=== PATIENT | male | born 1935 | race Caucasian/White ===

== ENCOUNTER → 2019-03-30 10:45 | Outpatient (BNVA) | payer MEDICARE, SELFPAY | PROVIDERS: Family Provider Nurse Practitioner Family; PCP Nurse Practitioner Family; Visit Provider Internal Medicine Cardiovascular Disease | DX: I10 Essential (primary) hypertension (principal); E78.2 Mixed hyperlipidemia; E78.5 Hyperlipidemia, unspecified; I48.11 Longstanding persistent atrial fibrillation; I25.10 Atherosclerotic heart disease of native coronary artery without angina pectoris | CPT/HCPCS: 80061 ==

== ENCOUNTER → 2019-12-22 11:56 | Outpatient (BNVA) | payer MEDICARE, SELFPAY | PROVIDERS: Family Provider Nurse Practitioner Family; Visit Provider Internal Medicine Cardiovascular Disease | DX: E78.2 Mixed hyperlipidemia (principal) | CPT/HCPCS: 80061; 80076 ==

== ENCOUNTER → 2020-06-20 12:19 | Outpatient (BNVA) | payer MEDICARE, SELFPAY | PROVIDERS: Family Provider Nurse Practitioner Family; Visit Provider Internal Medicine Cardiovascular Disease | DX: E78.2 Mixed hyperlipidemia (principal) | CPT/HCPCS: 80061; 80076 ==

== ENCOUNTER 2020-10-26 17:43 | Emergency (ER) | payer MEDICARE, SELFPAY ==
[2020-10-26 17:50] VITALS: BP 126/78; PULSE 75; RESP 16; TEMP 37.7; O2SAT 94; BMI 23.7
--- NOTE | 2020-10-26 18:59 | ED_ITS ---
HPI - Weakness General: Chief complaint: Weakness Stated complaint: FEVER, DEHYDRATED (P/PCP), COUGH Time Seen by Provider: 10/26/20 18:59 History of Present Illness: HPI Narrative: 84-year-old male patient comes in today for fever. Patient believes he got overheated yesterday. Patient does report he did get exposed to COVID-19 at [employer] last week. Patient appears mildly unwell but not toxic. Patient refused COVID-19 testing. Patient is alert and oriented and responds appropriate to questions. Patient son is chaperoning. Associated symptoms: Reports fever(s) Review of Systems General: Reports: 10 or more systems reviewed and unremarkable except in HPI and below Const: Reports: fever(s) PFS ED PFSH: Medical History (Updated 10/26/20 @ 20:12 by KILO Thomson) ASHD (arteriosclerotic heart disease) Had CABG July of [address] Valadez.HAD THREEE VESSEL CABG Atrial fibrillation Hyperlipidemia Hypertension Surgical History History of cataract removal with insertion of prosthetic lens Hx of CABG Family History Brother CAD (coronary artery disease) Family/Other Chronic kidney disease (CKD) Dementia Denies family history of Diabetes Clotting disorder Suicide Anesthesia complication Bleeding disorder Lung disease Cancer Stroke Social History Smoking and tobacco status: never smoked Alcohol intake: never Physical Exam Const: COMMON NORMALS: no acute distress and patient oriented x3 GENERAL APPEARANCE: cooperative HENMT: COMMON NORMALS: normocephalic and Normal external nose present HEAD & SCALP: normal to inspection and normocephalic NOSE: Normal external nose present MOUTH: Normal oral and palatal mucosa present THROAT: posterior oropharynx normal Eye: GENERAL EYE: appearance normal, both eyes and all related structures Neck/C-Spine: COMMON NORMALS: full ROM Lymph: LYMPHATIC: no lymphadenopathy noted Chest: COMMONS NORMALS: normal inspection of the chest Resp: COMMON NORMALS: normal respiratory effort and clear to auscultation bilaterally EFFORT & INSPECTION: Yes able to speak in complete sentences AUSCULTATION: clear to auscultation bilaterally Cardio: COMMON NORMALS: regular rate and regular rhythm RATE: regular rate RHYTHM: regular rhythm GI: COMMON NORMALS: non-tender : COMMON NORMALS: Yes no CVA tenderness BLADDER/KIDNEY EXAM: Yes no CVA tenderness Back/Pelvis: COMMON NORMALS: no CVA tenderness and thoracic and lumbar spine normal to inspection Extremity: COMMON NORMALS: normal to inspection Neuro: COMMON NORMALS: patient oriented x3 and moves all extremities Psych: COMMON NORMALS: mental status grossly normal and cooperative Skin: COMMON NORMALS: no rashes or lesions noted GENERAL SKIN EXAM: no rashes or lesions noted Course Vital Signs: Vital signs: Vital Signs Temperature 98.2 F 10/26/20 20:09 Pulse Rate 75 10/26/20 20:09 Respiratory Rate 18 10/26/20 20:09 Blood Pressure 147/83 10/26/20 20:09 Pulse Oximetry 96 10/26/20 20:09 MDM - Weakness MDM Narrative: Medical decision making narrative: 84-year-old male patient comes in today for complaints of heat exhaustion. Patient states he got overheated yesterday while working outside at 102 fever last night but today has not run much of a fever. Patient does admit that he was exposed to COVID-19 through his [facility]. Patient does report an occasional cough. On exam respirations are even lungs are clear to auscultation. Abdomen is soft with some hyperactive bowel sounds. Skin is warm and dry. Oral mucosa is mildly d ry. Differential diagnosis includes heat exhaustion, viral syndrome, pneumonia. Chest x-ray was normal. Laboratory values were unremarkable. Patient refused COVID-19 testing. Patient was infused with 1 L of IV fluid and felt improved after the fluids. We will go ahead and encourage patient to treat for viral syndrome. I suspect COVID-19 due to exposure but patient refused testing and further treatment at this time. Patient can return as needed for worsening symptoms or new concerns. Lab Data: Labs: Lab Results 10/26/20 10/26/20 Range/Units 18:55 18:55 WBC 6.8 (4.0-10.0) 10^3/ uL RBC 3.61 L (4.1-5.3) 10^6/u L Hgb 11.6 L (11.7-16.6) g/dL Hct 36.5 L (42.0-52.0) % MCV 101.1 H (80-94) fl MCH 32.1 (28.0-34.0) pg MCHC 31.8 (30.0-36.0) g/dL RDW 13.9 (12.1-15.1) % Plt Count 163 (130-400) 10^3/c mm MPV 10.3 (7.4-10.4) fL Neut % (Auto) 59.6 % Lymph % (Auto) 19.3 % [place] % (Auto) 18.6 % Eos % (Auto) 1.8 % Baso % (Auto) 0.3 % Neut # (Auto) 4.08 (1.8-7.7) 10^3/u L Lymph # (Auto) 1.3 (0.8-4.8) 10^3/u L [place] # (Auto) 1.3 H (0.2-0.9) 10^3/u L Eos # (Auto) 0.1 (0.0-0.8) 10^3/u L Baso # (Auto) 0.0 (0.0-0.1) 10^3/u L Nucleated RBC % (a uto) 0 % Nucleated RBCs # 0.0 /100WBC Sodium 134 L (136-145) mmol/L Potassium 3.9 (3.5-5.1) mmol/L Chloride 99 (98-107) mmol/L Carbon Dioxide 26 (22-29) mmol/L Anion Gap 12.9 (5-19) BUN 23 (8-23) mg/dL Creatinine 0.9 (0.7-1.2) mg/dL GFR Calculation Not Reportable Glucose 91 (65-115) mg/dL Calculated Osmolal ity 281 L (285-295) mOsm/k g Calcium 8.1 L (8.5-10.5) mg/dL Total Bilirubin 0.2 (0.15-1.2) mg/dL AST 27 (0-40) U/L ALT 13 (0-41) U/L Alkaline Phosphata se 66 (40-130) IU/L Creatine Kinase 178 (39-308) U/L Total Protein 6.6 (6.6-8.7) g/dL Albumin 3.8 (3.5-5.2) g/dL Globulin 2.8 (1.3-4.6) g/dL Discharge Plan Discharge Patient Disposition: Home Clinical Impression: Dehydration, mild, Viral syndrome Condition: Stable Prescriptions: No Action multivitamin Tablet 1 tab PO QAM RF: 0 metronidazole 1 % gel 1 applic TOPICAL DAILY RF: 0 aspirin 325 mg tablet 325 mg PO DAILY RF: 0 Coricidin HBP Chest Juan Diego-Cough 10-200 mg capsule 1 tab-cap PO Q8H PRNRF: 0 cetirizine 5 mg tablet 10 mg PO DAILY RF: 0 rosuvastatin 5 mg tablet See Rx Instructions .ROUTE .COMPLEX Qty: 90 RF: 3 metoprolol tartrate 25 mg tablet 12.5 mg PO BID Qty: 90 RF: 3 Discharge Orders: Discharge ED (Routine); Ordered 10/26/20 Ordered By: Serjio Roblero Referrals: JUAN ALBERTO Cortes, OWNER CONSULTING ENGINEER [Primary Care Provider] - Discharge Diet: Usual diet Discharge Activity: Increase activity as tolerated Patient Instructions: Viral Syndrome (ED), Opioid Safety Activity Restrictions/Additional Instructions: Home and rest. Drink plenty of fluids. Use Pedialyte, or Gatorade diluted with water. Use acetaminophen as needed for fever and discomfort. Follow-up with primary care for further instruction. Return to the ER for worsening symptoms or new concerns. Coding Level of Care Code ED Building Architectural Designer for Bala Das
[2020-10-26] MEDS: sodium chloride 0.9% 1,000 ML 999 ML IV (19:00)
--- NOTE | 2020-10-26 19:05 | XRR_ITS ---
PROCEDURE INFORMATION: Exam: XR Chest Exam date and time: 10/26/2020 7:05 PM Age: 84 years old Clinical indication: Cough and fever; Additional info: Cough, fever TECHNIQUE: Imaging protocol: XR of the chest. Views: 1 view. COMPARISON: CR Chest 2 views* [id number] 03/15/2014 11:39 AM FINDINGS: Lungs: Stable chronic interstitial changes in both lungs. No consolidation. Nipple shadow projects over the left lung base. Pleural spaces: Unremarkable. No pleural effusion. No pneumothorax. Heart/Mediastinum: Unremarkable. No cardiomegaly. Bones/joints: Sternotomy wires. XR/XR chest 1V portable [id number] IMPRESSION: No acute finding.
[2020-10-26 19:09] LABS: Basophils % 0.3 %; Eosinophils # 0.1 10^3/uL (0.0-0.8); Eosinophils % 1.8 %; Hematocrit 36.5 % (42.0-52.0); Hemoglobin 11.6 g/dL (11.7-16.6); Lymphocytes # 1.3 10^3/uL (0.8-4.8); Lymphocytes % 19.3 %; Mean Corpuscular HGB Conc 31.8 g/dL (30.0-36.0); Mean Corpuscular Hemoglobin 32.1 pg (28.0-34.0); Mean Corpuscular Volume 101.1 fl (80-94); Mean Platelet Volume 10.3 fL (7.4-10.4); Monocytes # 1.3 10^3/uL (0.2-0.9); Monocytes % 18.6 %; Neutrophils # 4.08 10^3/uL (1.8-7.7); Neutrophils % 59.6 %; Nucleated Red Blood Cells % 0 %; Platelet Count 163 10^3/cmm (130-400); Red Blood Count 3.61 10^6/uL (4.1-5.3); Red Cell Distribution Width 13.9 % (12.1-15.1); White Blood Count 6.8 10^3/uL (4.0-10.0)
--- NOTE | 2020-10-26 19:35 | PC.NURSE ---
patient refused covid swab
[2020-10-26 19:55] LABS: Alanine Aminotransferase 13 U/L (0-41); Albumin Level 3.8 g/dL (3.5-5.2); Alkaline Phosphatase 66 IU/L (40-130); Anion Gap 12.9 (5-19); Aspartate Amino Transferase 27 U/L (0-40); Blood Urea Nitrogen 23 mg/dL (8-23); Calcium 8.1 mg/dL (8.5-10.5); Carbon Dioxide 26 mmol/L (22-29); Chloride 99 mmol/L (98-107); Creatine Phosphokinase 178 U/L (39-308); Globulin 2.8 g/dL (1.3-4.6); Glucose 91 mg/dL (65-115); Osmolality Calculated 281 mOsm/kg (285-295); Potassium 3.9 mmol/L (3.5-5.1); Sodium 134 mmol/L (136-145); Total Bilirubin 0.2 mg/dL (0.15-1.2); Total Protein 6.6 g/dL (6.6-8.7)
[2020-10-26 20:09] VITALS: BP 147/83; PULSE 75; RESP 18; TEMP 36.8; O2SAT 96
== END 2020-10-26 20:25 | disposition home or self-care (01) ==
PROVIDERS: Emergency Medicine; Absent Provider Internal Medicine Cardiovascular Disease; Emergency Provider Nurse Practitioner Family; PCP Nurse Practitioner Family
DX: E86.0 Dehydration (principal); B34.9 Viral infection, unspecified; Z79.82 Long term (current) use of aspirin; E78.5 Hyperlipidemia, unspecified; I10 Essential (primary) hypertension; Z95.1 Presence of aortocoronary bypass graft
CPT/HCPCS: 71045; 80053; 82550; 85025; 96360; 99283; J7030

== ENCOUNTER → 2020-11-03 09:05 | Outpatient (BNVA) | payer MEDICARE, SELFPAY | PROVIDERS: PCP Nurse Practitioner Family; Visit Provider Nurse Practitioner Family | DX: R06.02 Shortness of breath (principal); I48.11 Longstanding persistent atrial fibrillation; Z95.1 Presence of aortocoronary bypass graft | CPT/HCPCS: 71046 ==

== ENCOUNTER 2020-11-03 10:50 | Inpatient (IN) | payer MEDICARE, SELFPAY ==
[2020-11-03] VITALS (22 sets, daily range): BP systolic 106–144; BP diastolic 55–97; PULSE 80–160; RESP 20–105; TEMP 36.6–37.3; O2SAT 86–99; BMI 21.9
--- NOTE | 2020-11-03 11:03 | ECG_ITS ---
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1935 Requested By: Eduard Davison Order Number: [id number] Reading MD: CARLOS ROWLAND Measurements Intervals [place] Rate: 107 P: AR: QRS: 10 QRSD: 93 T: 123 QT: 336 QTc: 450 Interpretive Statements ATRIAL FIBRILLATION WITH RAPID VENTRICULAR RESPONSE NONSPECIFIC ST & T-WAVE ABNORMALITY WARNING: DATA QUALITY MAY AFFECT INTERPRETATION No previous ECG available for comparison Electronically Signed On 11-04-2020 20:16:44 CDT by CARLOS ROWLAND [id number]
--- NOTE | 2020-11-03 11:03 | XR_ITS ---
WS: [id number] Portable AP upright chest, 11/03/2020, 1114 hours Clinical Data: dyspnea/cough Comparison: PA and lateral chest, 11/03/2020. 0914 hours Findings: The bilateral patchy opacities remain the same. The heart is slightly enlarged. The aortic arch and descending aorta show tortuosity. There is a small bilateral pleural effusions. Midline ster notomy sutures are present. There are monitor leads on the chest wall. XR/XR chest 1V portable [id number] Impression: 1. Bilateral patchy opacities consistent with pneumonia. 2. Cardiomegaly and atherosclerosis.
--- NOTE | 2020-11-03 11:05 | W.ED.COVID ---
HPI - COVID General: Chief Complaint: COVID symptoms Stated Complaint: PNEUMONIA, SOB, AFIB 117 Time Seen by Provider: 11/03/20 11:02 History of Present Illness: HPI Narrative: 84-year-old male presents to the emergency room with complaints of shortness of breath. Symptoms began 1 week ago.He had been exposed to excessive heat outdoors for period of time and he was in atrial fibrillation. He had been febrile since the night before. He was initially seen in the clinic and sent to the ER. Patient had a known Covid exposure approximately a week prior at [facility]. On arrival here he is hypoxic and was requiring 6 L by nasal cannula from EMS. He was transported here a week ago from the office at that time patient refused Covid testing and he was given steroids and doxycycline. He has worsened since then on arrival here and exam is consistent with Covid. COVID 19 common symptoms: positive fever(s), chills, productive cough, dyspnea, body aches, headache(s), nasal congestion and diarrhea COVID 19 other sytmptoms: positive requiring oxygen; negative chest pain Onset (ago): week(s) (1) Severity: moderate Pertinent comorbid conditions: heart disease Treatment prior to arrival: antibiotics and steroids COVID Results: SARS-CoV-2 Antigen (Rapid) Positive (Negative) H 11/03/20 11:12 11/03/20 SARS-CoV-2 RNA (RT-PCR) Detected (NOT DETECTED) A 11/03/20 11:12 11/03/20 Review of Systems Const: Reports: fever(s), chills and body aches ENMT: Reports: nasal congestion Card: Denies: chest pain, edema, dyspnea on exertion or orthopnea Resp: Reports: dyspnea and productive cough GI: Reports: diarrhea : Denies: flank pain, dysuria, urinary frequency or urinary urgency Skin/Breast: Denies: rash or pruritus Neuro: Reports: headache(s) PFS ED PFSH: Medical History ASHD (arteriosclerotic heart disease) Had CABG July of [address] Valadez.HAD THREEE VESSEL CABG Atrial fibrillation Hyperlipidemia Hypertension Shortness of Breath Upper respiratory infection Surgical History History of cataract removal with insertion of prosthetic lens Hx of CABG Family History Brother CAD (coronary artery disease) Family/Other Chronic kidney disease (CKD) Dementia Denies family history of Diabetes Clotting disorder Suicide Anesthesia complication Bleeding disorder Lung disease Cancer Stroke Social History Smoking and tobacco status: never smoked Alcohol intake: never Physical Exam Const: GENERAL APPEARANCE: cooperative ORIENTATION/CONSCIOUSNESS: Yes awake, Yes oriented to person, Yes oriented to place and Yes oriented to time HENMT: COMMON NORMALS: normocephalic, atraumatic and hearing grossly normal bilaterally HEAD & SCALP: normocephalic and atraumatic Resp: AUSCULTATION: crackles and wheezes Cardio: RATE: tachycardic RHYTHM: abnormal rhythm irregularly irregular GI: COMMON NORMALS: Soft to palpation and No hepatosplenomegaly present AUSCULTATION: Yes normoactive bowel sounds PALPATION: Yes Soft to palpation, No Tenderness to palpation present (GI), No Guarding due to palpation present (GI) and Yes No hepatosplenomegaly present Extremity: COMMON NORMALS: normal to inspection, capillary refill normal, no calf tenderness and no pedal edema Neuro: SENSORIUM/ORIENTATION: Yes oriented to person, Yes oriented to place and Yes oriented to time Skin: COMMON NORMALS: no rashes or lesions noted GENERAL SKIN EXAM: no rashes or lesions noted Course Vital Signs: Vital signs: Vital Signs Temperature 98.1 F 11/09/20 08:00 Pulse Rate 90 11/09/20 12:00 Respiratory Rate 22 H 11/09/20 12:00 Blood Pressure 128/80 11/09/20 12:00 Pulse Oximetry 94 11/09/20 12:00 MDM - COVID MDM Narrative: Medical decision making narrative: Patient has severe Covid positive antigen PCR is pending. Patient was seen 1 week ago at that time family refused to allow him to be tested for Covid he was febrile he started on dexamethasone and doxycycline as an alternative since it would not allow testing. Today he agreed to testing when he arrived and Covid was positive on the antigen screen. The remainder of the labs and imaging reviewed. His procalcitonin is normal reviewed with the hospitalist. Orders are written Dr. Hunt will be the attending and discussed with the son at the patient's request. Lab Data: Labs: Lab Results 11/03/20 11/03/20 11/03/20 Range/Units 09:50 09:50 09:50 WBC 9.3 (4.0-10.0) 10^3/ uL RBC 4.02 L (4.1-5.3) 10^6/u L Hgb 12.8 (11.7-16.6) g/dL Hct 38.5 L (42.0-52.0) % MCV 95.8 H (80-94) fl MCH 31.8 (28.0-34.0) pg MCHC 33.2 (30.0-36.0) g/dL RDW 13.4 (12.1-15.1) % Plt Count 196 (130-400) 10^3/c mm MPV 11.4 H (7.4-10.4) fL Neut % (Auto) 82.9 % Lymph % (Auto) 7.2 % [place] % (Auto) 9.0 % Eos % (Auto) 0.0 % Baso % (Auto) 0.1 % Neut # (Auto) 7.68 (1.8-7.7) 10^3/u L Lymph # (Auto) 0.7 L (0.8-4.8) 10^3/u L [place] # (Auto) 0.8 (0.2-0.9) 10^3/u L Eos # (Auto) 0.0 (0.0-0.8) 10^3/u L Baso # (Auto) 0.0 (0.0-0.1) 10^3/u L Nucleated RBC % (a uto) 0 % Nucleated RBCs # 0.0 /100WBC D-Dimer (0-0.59) ug/mIFE U Specimen Type Sample Site ABG pH (7.35-7.45) ABG pCO2 (35-45) mmHg ABG pO2 (80.0-100.0) mmH g ABG HCO3 (22-26) mmol/L ABG O2 Saturation ABG Base Excess (-2.0-2.0) mmol/ L Toby Test A-a O2 Gradient (5-10) mmHg Hematocrit (42-52) % Hgb O2 Saturation (95-100) % Carboxyhemoglobin (0.4-20.1) %THgb Methemoglobin (0.4-1.5) % Total Hemoglobin (14-18) g/dL Ionized Calcium (1.1-1.4) mmol/L O2 Delivery Device O2 Liters/Min % Field Sales Engineer ID Sodium 135 L (136-145) mmol/L Potassium 3.7 (3.5-5.1) mmol/L Chloride 94 L (98-107) mmol/L Carbon Dioxide 28 (22-29) mmol/L Anion Gap 16.7 (5-19) BUN 26 H (8-23) mg/dL Creatinine 0.7 (0.7-1.2) mg/dL GFR Calculation Not Reportable Glucose 75 (65-115) mg/dL Calculated Osmolal ity 283 L (285-295) mOsm/k g Lactic Acid (0.5-2.2) mmol/L Calcium 8.6 (8.5-10.5) mg/dL Total Bilirubin 0.6 (0.15-1.2) mg/dL AST 77 H (0-40) U/L ALT 89 H (0-41) U/L Alkaline Phosphata se 77 (40-130) IU/L Creatine Kinase 103 (39-308) U/L Troponin T Baselin e 30 H (0-15) ng/L Troponin T 120 Min letitia (0-15) ng/L Delta Troponin T (0-10) ABS# Troponin T Hi Sens 6Hr (0-15) ng/L Troponin T Hi Sens 6Hr Delta (0-12) ng/L C-Reactive Protein 34.1 H (0.0-4.9) mg/L Total Protein 6.5 L (6.6-8.7) g/dL Albumin 3.6 (3.5-5.2) g/dL Globulin 2.9 (1.3-4.6) g/dL Procalcitonin (0-0.5) ng/mL Urine Color (Yellow) Urine Appearance (CLEAR) Urine pH (5-7) Ur Specific Gravit y (1.005-1.030) Urine Protein (Negative) Urine Glucose (UA) (Normal) Urine Ketones (Negative) Urine Blood (Negative) Urine Nitrate (Negative) Urine Bilirubin (Negative) Urine Urobilinogen (Negative) mg/dL Ur Leukocyte [place] ase (Negative) Urine RBC (0-2) /hpf Urine WBC (0-5) /hpf Ur Squamous Epith Cells (0-5) /hpf Amorphous Sediment Urine Bacteria (NONE) /hpf Hyaline Casts /lpf Urine Mucus /hpf SARS-CoV-2 RNA (RT -PCR) (NOT DETECTED) SARS-CoV-2 Ag (Rap id) (Negative) 11/03/20 11/03/20 11/03/20 Range/Units 09:50 11:12 11:12 WBC (4.0-10.0) 10^3/ uL RBC (4.1-5.3) 10^6/u L Hgb (11.7-16.6) g/dL Hct (42.0-52.0) % MCV (80-94) fl MCH (28.0-34.0) pg MCHC (30.0-36.0) g/dL RDW (12.1-15.1) % Plt Count (130-400) 10^3/c mm MPV (7.4-10.4) fL Neut % (Auto) % Lymph % (Auto) % [place] % (Auto) % Eos % (Auto) % Baso % (Auto) % Neut # (Auto) (1.8-7.7) 10^3/u L Lymph # (Auto) (0.8-4.8) 10^3/u L [place] # (Auto) (0.2-0.9) 10^3/u L Eos # (Auto) (0.0-0.8) 10^3/u L Baso # (Auto) (0.0-0.1) 10^3/u L Nucleated RBC % (a uto) % Nucleated RBCs # /100WBC D-Dimer 0.93 H (0-0.59) ug/mIFE U Specimen Type Arterial Sample Site Radial, left ABG pH 7.54 H (7.35-7.45) ABG pCO2 32.4 L (35-45) mmHg ABG pO2 58.0 L (80.0-100.0) mmH g ABG HCO3 27.8 H (22-26) mmol/L ABG O2 Saturation 93.0 ABG Base Excess 5.4 H (-2.0-2.0) mmol/ L Toby Test Pos A-a O2 Gradient 6.7 (5-10) mmHg Hematocrit 39.8 L (42-52) % Hgb O2 Saturation 91.4 L (95-100) % Carboxyhemoglobin 1.0 (0.4-20.1) %THgb Methemoglobin 0.7 (0.4-1.5) % Total Hemoglobin 13.0 L (14-18) g/dL Ionized Calcium 1.2 (1.1-1.4) mmol/L O2 Delivery Device Nc O2 Liters/Min 6.0 % Field Sales Engineer ID Cak Sodium 138.0 (136-145) mmol/L Potassium 3.6 (3.5-5.1) mmol/L Chloride (98-107) mmol/L Carbon Dioxide (22-29) mmol/L Anion Gap (5-19) BUN (8-23) mg/dL Creatinine (0.7-1.2) mg/dL GFR Calculation Glucose 95.0 (65-115) mg/dL Calculated Osmolal ity (285-295) mOsm/k g Lactic Acid (0.5-2.2) mmol/L Calcium (8.5-10.5) mg/dL Total Bilirubin (0.15-1.2) mg/dL AST (0-40) U/L ALT (0-41) U/L Alkaline Phosphata se (40-130) IU/L Creatine Kinase (39-308) U/L Troponin T Baselin e (0-15) ng/L Troponin T 120 Min letitia (0-15) ng/L Delta Troponin T (0-10) ABS# Troponin T Hi Sens 6Hr (0-15) ng/L Troponin T Hi Sens 6Hr Delta (0-12) ng/L C-Reactive Protein (0.0-4.9) mg/L Total Protein (6.6-8.7) g/dL Albumin (3.5-5.2) g/dL Globulin (1.3-4.6) g/dL Procalcitonin (0-0.5) ng/mL Urine Color (Yellow) Urine Appearance (CLEAR) Urine pH (5-7) Ur Specific Gravit y (1.005-1.030) Urine Protein (Negative) Urine Glucose (UA) (Normal) Urine Ketones (Negative) Urine Blood (Negative) Urine Nitrate (Negative) Urine Bilirubin (Negative) Urine Urobilinogen (Negative) mg/dL Ur Leukocyte [place] ase (Negative) Urine RBC (0-2) /hpf Urine WBC (0-5) /hpf Ur Squamous Epith Cells (0-5) /hpf Amorphous Sediment Urine Bacteria (NONE) /hpf Hyaline Casts /lpf Urine Mucus /hpf SARS-CoV-2 RNA (RT -PCR) (NOT DETECTED) SARS-CoV-2 Ag (Rap id) Positive H (Negative) 11/03/20 11/03/20 11/03/20 Range/Units 11:12 12:35 13:15 WBC (4.0-10.0) 10^3/ uL RBC (4.1-5.3) 10^6/u L Hgb (11.7-16.6) g/dL Hct (42.0-52.0) % MCV (80-94) fl MCH (28.0-34.0) pg MCHC (30.0-36.0) g/dL RDW (12.1-15.1) % Plt Count (130-400) 10^3/c mm MPV (7.4-10.4) fL Neut % (Auto) % Lymph % (Auto) % [place] % (Auto) % Eos % (Auto) % Baso % (Auto) % Neut # (Auto) (1.8-7.7) 10^3/u L Lymph # (Auto) (0.8-4.8) 10^3/u L [place] # (Auto) (0.2-0.9) 10^3/u L Eos # (Auto) (0.0-0.8) 10^3/u L Baso # (Auto) (0.0-0.1) 10^3/u L Nucleated RBC % (a uto) % Nucleated RBCs # /100WBC D-Dimer (0-0.59) ug/mIFE U Specimen Type Sample Site ABG pH (7.35-7.45) ABG pCO2 (35-45) mmHg ABG pO2 (80.0-100.0) mmH g ABG HCO3 (22-26) mmol/L ABG O2 Saturation ABG Base Excess (-2.0-2.0) mmol/ L Toby Test A-a O2 Gradient (5-10) mmHg Hematocrit (42-52) % Hgb O2 Saturation (95-100) % Carboxyhemoglobin (0.4-20.1) %THgb Methemoglobin (0.4-1.5) % Total Hemoglobin (14-18) g/dL Ionized Calcium (1.1-1.4) mmol/L O2 Delivery Device O2 Liters/Min % Field Sales Engineer ID Sodium (136-145) mmol/L Potassium (3.5-5.1) mmol/L Chloride (98-107) mmol/L Carbon Dioxide (22-29) mmol/L Anion Gap (5-19) BUN (8-23) mg/dL Creatinine (0.7-1.2) mg/dL GFR Calculation Glucose (65-115) mg/dL Calculated Osmolal ity (285-295) mOsm/k g Lactic Acid (0.5-2.2) mmol/L Calcium (8.5-10.5) mg/dL Total Bilirubin (0.15-1.2) mg/dL AST (0-40) U/L ALT (0-41) U/L Alkaline Phosphata se (40-130) IU/L Creatine Kinase (39-308) U/L Troponin T Baselin e (0-15) ng/L Troponin T 120 Min letitia 31.72 H (0-15) ng/L Delta Troponin T 1.72 (0-10) ABS# Troponin T Hi Sens 6Hr (0-15) ng/L Troponin T Hi Sens 6Hr Delta (0-12) ng/L C-Reactive Protein (0.0-4.9) mg/L Total Protein (6.6-8.7) g/dL Albumin (3.5-5.2) g/dL Globulin (1.3-4.6) g/dL Procalcitonin (0-0.5) ng/mL Urine Color Yellow (Yellow) Urine Appearance Clear (CLEAR) Urine pH 6.5 (5-7) Ur Specific Gravit y 1.015 (1.005-1.030) Urine Protein 3+ H (Negative) Urine Glucose (UA) Norm (Normal) Urine Ketones Negative (Negative) Urine Blood 2+ H (Negative) Urine Nitrate Negative (Negative) Urine Bilirubin Neg (Negative) Urine Urobilinogen Norm (Negative) mg/dL Ur Leukocyte [place] ase Negative (Negative) Urine RBC 0-4 H (0-2) /hpf Urine WBC 0-4 H (0-5) /hpf Ur Squamous Epith Cells 0-4 H (0-5) /hpf Amorphous Sediment Not Reportable Urine Bacteria Trace (NONE) /hpf Hyaline Casts Rare /lpf Urine Mucus 2+ /hpf SARS-CoV-2 RNA (RT -PCR) Detected A (NOT DETECTED) SARS-CoV-2 Ag (Rap id) (Negative) 11/03/20 11/03/20 11/03/20 Range/Units 16:01 16:01 16:01 WBC (4.0-10.0) 10^3/ uL RBC (4.1-5.3) 10^6/u L Hgb (11.7-16.6) g/dL Hct (42.0-52.0) % MCV (80-94) fl MCH (28.0-34.0) pg MCHC (30.0-36.0) g/dL RDW (12.1-15.1) % Plt Count (130-400) 10^3/c mm MPV (7.4-10.4) fL Neut % (Auto) % Lymph % (Auto) % [place] % (Auto) % Eos % (Auto) % Baso % (Auto) % Neut # (Auto) (1.8-7.7) 10^3/u L Lymph # (Auto) (0.8-4.8) 10^3/u L [place] # (Auto) (0.2-0.9) 10^3/u L Eos # (Auto) (0.0-0.8) 10^3/u L Baso # (Auto) (0.0-0.1) 10^3/u L Nucleated RBC % (a uto) % Nucleated RBCs # /100WBC D-Dimer (0-0.59) ug/mIFE U Specimen Type Sample Site ABG pH (7.35-7.45) ABG pCO2 (35-45) mmHg ABG pO2 (80.0-100.0) mmH g ABG HCO3 (22-26) mmol/L ABG O2 Saturation ABG Base Excess (-2.0-2.0) mmol/ L Toby Test A-a O2 Gradient (5-10) mmHg Hematocrit (42-52) % Hgb O2 Saturation (95-100) % Carboxyhemoglobin (0.4-20.1) %THgb Methemoglobin (0.4-1.5) % Total Hemoglobin (14-18) g/dL Ionized Calcium (1.1-1.4) mmol/L O2 Delivery Device O2 Liters/Min % Field Sales Engineer ID Sodium (136-145) mmol/L Potassium (3.5-5.1) mmol/L Chloride (98-107) mmol/L Carbon Dioxide (22-29) mmol/L Anion Gap (5-19) BUN (8-23) mg/dL Creatinine (0.7-1.2) mg/dL GFR Calculation Glucose (65-115) mg/dL Calculated Osmolal ity (285-295) mOsm/k g Lactic Acid 1.4 (0.5-2.2) mmol/L Calcium (8.5-10.5) mg/dL Total Bilirubin (0.15-1.2) mg/dL AST (0-40) U/L ALT (0-41) U/L Alkaline Phosphata se (40-130) IU/L Creatine Kinase (39-308) U/L Troponin T Baselin e (0-15) ng/L Troponin T 120 Min letitia (0-15) ng/L Delta Troponin T (0-10) ABS# Troponin T Hi Sens 6Hr 34.57 H (0-15) ng/L Troponin T Hi Sens 6Hr Delta 4.57 (0-12) ng/L C-Reactive Protein (0.0-4.9) mg/L Total Protein (6.6-8.7) g/dL Albumin (3.5-5.2) g/dL Globulin (1.3-4.6) g/dL Procalcitonin 0.27 (0-0.5) ng/mL Urine Color (Yellow) Urine Appearance (CLEAR) Urine pH (5-7) Ur Specific Gravit y (1.005-1.030) Urine Protein (Negative) Urine Glucose (UA) (Normal) Urine Ketones (Negative) Urine Blood (Negative) Urine Nitrate (Negative) Urine Bilirubin (Negative) Urine Urobilinogen (Negative) mg/dL Ur Leukocyte [place] ase (Negative) Urine RBC (0-2) /hpf Urine WBC (0-5) /hpf Ur Squamous Epith Cells (0-5) /hpf Amorphous Sediment Urine Bacteria (NONE) /hpf Hyaline Casts /lpf Urine Mucus /hpf SARS-CoV-2 RNA (RT -PCR) (NOT DETECTED) SARS-CoV-2 Ag (Rap id) (Negative) COVID Results: SARS-CoV-2 Antigen (Rapid) Positive (Negative) H 11/03/20 11:12 11/03/20 SARS-CoV-2 RNA (RT-PCR) Detected (NOT DETECTED) A 11/03/20 11:12 11/03/20 Discharge Plan Discharge Patient Disposition: Admitted As Inpatient Admit Provider: Regina Rubio Clinical Impression: Acute hypoxemic respiratory failure due to COVID-19, Atrial fibrillation Condition: Stable Coding Level of Care Code ED Pantograph I Engraver for Chg Fwd Exam Detailed
[2020-11-03 11:23] LABS: ABG PCO2 32.4 mmHg (35-45); ABG PH Result 7.54 (7.35-7.45); Alveolar-Arterial Oxygen Gradi 6.7 mmHg (5-10); Arterial Blood Gas Hematocrit 39.8 % (42-52); Base Excess ABG 5.4 mmol/L (-2.0-2.0); Blood Gas Allen Test Pos; Blood Gas Operator Identificat CAK; Blood Gas Sample Site Radial, left; Blood Gas Sample Type Arterial; HCO3 ABG 27.8 mmol/L (22-26); HGB O2 Sat 91.4 % (95-100); Ionized Calcium Level - ABG 1.2 mmol/L (1.1-1.4); Methemoglobin 0.7 % (0.4-1.5); Oxygen Device NC; Potassium Level - ABG 3.6 mmol/L (3.5-5.0)
[2020-11-03 11:24] LABS: Basophils % 0.1 %; Hematocrit 38.5 % (42.0-52.0); Hemoglobin 12.8 g/dL (11.7-16.6); Lymphocytes # 0.7 10^3/uL (0.8-4.8); Lymphocytes % 7.2 %; Mean Corpuscular HGB Conc 33.2 g/dL (30.0-36.0); Mean Corpuscular Hemoglobin 31.8 pg (28.0-34.0); Mean Corpuscular Volume 95.8 fl (80-94); Mean Platelet Volume 11.4 fL (7.4-10.4); Monocytes # 0.8 10^3/uL (0.2-0.9); Neutrophils # 7.68 10^3/uL (1.8-7.7); Neutrophils % 82.9 %; Nucleated Red Blood Cells % 0 %; Platelet Count 196 10^3/cmm (130-400); Red Blood Count 4.02 10^6/uL (4.1-5.3); Red Cell Distribution Width 13.4 % (12.1-15.1); White Blood Count 9.3 10^3/uL (4.0-10.0)
[2020-11-03 11:48] LABS: D Dimer 0.93 ug/mIFEU (0-0.59)
[2020-11-03 11:59] LABS: Alanine Aminotransferase 89 U/L (0-41); Albumin Level 3.6 g/dL (3.5-5.2); Alkaline Phosphatase 77 IU/L (40-130); Anion Gap 16.7 (5-19); Aspartate Amino Transferase 77 U/L (0-40); Blood Urea Nitrogen 26 mg/dL (8-23); C Reactive Protein 34.1 mg/L (0.0-4.9); Calcium 8.6 mg/dL (8.5-10.5); Carbon Dioxide 28 mmol/L (22-29); Chloride 94 mmol/L (98-107); Creatine Phosphokinase 103 U/L (39-308); Creatinine Clr Calc Pharmacy 63.2539; Globulin 2.9 g/dL (1.3-4.6); Glucose 75 mg/dL (65-115); Osmolality Calculated 283 mOsm/kg (285-295); Potassium 3.7 mmol/L (3.5-5.1); Sodium 135 mmol/L (136-145); Total Bilirubin 0.6 mg/dL (0.15-1.2); Total Protein 6.5 g/dL (6.6-8.7)
[2020-11-03 12:03] LABS: Troponin(5th) Baseline 30 ng/L (0-15)
[2020-11-03] MEDS: dexamethasone 4 mg/mL INJ 6 MG IVP (12:11)
--- NOTE | 2020-11-03 12:18 | PC.PHAR ---
PT STATES THAT HE TAKES CARE OF HIS OWN MEDICATIONS. HE STATES HE TAKES METOPROLOL TARTRATE, WHICH WAS FILLED ON 10/03/2020 FOR 90 DAYS. HIS CHART SHOWS THAT HE IS ALLERGIC TO METOPROLOL. I TRIED TO CONTACT HIS TO ASK HER ABOUT IT, BECAUSE THE PT WASN'T SURE, BUT THE NUMBER LISTED WAS DISCONNECTED. WE ARE NOT SUPPOSED TO TALK TO THE SON RIGHT NOW, SO I CANNOT CHECK WITH HIM.
[2020-11-03 12:19] LABS: SARS Covid-2 Antigen Positive (Negative)
[2020-11-03] MEDS: remdesivir 200 MG in sodium chloride 0.9% (100 ml) 60 ML 100 MG IV (12:23)
--- NOTE | 2020-11-03 13:04 | PC.NURSE ---
Son notified of patient testing positive for covid and that he was being admitted to ICU. Son verbalized understanding.
[2020-11-03 13:08] LABS: Troponin 5 2HR 31.72 ng/L (0-15); Troponin 5 2HR Delta 1.72 ABS# (0-10)
[2020-11-03 14:13] LABS: Add Urine Microscopic? YES; Bilirubin Urine Neg (Negative); Blood Urine 2+ (Negative); Glucose Urine UA Norm (Normal); Ketones Urine Negative (Negative); Leukocyte Esterase Urine Negative (Negative); Nitrate Urine Negative (Negative); Protein Urine 3+ (Negative); Specific Gravity, Urine 1.015 (1.005-1.030); Urine Appearance Clear (CLEAR); Urine Color Yellow (Yellow); Urobilinogen Urine Norm (Negative); pH Urine 6.5 (5-7)
[2020-11-03 14:16] LABS: Bacteria Urine TRACE /hpf; Mucus Urine 2+ /hpf; RBC Urine 0-4 /hpf (0-2); Squamous Epithelial Cell Urine 0-4 /hpf (0-5); WBC Urine 0-4 /hpf (0-5)
--- NOTE | 2020-11-03 14:16 | PC.NURSE ---
1330 Dr. Ennis out to talk with son and give update. Son was recording conversation without Dr. Ennis being aware. Into the conversation, Dr. Ennis heard beeping and asked if he was being recorded. Deny patient's son replied yes and Dr. Ennis ended conversation.
[2020-11-03 14:17] LABS: Add Urine Culture? No; Hyaline Casts Urine RARE /lpf
--- NOTE | 2020-11-03 14:53 | PC.NURSE ---
Son updated on father's status and verbalized understanding.
[2020-11-03 16:29] LABS: Lactic Sepsis W/Reflex 1.4 mmol/L (0.5-2.2)
[2020-11-03 16:40] LABS: Procalcitonin 0.27 ng/mL (0-0.5)
[2020-11-03 16:41] LABS: Troponin 5 6HR 34.57 ng/L (0-15); Troponin 5 6HR Delta 4.57 ng/L (0-12)
--- NOTE | 2020-11-03 16:57 | PC.NURSE ---
Son updated on father's status and lack of room assignment at this time. Verbalized understanding.
--- NOTE | 2020-11-03 17:03 | ECG_ITS ---
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: : 1935 Requested By: Eduard Davison Order Number: [id number] Reading MD: CARLOS ROWLAND Measurements Intervals [place] Rate: 91 P: 74 TX: 161 QRS: -19 QRSD: 96 T: 93 QT: 376 QTc: 464 Interpretive Statements SINUS RHYTHM WITH OCCASIONAL VENTRICULAR PREMATURE COMPLEXES WITH OCCASIONAL SUPRAVENTRICULAR PREMATURE COMPLEXES NONSPECIFIC T-WAVE ABNORMALITY Compared to ECG 11/03/2020 11:30:00 Ventricular premature complex(es) now present Atrial fibrillation no longer present T-wave abnormality still present Electronically Signed On 11-04-2020 20:18:45 CDT by CARLOS ROWLAND [id number]
[2020-11-03] MEDS: enoxaparin 40 mg/0.4 mL Syringe SUBCUT (17:43)
--- NOTE | 2020-11-03 18:34 | PM.HP ---
Providers/Chief Complaint Admitting Physician: Regina Rubio Primary Care Provider: KILO Padilla Chief Complaint: PNEUMONIA, SOB, AFIB 117 History of Present Illness 84-year-old male with a past medical history significant for hypertension, hyperlipidemia, Coronary artery disease with history bypass in 2013, and chronic atrial fibrillationHis presented to the hospital with respiratory distress. Patient was initially seen for this on 10/26/2020 during which time patient was noting a fever of 102.5.He was sent to ER for evaluation where patient refused COVID-19 testing. He was discharged from ER with doxycycline and Decadron.On follow-up outpatient visit patient was noted to have oxygen saturation of 73% on room air which had increased 84% on 2 L. Patient was transferred to ER where he was placed on high flow NC. Laboratory workup on arrival showed a WBC of 9.3, hemoglobin 12.8, hematocrit of 38.5 and a platelet count of 196. D-dimer of 0.93. Arterial blood gases showed a pH of 7.51, pCO2 of 32.3, PO2 Of 58 on high-flow with 51% FiO2 peer it sodium 135, potassium 3.7, chloride 94, bicarb 28, BUN 26 and creatinine 0.7. Lactic acid of 1.4. AST was elevated at 77, ALT of 89. Delta troponin T was 1.72, 4.57. Procalcitonin was 0.27. CRP of 34.1. Patient consented to COVID19 testing which showed rapid antigen to be positive. PCR was also ordered however this was pending. Imaging studies Included chest x-ray which showed bilateral patchy opacities consistent with pneumonia.Patient was started on Remdesivir for 5 day protocol. Dexamethasone 6 mg IV daily. Of note patient was also noted to have atrial fibrillation with rapid ventricular response. He was given cardizem 10 mg IV x1 and initiated on drip. Review of Systems General: Reports: 10 or more systems reviewed and unremarkable except in HPI and below Medications/Allergies Home Medications Medication Instructions Recorded Confirmed Last Taken Type multivitamin 1 tab PO DAILY 03/30/19 11/03/20 11/02/20 History metronidazole 1 % topical gel 1 applic TOPICAL DAILY 12/22/19 11/03/20 Unknown History aspirin 325 mg tablet 325 mg PO DAILY 06/20/20 11/03/20 11/02/20 History dextromethorphan-guaifenesin 10 1 tab-cap PO Q8H PRN 06/20/20 11/03/20 11/02/20 History mg-200 mg capsule metoprolol tartrate 25 mg tablet 12.5 mg PO BID #90 tab 10/03/20 11/03/20 11/02/20 Rx miscellaneous medical supply #1 ea 10/27/20 11/03/20 Unknown Rx dexamethasone 6 mg tablet 6 mg PO DAILY 7 Days #7 tab 10/28/20 11/03/20 11/02/20 Rx doxycycline monohydrate 100 mg 100 mg PO BID 7 Days #14 cap 10/28/20 11/03/20 11/02/20 Rx capsule rosuvastatin 5 mg PO DAILY 11/03/20 11/03/20 11/02/20 History Allergies Allergy/AdvReac Type Severity Reaction Status Date / Time metoprolol AdvReac Mild Pt has Verified 11/03/20 08:32 blisters/ swellilng around the eyes PFSH Acute PFSH: Medical History ASHD (arteriosclerotic heart disease) Had CABG July of [address] Valadez.HAD THREEE VESSEL CABG Atrial fibrillation Hyperlipidemia Hypertension Shortness of Breath Upper respiratory infection Surgical History History of cataract removal with insertion of prosthetic lens Hx of CABG Family History Brother CAD (coronary artery disease) Family/Other Chronic kidney disease (CKD) Dementia Denies family history of Diabetes Clotting disorder Suicide Anesthesia complication Bleeding disorder Lung disease Cancer Stroke Social History Smoking and tobacco status: never smoked Alcohol intake: never Vitals/I&O/Wt Last Vital Signs Temp 99.2 F 11/03/20 19:28 Pulse 90 11/03/20 20:18 Resp 20 H 11/03/20 20:18 BP 144/87 11/03/20 19:28 Pulse Ox 96 11/03/20 20:18 11/03/20 11/03/20 11/03/20 06:59 14:59 22:59 Intake Total 60 / 60 Output Total 325 / 325 Balance 60 / 60 -325 / -265 Weight last 48 hrs Weight 63.503 kg Physical Exam Narrative: EXAM NARRATIVE: General- ill-appearing with mild respiratory distress on high-flow HEENT- grossly unremarkable CVS-irregularly irregular Chest- mildly labored respiration, on high-flow nasal cannula Abdomen-nondistended Extremities-no edema Data : 11/03/20 09:50 11/03/20 09:50 A&P Assessment and plan (1) Acute hypoxemic respiratory failure due to COVID-19: Status: Acute (2) Atrial fibrillation with RVR: Status: Acute (3) Coronary artery abnormality: Status: Acute Additional A&P Information Acute hypoxemic respiratory failure due to COVID-19 pneumonia On arrival RR 30, Pa02 56, o2 saturation 78% on RA Continue Remdesivir - Last dose on 11/07/20 Decadron 6 mg daily x 10 days Suspected component of fluid overload - Lasix 20 mg IV BID ordered Continue HFNC - Fio2 51% 35L - Wean as tolerated Procal negative - Monitor off abx Ferritin, CRP, Procal, D-dimer in am Atrial Fibrillation with RVR On Cardizem get Verify metoprolol allergy Previously on oral diltizem - unclear why this was d/c On Asa 325mg PO daily for CVA prevention - Likely would need OAC Will d/c with risk vs Benefit Coronary artery disease hx of CABG Aspirin 325 mg PO daily Statin Telemetry Troponin trend not consistent with acute ischemia GI ppx Protonix 40 mg PO daily DVT ppx - Lovenox 40 mg SQ daily Attestations Medical Necessity Statement*: Will likely require over 2 midnight stay in hospital for evaluation and treatment of COVID-19 pneumonia and atrial fibrillation with rapid ventricular response Time Spent in Patient Care: Greater than 35 minutes (>than 50% of time spent in counselling and/or direct pt care on unit). Coding Level of Care Code Acute Catering Operations Manager for [facility] Diagnoses Acute hypoxemic respiratory failure due to COVID-19 U07.1; J96.01 Atrial fibrillation with RVR I48.91 Coronary artery abnormality Q24.5
[2020-11-03 18:38] LABS: ABG PCO2 32.3 mmHg (35-45); ABG PH Result 7.51 (7.35-7.45); Alveolar-Arterial Oxygen Gradi 33.4 mmHg (5-10); Arterial Blood Gas Hematocrit 40.1 % (42-52); Base Excess ABG 3.4 mmol/L (-2.0-2.0); Blood Gas Operator Identificat glc; Blood Gas Sample Site Brachial, right; Blood Gas Sample Type Arterial; Carboxyhemoglobin 0.7 %THgb (0.4-20.1); Ionized Calcium Level - ABG 1.1 mmol/L (1.1-1.4); Methemoglobin 0.3 % (0.4-1.5); Oxygen Device HAG; Oxygen Saturation ABG 94.9; PO2 ABG 64.5 mmHg (80.0-100.0); Potassium Level - ABG 3.7 mmol/L (3.5-5.0); Total Hemoglobin 13.1 g/dL (14-18)
--- NOTE | 2020-11-03 18:49 | PC.NURSE ---
transport to 1st floor with monitor on. patient tolerated well. HR remained 80s to low 100s. o2 sat greater than 95%
[2020-11-04] VITALS (28 sets, daily range): BP systolic 81–151; BP diastolic 48–115; PULSE 65–189; RESP 13–32; TEMP 36.9–37.6; O2SAT 86–97
[2020-11-04 05:59] LABS: Hematocrit 38.2 % (42.0-52.0); Hemoglobin 12.7 g/dL (11.7-16.6); Lymphocytes # 0.7 10^3/uL (0.8-4.8); Lymphocytes % 10.7 %; Mean Corpuscular HGB Conc 33.2 g/dL (30.0-36.0); Mean Corpuscular Hemoglobin 31.4 pg (28.0-34.0); Mean Corpuscular Volume 94.3 fl (80-94); Mean Platelet Volume 11.9 fL (7.4-10.4); Monocytes # 0.8 10^3/uL (0.2-0.9); Monocytes % 11.9 %; Neutrophils # 4.89 10^3/uL (1.8-7.7); Neutrophils % 76.8 %; Nucleated Red Blood Cells % 0 %; Platelet Count 195 10^3/cmm (130-400); Red Blood Count 4.05 10^6/uL (4.1-5.3); Red Cell Distribution Width 13.4 % (12.1-15.1); White Blood Count 6.4 10^3/uL (4.0-10.0)
[2020-11-04] MEDS: remdesivir 100 MG in sodium chloride 0.9% (100 ml) 80 ML IV (05:59)
[2020-11-04 06:44] LABS: D Dimer 0.94 ug/mIFEU (0-0.59)
[2020-11-04 06:51] LABS: Lactic Sepsis W/Reflex 1.6 mmol/L (0.5-2.2)
[2020-11-04 07:12] LABS: Procalcitonin 0.49 ng/mL (0-0.5); Thyroid Stimulating Hormone 0.69 uIU/mL (0.27-4.20)
[2020-11-04 07:23] LABS: Alanine Aminotransferase 58 U/L (0-41); Albumin Level 3.1 g/dL (3.5-5.2); Alkaline Phosphatase 63 IU/L (40-130); Blood Urea Nitrogen 23 mg/dL (8-23); C Reactive Protein 127.1 mg/L (0.0-4.9); Calcium 8.3 mg/dL (8.5-10.5); Carbon Dioxide 23 mmol/L (22-29); Chloride 95 mmol/L (98-107); Globulin 3.3 g/dL (1.3-4.6); Glucose 101 mg/dL (65-115); Osmolality Calculated 282 mOsm/kg (285-295); Sodium 134 mmol/L (136-145); Total Bilirubin 0.8 mg/dL (0.15-1.2); Total Protein 6.4 g/dL (6.6-8.7)
[2020-11-04 07:45] LABS: Ferritin 2378 ng/mL (30-400)
[2020-11-04 07:46] LABS: Anion Gap 20.1 (5-19)
[2020-11-04 07:47] LABS: Aspartate Amino Transferase 51 U/L (0-40); Potassium 4.1 mmol/L (3.5-5.1)
[2020-11-04] MEDS: atorvastatin 40 mg Tablet 20 MG PO (08:27)
[2020-11-04] MEDS: aspirin 325 mg Tablet PO (08:27)
[2020-11-04] MEDS: FUROsemide 10 mg/mL SDV 2mL 20 MG IVP (08:27)
[2020-11-04] MEDS: pantoprazole DR 40 mg Tablet PO (08:27)
--- NOTE | 2020-11-04 12:47 | PC.NURSE ---
Medication related Pt stated he takes 3 main medications: Aspirin 325 mg (full dose), Metoprolol 12.5 mg twice a day and 5 mg of rosuvastatin. Pt stated he thinks taking the full dose of Metoprolol made him break out in his face but he cut down his metoprolol 12.5 mg twice a day. Dr. Rubio notified.
--- NOTE | 2020-11-04 13:03 | P.PN_ITS ---
Subjective Subjective: Interval history: 84-year-old male with a past medical history significant for hypertension, hyperlipidemia, Coronary artery disease with history bypass in 2013, and chronic atrial fibrillationHis presented to the hospital with respiratory distress. Patient was initially seen for this on 10/26/2020 during which time patient was noting a fever of 102.5.He was sent to ER for evaluation where patient refused COVID-19 testing. He was discharged from ER with doxycycline and Decadron.On follow-up outpatient visit patient was noted to have oxygen saturation of 73% on room air which had increased 84% on 2 L. Patient was transferred to ER where he was placed on high flow NC. Laboratory workup on arrival showed a WBC of 9.3, hemoglobin 12.8, hematocrit of 38.5 and a platelet count of 196. D-dimer of 0.93. Arterial blood gases showed a pH of 7.51, pCO2 of 32.3, PO2 Of 58 on high-flow with 51% FiO2 peer it sodium 135, potassium 3.7, chloride 94, bicarb 28, BUN 26 and creatinine 0.7. Lactic acid of 1.4. AST was elevated at 77, ALT of 89. Delta troponin T was 1.72, 4.57. Procalcitonin was 0.27. CRP of 34.1. Patient consented to COVID19 testing which showed rapid antigen to be positive. PCR was also ordered however this was pending. Imaging studies Included chest x-ray which showed bilateral patchy opacities consistent with pneumonia.Patient was started on Remdesivir for 5 day protocol. Dexamethasone 6 mg IV daily. Of note patient was also noted to have atrial fibrillation with rapid ventricular response. He was given cardizem 10 mg IV x1 and drip was ordered however not initiated. Clarified home meds. Patient is on metoprolol 12.5 mg PO BID. Also noted hx of difficult swallowing for which he was seen at [facility]. In review of [facility] it appears patient had post nasal drip for which he was started on zyrtec and omeprazole. 11/04/2020 Stable on HFNC overnight Afib with rate in low 100s No chest pain or dyspnea. No nausea or vomiting. Medications: Reviewed: Yes Vitals/I&O/Wt Last Vital Signs Temp 98.9 F 11/04/20 04:07 Pulse 96 11/04/20 12:36 Resp 24 H 11/04/20 12:36 BP 146/68 11/04/20 12:36 Pulse Ox 91 11/04/20 10:19 11/03/20 11/04/20 11/04/20 22:59 06:59 14:59 Intake Total 540 / 540 Output Total 575 / 575 250 / 825 1330 / 1330 Balance -575 / -515 -250 / -765 -790 / -790 Weight last 48 hrs Weight 63.503 kg Physical Exam Narrative: EXAM NARRATIVE: General- ill-appearing with mild respiratory distress on high-flow HEENT- grossly unremarkable CVS-irregularly irregular Chest- mildly labored respiration, on high-flow nasal cannula Abdomen-nondistended Extremities-no edema Data : 11/04/20 05:10 11/04/20 05:10 A&P Assessment and plan (1) Acute hypoxemic respiratory failure due to COVID-19: Status: Acute (2) Atrial fibrillation with RVR: Status: Acute (3) Coronary artery abnormality: Status: Acute Additional A&P Information Acute hypoxemic respiratory failure due to COVID-19 pneumonia On arrival RR 30, Pa02 56, o2 saturation 78% on RA Continue Remdesivir - Last dose on 11/07/20 Decadron 6 mg daily x 10 days D2/10 Suspected component of fluid overload - Lasix 20 mg IV BID - net neg 1.5L since admit Continue HFNC - Fio2 51% 35L - Wean as tolerated Procal negative - Monitor off abx Ferritin 2378, D-dimer 0.94, CRP 34.1 -> 127.1 Procal 0.49 Actemra 510 IV x 1 ordered today ABG/Chest xray PRN Atrial Fibrillation with RVR Metoprolol 12.5 mg PO BID On Asa 325mg PO daily for CVA prevention - Likely would need OAC Will d/w pt risk vs Benefit Coronary artery disease hx of CABG Aspirin 325 mg PO daily Statin Telemetry Troponin trend not consistent with acute ischemia ECHO ordered Elevated LFTs AST 77-> 51 ALT 89-> 58 CMP in am Hx of Post-nasal drip Allergic rhinitis Zyrtec 10 mg PO daily Possible dysphagia ST eval Aspiration precautions Benign prostatic hyperplasia Flomax 0.4 mg PO daily GI ppx Protonix 40 mg PO daily DVT ppx Lovenox 40 mg SQ daily Attestations Medical Necessity Statement*: Require further hospitalization for management of COVID-19 pneumonia requiring high-flow nasal cannula Time Spent in Patient Care: Greater than 35 minutes (>than 50% of time spent in counselling and/or direct pt care on unit) . Coding Level of Care Code Acute Retail Specialist for [facility] Fwd Diagnoses Acute hypoxemic respiratory failure due to COVID-19 U07.1; J96.01 Atrial fibrillation with RVR I48.91 Coronary artery abnormality Q24.5
[2020-11-04] MEDS: acetaminophen 325 mg Tablet 650 MG PO (14:09)
--- NOTE | 2020-11-04 14:13 | ECG_ITS ---
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
[2020-11-04] MEDS: metoprolol tartrate 25 mg Tablet 12.5 MG PO ×2 (14:15→21:53)
--- NOTE | 2020-11-04 14:25 | PC.NURSE ---
Afib w/rvr Pt noted to be standing up and using the urinal, pt HR ranges between 130s to 200s. SpO2-fluctuates from 85 to 91% on Heated HF. Pt is alert, oriented, awake. Assisted pt back in bed. Pt started to shake and anxious.Temp axillary is 100.9. Wash cloth applied to forehead. EKG taken shows afib w/rvr and freq. PVC's, oral Tylenol and oral metoprolol given. Cardizem drip started per protocol. Notified. Orders received. 1500 pm-98.4 orally. Will keep monitoring.
--- NOTE | 2020-11-04 15:04 | CTR_ITS ---
PROCEDURE INFORMATION: Exam: CTA Chest With Contrast Exam date and time: 11/04/2020 3:04 PM Age: 85 years old Clinical indication: Shortness of breath; Prior surgery; Surgery date: 6+ months; Surgery type: Cabg; Patient HX: Covid+ w SOB; Additional info: Respiratory failure TECHNIQUE: Imaging protocol: Computed tomographic angiography of the chest with contrast. 3D rendering (Not supervised by radiologist): MIP and/or 3D reconstructed images were created by the technologist. Radiation optimization: All CT scans at this facility use at least one of these dose optimization techniques: automated exposure control; mA and/or kV adjustment per patient size (includes targeted exams where dose is matched to clinical indication); or iterative reconstruction. Contrast material: OMNI 350; Contrast volume: 59 ml; Contrast route: INTRAVENOUS (IV); COMPARISON: CR XR chest 1V portable [id number] 11/03/2020 11:11 AM RADIATION DOSE METRICS: Total DLP (mGy-cm): 525.07 FINDINGS: Pulmonary arteries: Normal. No pulmonary emboli. Aorta: Unremarkable. No aortic aneurysm. No aortic dissection. Lungs: Multifocal bilateral pulmonary infiltrates. Pleural spaces: Small right pleural effusion. Heart: Multivessel atherosclerotic disease which involves the coronary arteries. Cardiomegaly. There is reflux of contrast into the hepatic veins consistent with right heart strain. Lymph nodes: There are calcified mediastinal and perihilar lymph nodes consistent with prior granulomatous exposure. Bones/joints: Unremarkable. No acute fracture. Soft tissues: Unremarkable. CT/CT angio chest PE protcl [id number] IMPRESSION: 1. Bilateral pneumonia.Imaging features can be seen with COVID-19 pneumonia, though are nonspecific and can occur with a variety of infectious and noninfectious processes. (Reference: Miki) 2. Cardiomegaly. In combination with a small right pleural effusion findings are consistent with congestive heart failure. There is reflux of contrast into the hepatic veins consistent with right heart strain. REFERENCES: Miki Javier, et al., Radiological Society of [place] Expert Consensus Statement on Reporting Chest CT Findings Related to COVID-19. Endorsed by the Society of Thoracic Radiology, the [place] [employer], and RSNA. Published May 26, 2019. Radiation Dose CTDIVOL = (mGy): DLP = 525.07 (mGy-cm)
[2020-11-04] MEDS: piperacillin-tazobactam 3.375 GM in sodium chloride 0.9% (plus) 50 ML IV ×2 (15:07→21:54)
--- NOTE | 2020-11-04 15:20 | PC.NURSE ---
family updated on patients conditions
[2020-11-04] MEDS: metoprolol tartrate 1 mg/1 mL SDV 5 mL 2.5 MG IVP (15:42)
[2020-11-04 17:21] LABS: Quest SARS-CoV-2 RNA DETECTED (NOT DETECTED)
[2020-11-04] MEDS: dexamethasone 10 mg/mL INJ 6 MG IVP (18:11)
[2020-11-04] MEDS: enoxaparin 60 mg/0.6 mL Syringe SUBCUT (18:11)
--- NOTE | 2020-11-04 18:46 | PM.CONSULT ---
Providers/Reason For Consult Consulting Physician/Specialty*: Cardiology Reason for Consult*: Atrial fibrillation with rapid ventricular response Attending Physician: Regina Rubio Primary Care Provider: KILO Padilla History of Present Illness History of Present Illness Vel Worthington is a 85 year old male past medical history significant for coronary artery disease, chronic atrial fibrillation hypertension hyperlipidemia was admitted with COVID-19 pneumonia respiratory failure and noted to have atrial fibrillation with rapid ventricle response. It is the reason we have been asked to assist in his care. Please note that I have not personally seen the patient, history physical examination and labs information as per medicine colleagues. Patient was started on Cardizem drip and added metoprolol. Currently denies chest pain troponin remains within acceptable limit of normal. Review of Systems General: Reports: 10 or more systems reviewed and unremarkable except in HPI and below Const: Reports: fever(s), chills and body aches Eyes: Reports: photophobia ENMT: Reports: nasal congestion Card: Denies: chest pain, edema, dyspnea on exertion or orthopnea Resp: Reports: dyspnea and productive cough GI: Reports: diarrhea : Denies: flank pain, dysuria, urinary frequency or urinary urgency Skin/Breast: Denies: rash or pruritus Neuro: Reports: headache(s) Meds/Allergies Home Medications and Allergies Home Medications Medication Instructions Recorded Confirmed Last Taken Type aspirin 325 mg tablet 325 mg PO DAILY 06/20/20 11/03/20 11/02/20 History metoprolol tartrate 25 mg tablet 12.5 mg PO BID #90 tab 10/03/20 11/03/20 11/02/20 Rx miscellaneous medical supply #1 ea 10/27/20 11/03/20 Unknown Rx rosuvastatin 5 mg PO DAILY 11/03/20 11/03/20 11/02/20 History Allergies Allergy/AdvReac Type Severity Reaction Status Date / Time No Known Allergies Allergy Verified 11/04/20 14:57 Current Medications Current Medications Generic Name Dose Route Start Last Admin Trade Name Freq PRN Reason Stop Dose Admin Acetaminophen 650 mg 11/03/20 17:08 11/04/20 14:09 Acetaminophen 325 Mg Tablet PO 650 mg Q6H PRN Administration Mild/Mod Pain Or Temp >/= 101 Aspirin 325 mg 11/04/20 09:00 11/04/20 08:27 Aspirin 325 Mg Tablet PO 325 mg DAILY EMMANUEL Administration Atorvastatin Calcium 20 mg 11/04/20 09:00 11/04/20 08:27 Atorvastatin 40 Mg Tablet PO 20 mg DAILY EMMANUEL Administration Dexamethasone 6 mg 11/04/20 19:00 11/04/20 18:11 Dexamethasone 10 Mg/Ml Inj IVP 6 mg Q24H EMMANUEL Administration Enoxaparin Sodium 60 mg 11/04/20 18:00 11/04/20 18:11 Enoxaparin 60 Mg/0.6 Ml Syringe SUBCUT 60 mg BID EMMANUEL Administration Furosemide 20 mg 11/03/20 21:45 11/04/20 08:27 Furosemide 10 Mg/Ml Sdv 2ml IVP 20 mg Q12H EMMANUEL Administration Remdesivir 100 mg/ Sodium 80 mls @ 100 mls/hr 11/04/20 06:00 11/04/20 08:19 Chloride IV 11/07/20 06:47 Infused Q24H EMMANUEL Infusion Diltiazem HCl 125 mg/ Sodium 125 mls @ 0 mls/hr 11/03/20 18:15 11/04/20 14:11 Chloride IV 10 mg/hr .Q0M EMMANUEL 10 mls/hr Titration Protocol Per Protocol Piperacillin Sod/Tazobactam 50 mls @ 12.5 mls/hr 11/04/20 15:00 11/04/20 15:07 Sod 3.375 gm/ Sodium Chloride IV 12.5 mls/hr Q8H EMMANUEL Administration Protocol Metoprolol Tartrate 12.5 mg 11/04/20 13:33 11/04/20 14:15 Metoprolol Tartrate 25 Mg Tablet PO 12.5 mg BID@0900,2100 EMMANUEL Administration Pantoprazole Sodium 40 mg 11/04/20 09:00 11/04/20 08:[address] 40 Mg Tablet PO 40 mg DAILY EMMANUEL Administration PFSH Acute PFSH: Medical History ASHD (arteriosclerotic heart disease) Had CABG July of [address] Valadez.HAD THREEE VESSEL CABG Atrial fibrillation Hyperlipidemia Hypertension Shortness of Breath Upper respiratory infection Surgical History History of cataract removal with insertion of prosthetic lens Hx of CABG Family History Brother CAD (coronary artery disease) Family/Other Chronic kidney disease (CKD) Dementia Denies family history of Diabetes Clotting disorder Suicide Anesthesia complication Bleeding disorder Lung disease Cancer Stroke Social History Smoking and tobacco status: never smoked Alcohol intake: never Dietary Habits: Current diet type/program: regular Vitals/I&O/Wt Last Vital Signs Temp 98.4 F 11/04/20 17:31 Pulse 97 11/04/20 17:31 Resp 25 H 11/04/20 17:31 BP 146/68 11/04/20 12:36 Pulse Ox 92 11/04/20 17:31 11/04/20 11/04/20 11/04/20 06:59 14:59 22:59 Intake Total 540.333 / 540.333 118 / 658.333 Output Total 250 / 825 1330 / 1330 Balance -250 / -765 -789.667 / -789.667 118 / -671.667 Weight last 48 hrs Weight 140 lb Physical Exam Narrative: EXAM NARRATIVE: Physical examination not performed by me please review full exam by medicine colleagues Data Micro: Micro: Microbiology 11/04/20 14:59 Blood Culture - Pr eliminary Blood SPECIMEN [facility] JORDAN 11/04/20 14:50 Blood Culture - Pr eliminary Blood SPECIMEN [facility] JORDAN A&P Assessment and plan (1) Atrial fibrillation with RVR: I agree with Dr. Hunt's addition of combination Cardizem drip along with metoprolol we can optimize metoprolol if needed digoxin can be added provided renal function remained intact. Once lungs saturation will improve atrial fibrillation will also improve over period of time. At this point no need to control his heart rate tightly it would be okay with patient heart rate runs from 90-110 at the baseline. Status: Acute (2) Coronary artery abnormality: Appear to be stable. Continue current meds Status: Acute (3) Hypertension: Appear to be stable. Continue to monitor Status: Acute Qualifiers: Hypertension type: essential hypertension Qualified Code(s): I10 - Essential (primary) hypertension Consult Attestations Medical Necessity Statement: As per medicine Coding Level of Care Code New Pt Acute Housing Grant Analyst for g Fwd Patient Type New History Detailed Exam Detailed Medical Decision Making Moderate Complexity Diagnoses Atrial fibrillation with RVR I48.91 Coronary artery abnormality Q24.5 Hypertension I10 Hypertension type: essential hypertension
--- NOTE | 2020-11-04 19:20 | PC.NURSE ---
Cardizem drip off per Dr. order Notified doctor Joanne regarding pt's HR maintaining between 70s to 90s. BP is soft systolic in low 90s/60s. Received telephone order to turn off cardizem drip.
--- NOTE | 2020-11-04 19:40 | PC.NURSE ---
call placed to Dr gray to report patients blood pressure and HR at this time instructions to hold cardizem obtain Ekg and cardiology will see patient
--- NOTE | 2020-11-04 19:41 | ECG_ITS ---
[facility] Test Date: 2020-11-04 Pat Name: Vel Worthington Department: Room: 107 Gender: Male Strategy Consultant: : 1935 Requested By: Regina Rubio Order Number: [id number] Reading MD: CARLOS ROWLAND Measurements Intervals [place] Rate: 78 P: [place]: QRS: -4 QRSD: 94 T: 113 QT: 470 QTc: 535 Interpretive Statements ATRIAL FIBRILLATION WITH ABERRANT CONDUCTION OR VENTRICULAR PREMATURE COMPLEXES ST DEVIATION AND MODERATE T-WAVE ABNORMALITY, CONSIDER ANTEROLATERAL ISCHEMIA [-0.1+ mV T-WAVE IN V3-V6] Compared to ECG 11/04/2020 13:59:22 Ventricular premature complex(es) now present Aberrant conduction of supraventricular beat(s) now present Possible ischemia now present T-wave abnormality still present Electronically Signed On 11-04-2020 20:13:22 CDT by CARLOS ROWLAND [id number]
--- NOTE | 2020-11-04 20:10 | PC.NURSE ---
Shift Note Frequent safety and comfort rounds continue. Orders and/or nursing care completed as indicated. Patient monitored for response to intervention and treatment(s). Education provided includes cardizem drip titration per protocol for pt's afib w.rvr HR fluctuates from 130 to 200s, blood cultures and initiation of IV antibiotic and Lovenox SQ, speech therapist consultation due to risk for aspiration. Patient and/or customer operations representative verbalizes understanding. Will continue to monitor in regards to response of pt pt from cardizem drip 1900 pm- Pt stated he feels better with his HR maintaining in between 70s to 90s, SpO2-93% on HHF. BP systolic is soft. 1920 pm Cardizem drip down to 10 mg.
--- NOTE | 2020-11-04 21:37 | PC.NURSE ---
patient to CT at this time
[2020-11-04] MEDS: iohexol 350 mg/mL 100 mL Btl IV (21:38)
--- NOTE | 2020-11-04 22:31 | PC.NURSE ---
patient back from CT, patient tolerated activity well. patient in stable condition at this time
--- NOTE | 2020-11-04 23:52 | PC.NURSE ---
titrated patient's o2 up at 2305 to 40L/80% per RT for o2 sat running in mid 80s, o2 sat have improved to 97% currently on new settings
[2020-11-05] VITALS (15 sets, daily range): BP systolic 91–118; BP diastolic 56–71; PULSE 63–107; RESP 16–25; TEMP 36.3–36.8; O2SAT 86–97
--- NOTE | 2020-11-05 02:08 | PC.NURSE ---
RT titrated patients o2 dowm to 40L / 70%
[2020-11-05] MEDS: remdesivir 100 MG in sodium chloride 0.9% (100 ml) 80 ML IV (05:12)
--- NOTE | 2020-11-05 05:30 | PC.NURSE ---
patient has remained stable this shift, have titrated high flow to 40L/70%, pressures remain soft but stable, patient is alert and responds appropriately.
[2020-11-05] MEDS: piperacillin-tazobactam 3.375 GM in sodium chloride 0.9% (plus) 50 ML IV ×3 (06:25→22:09)
[2020-11-05 07:01] LABS: Basophils % 0.2 %; Hematocrit 37.7 % (42.0-52.0); Hemoglobin 12.5 g/dL (11.7-16.6); Lymphocytes # 0.7 10^3/uL (0.8-4.8); Lymphocytes % 11.3 %; Mean Corpuscular HGB Conc 33.2 g/dL (30.0-36.0); Mean Corpuscular Hemoglobin 31.8 pg (28.0-34.0); Mean Corpuscular Volume 95.9 fl (80-94); Mean Platelet Volume 12.2 fL (7.4-10.4); Monocytes # 0.4 10^3/uL (0.2-0.9); Monocytes % 7.1 %; Neutrophils # 4.64 10^3/uL (1.8-7.7); Neutrophils % 80.7 %; Nucleated Red Blood Cells % 0 %; Platelet Count 192 10^3/cmm (130-400); Red Blood Count 3.93 10^6/uL (4.1-5.3); Red Cell Distribution Width 13.6 % (12.1-15.1); White Blood Count 5.8 10^3/uL (4.0-10.0)
[2020-11-05 07:41] LABS: Alanine Aminotransferase 42 U/L (0-41); Albumin Level 2.6 g/dL (3.5-5.2); Alkaline Phosphatase 58 IU/L (40-130); Aspartate Amino Transferase 36 U/L (0-40); Blood Urea Nitrogen 25 mg/dL (8-23); Carbon Dioxide 26 mmol/L (22-29); Chloride 99 mmol/L (98-107); Glucose 144 mg/dL (65-115); Osmolality Calculated 291 mOsm/kg (285-295); Sodium 137 mmol/L (136-145); Total Bilirubin 0.8 mg/dL (0.15-1.2); Total Protein 5.6 g/dL (6.6-8.7)
[2020-11-05 07:45] LABS: Procalcitonin 1.56 ng/mL (0-0.5)
[2020-11-05 08:00] LABS: Anion Gap 15.9 (5-19)
[2020-11-05 08:01] LABS: Potassium 3.9 mmol/L (3.5-5.1)
[2020-11-05] MEDS: enoxaparin 60 mg/0.6 mL Syringe SUBCUT ×2 (08:13→18:17)
[2020-11-05] MEDS: cetirizine 10 mg Tablet PO (08:14)
[2020-11-05] MEDS: pantoprazole DR 40 mg Tablet PO (08:14)
[2020-11-05] MEDS: aspirin 325 mg Tablet PO (08:14)
[2020-11-05] MEDS: atorvastatin 40 mg Tablet 20 MG PO (08:14)
[2020-11-05] MEDS: metoprolol tartrate 25 mg Tablet 12.5 MG PO ×2 (10:18→20:43)
[2020-11-05] MEDS: tamsulosin 0.4 mg Capsule PO (10:19)
--- NOTE | 2020-11-05 11:29 | PC.NURSE ---
Family update Talked to Luis via phone to update pt's nursing plan of care and interventions, pt's cardiology consultation and new meds ordered. Family stated that pt has been having trouble with drinking and eating since his open heart surgery or couple yrs now.
--- NOTE | 2020-11-05 11:41 | P.PN_ITS ---
Subjective Subjective: Interval history: Patient is in sinus rhythm on telemetry, Cardizem drip was off in the night Medications: Reviewed: Yes Vitals/I&O/Wt Last Vital Signs Temp 97.5 F L 11/05/20 08:00 Pulse 88 11/05/20 09:55 Resp 18 11/05/20 09:55 BP 112/71 11/05/20 08:00 Pulse Ox 93 11/05/20 09:55 11/04/20 11/05/20 11/05/20 22:59 06:59 14:59 Intake Total 246.667 / 790.167 50 / 840.167 370 / 370 Output Total 300 / 1630 Balance 246.667 / -539.833 -250 / -789.833 370 / 370 Physical Exam Narrative: EXAM NARRATIVE: Physical examination not performed by me please review full exam by medicine colleagues Data : 11/05/20 05:56 11/05/20 05:56 Micro: Microbiology 11/04/20 14:59 Blood Culture - Preliminary Blood SPECIMEN COLLECTED 11/04/20 14:50 Blood Culture - Preliminary Blood SPECIMEN COLLECTED A&P Assessment and plan (1) Atrial fibrillation with RVR: I will 120 mg of Cardizem. along with 12.5 mg twice daily of metoprolol. Continue anticoagulation, appeared to me that patient may be dry we will recommend holding Lasix if possible Status: Acute (2) Coronary artery abnormality: Appear to be stable. Continue current meds Status: Acute (3) Hypertension: Appear to be stable. Continue to monitor Status: Acute Qualifiers: Hypertension type: essential hypertension Qualified Code(s): I10 - Essential (primary) hypertension Attestations Medical Necessity Statement*: Require continuation hospitalization for above defined care. 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
--- NOTE | 2020-11-05 13:13 | USCV_ITS ---
Vel Worthington Age: 85 Gender: M : 1935 Exam Date: 11/05/2020 06:20 Ordering Phys: Regina Rubio MD Technologist: Maya Iraheta [place] [facility] [place]: afib, elevated trop BP: 99 / 63 HR: 89 Rhythm: Atrial fibrillation Technical Quality: Fair MEASUREMENTS (Male / Female) Normal Values 2D ECHO LV Diastolic Diameter PLAX 4.0 cm 4.2 - 5.9 / 3.9 - 5.3 cm LV Systolic Diameter PLAX 2.7 cm LV Chamber Size 3.7 cm IVS Diastolic Thickness 1.3 cm 0.6 - 1.0 / 0.6 - 0.9 cm IVS Systolic Thickness 1.6 cm LVPW Diastolic Thickness 0.9 cm 0.6 - 1.0 / 0.6 - 0.9 cm LVPW Systolic Thickness 1.9 cm RV Chamber Size 2.5 cm LVOT Diameter 2.1 cm LV Ejection Fraction 2D Teich 62.6 % LA Diameter 3.7 cm LA Width 3.0 cm LA Height 5.3 cm RA Width 2.7 cm RA Height 5.6 cm Aorta at Sinotubular Diameter 2.7 cm M-MODE LV Diastolic Diameter MM 4.6 cm 4.2 - 5.9 / 3.9 - 5.3 cm LV Systolic Diameter MM 3.1 cm LV Ejection Fraction MM Teich 60.2 % IVS Diastolic Thickness MM 1.1 cm 0.6 - 1.0 / 0.6 - 0.9 cm IVS Systolic Thickness MM 1.5 cm LVPW Diastolic Thickness MM 1.3 cm 0.6 - 1.0 / 0.6 - 0.9 cm LVPW Systolic Thickness MM 1.9 cm RV Diastolic Diameter MM 2.2 cm Aortic Annulus Diameter 3.8 cm LA Ao Ratio MM 1.2 MV E Point Septal Separation 0.4 cm DOPPLER AV Peak Velocity 140.0 cm/s LVOT Peak Velocity 80.0 cm/s AV Area Cont Eq vti 2.0 cm squared AV Area Cont Eq pk 1.9 cm squared MV Area PHT 4.9 cm squared MV E' Velocity 61.0 cm/s TR Peak Velocity 183.3 cm/s TR Peak Gradient 13.4 mmHg TV Peak E Velocity 62.0 cm/s Right Atrial Pressure 3.0 mmHg Pulmonary Artery Systolic Pressu 16.4 mmHg PV Peak Velocity 69.0 cm/s RV Acceleration Time 0.1 s RV Ejection Time 0.3 s RV AcT/ET 0.3 FINDINGS Left Ventricle Normal left ventricular cavity size. Moderately decreased left ventricular systolic function. Left ventricular ejection fraction is estimated at 40 %. Flattened septum in diastole consistent with right ventricle volume overload. Right Ventricle Moderately increased right ventricular size. RVSP could not be calculated due to incomplete tricuspid regurgitation velocity profile. Right Atrium Moderately increased right atrial size. Left Atrium Moderately increased left atrial size. Mitral Valve Mildly thickened mitral valve. No mitral valve stenosis. Moderate mitral valve regurgitation. Aortic Valve Mild aortic valve calcification. No aortic valve stenosis. Mild aortic valve regurgitation. Tricuspid Valve Moderate tricuspid valve regurgitation. Pulmonic Valve Structurally normal pulmonic valve without significant stenosis. There is no pulmonic regurgitation. Pericardium Normal pericardium without effusion. Aorta Normal ascending aorta dimension. CONCLUSIONS 1-Normal left ventricular cavity size. Moderately decreased left ventricular systolic function. Left ventricular ejection fraction is estimated at 40 %. Flattened septum in diastole consistent with right ventricle volume overload. 2-Moderately increased right atrial size. 3-Moderately increased right ventricular size. RVSP could not be calculated due to incomplete tricuspid regurgitation velocity profile. 4-Mildly thickened mitral valve. No mitral valve stenosis. Moderate mitral valve regurgitation. 5-Moderate tricuspid valve regurgitation. 6-Mild aortic valve calcification. No aortic valve stenosis. Mild aortic valve regurgitation. 7-There is no pericardial effusion. 8-Right atrial pressure is around 15 mm of mercury. 9-Due to limited nature of prior study cannot compare with the recent one. Julien Romero MD (Electronically Signed) Final Date: 05 November 2020 12:58 S
--- NOTE | 2020-11-05 15:59 | PC.NURSE ---
Pt stated i can give information to Nickie Roberts [phone]. Pt release an okay to talked to her granddaughter nickie. talked to her via phone.
--- NOTE | 2020-11-05 17:50 | PC.RESP ---
RT Shift Note Frequent safety and respiratory rounds continue. Orders completed as indicated. Patient monitored pre and post treatments throughout shift. Patient did tolerate treatments appropriately. Condition did not change. Patient and/or outside industrial sales representative educated on respiratory treatment and medications. Patient and/or outside industrial sales representative verbalized understanding. Will continue to monitor patient progress.
[2020-11-05] MEDS: dexamethasone 10 mg/mL INJ 6 MG IVP (18:17)
[2020-11-05] MEDS: lanolin oint 7 gm 1 APPLIC TOPICAL (18:32)
--- NOTE | 2020-11-05 19:02 | PM.PN ---
Subjective Subjective: Interval history: 84-year-old male with a past medical history significant for hypertension, hyperlipidemia, Coronary artery disease with history bypass in 2013, and chronic atrial fibrillationHis presented to the hospital with respiratory distress. Patient was initially seen for this on 10/26/2020 during which time patient was noting a fever of 102.5.He was sent to ER for evaluation where patient refused COVID-19 testing. He was discharged from ER with doxycycline and Decadron.On follow-up outpatient visit patient was noted to have oxygen saturation of 73% on room air which had increased 84% on 2 L. Patient was transferred to ER where he was placed on high flow NC. Laboratory workup on arrival showed a WBC of 9.3, hemoglobin 12.8, hematocrit of 38.5 and a platelet count of 196. D-dimer of 0.93. Arterial blood gases showed a pH of 7.51, pCO2 of 32.3, PO2 Of 58 on high-flow with 51% FiO2 peer it sodium 135, potassium 3.7, chloride 94, bicarb 28, BUN 26 and creatinine 0.7. Lactic acid of 1.4. AST was elevated at 77, ALT of 89. Delta troponin T was 1.72, 4.57. Procalcitonin was 0.27. CRP of 34.1. Patient consented to COVID19 testing which showed rapid antigen to be positive. PCR was also ordered however this was pending. Imaging studies Included chest x-ray which showed bilateral patchy opacities consistent with pneumonia.Patient was started on Remdesivir for 5 day protocol. Dexamethasone 6 mg IV daily. Of note patient was also noted to have atrial fibrillation with rapid ventricular response. He was given cardizem 10 mg IV x1 and drip was ordered however not initiated. Clarified home meds. Patient is on metoprolol 12.5 mg PO BID. Also noted hx of difficult swallowing for which he was seen at [facility]. In review of [facility] it appears patient had post nasal drip for which he was started on zyrtec and omeprazole. 11/04/2020 Stable on HFNC overnight Afib with rate in low 100s No chest pain or dyspnea. No nausea or vomiting. 11/05/2020 Hypotensive in am Metoprolol Held On HFNC Vitals/I&O/Wt Last Vital Signs Temp 98 F 11/05/20 19:41 Pulse 87 11/05/20 21:21 Resp 18 11/05/20 21:03 BP 118/64 11/05/20 19:41 Pulse Ox 92 11/05/20 21:03 11/05/20 11/05/20 11/05/20 06:59 14:59 22:59 Intake Total 50 / 840.167 850 / 850 530 / 1380 Output Total 300 / 1630 350 / 350 Balance -250 / -789.833 850 / 850 180 / 1030 Physical Exam Narrative: EXAM NARRATIVE: General- high-flow HEENT- grossly unremarkable CVS-irregularly irregular Chest- mildly labored respiration, on high-flow nasal cannula Abdomen-nondistended Extremities-no edema Data : 11/05/20 05:56 11/05/20 05:56 Micro: Microbiology 11/04/20 14:59 Blood Culture - Preliminary Blood NEGATIVE TO DATE 11/04/20 14:50 Blood Culture - Preliminary Blood NEGATIVE TO DATE A&P Assessment and plan (1) Acute hypoxemic respiratory failure due to COVID-19: Status: Acute (2) Atrial fibrillation with RVR: Status: Acute (3) Hypertension: Status: Acute Qualifiers: Hypertension type: essential hypertension Qualified Code(s): I10 - Essential (primary) hypertension (4) Hyperlipidemia: Status: Acute Qualifiers: Hyperlipidemia type: mixed hyperlipidemia Qualified Code(s): E78.2 - Mixed hyperlipidemia Additional A&P Information Acute hypoxemic respiratory failure due to COVID-19 pneumonia On arrival RR 30, Pa02 56, o2 saturation 78% on RA Continue Remdesivir - Last dose on 11/07/20 Decadron 6 mg daily x 10 days D3/10 Suspected component of fluid overload - Lasix now on hold. Net 0.5L balance Continue HFNC - Fio2 51% 35L - Wean as tolerated Ferritin 2378, D-dimer 0.94, CRP 34.1 -> 127.1 Procal 0.49 Actemra 510 IV x 1 ordered - will need to d/w Dr. Broussard ABG/Chest xray PRN Consider pulmonary consult when available Possible superimposed bacterial infection - noted to have fever Procal increased to 1.56 -> Empirically started on Zosyn 3.375g IV Q8hr Follow up on cultures Atrial Fibrillation with RVR Metoprolol 12.5 mg PO BID - Stopped due to hypotension My consider Digoxin if RVR - Currently normal rate On Asa 81mg PO daily for CVA prevention - Likely would need OAC Started on Lovenox 60 mg SQ BID - no prior bleeding history Coronary artery disease hx of CABG Aspirin 325 mg PO daily - changed to 81 mg Statin Telemetry Troponin trend not consistent with acute ischemia ECHO ordered Elevated LFTs AST 77-> 51 - 36 ALT 89-> 58 - 42 CMP in am Hx of Post-nasal drip Allergic rhinitis Zyrtec 10 mg PO daily Possible dysphagia ST eval. CLD for now Aspiration precautions Benign prostatic hyperplasia Flomax 0.4 mg PO daily GI ppx Protonix 40 mg PO daily DVT ppx Lovenox 60 mg SQ Q12 Attestations Medical Necessity Statement*: Will require further hospitalization for management of COVID-19 pneumonia, atrial fibrillation with rapid ventricular response. Time Spent in Patient Care: Greater than 35 minutes (>than 50% of time spent in counselling and/or direct pt care on unit). Coding Level of Care Code Acute Analytical Strategist for [facility] [facility] Diagnoses Acute hypoxemic respiratory failure due to COVID-19 U07.1; J96.01 Atrial fibrillation with RVR I48.91 Hypertension I10 Hypertension type: essential hypertension Hyperlipidemia E78.2 Hyperlipidemia type: mixed hyperlipidemia
--- NOTE | 2020-11-05 19:59 | PC.NURSE ---
Shift Note Frequent safety and comfort rounds continue. Orders and/or nursing care completed as indicated. Patient monitored for response to intervention and treatment(s). Education provided includes turning, deep breathing and coughing, increase mobility and advance diet per ST. Patient and/or development representative. Will continue to monitor.
[2020-11-06] VITALS (15 sets, daily range): BP systolic 92–132; BP diastolic 52–74; PULSE 79–107; RESP 16–27; TEMP 36.8–37.1; O2SAT 88–95
[2020-11-06 05:22] LABS: Hematocrit 37.3 % (42.0-52.0); Hemoglobin 12.4 g/dL (11.7-16.6); Lymphocytes # 0.5 10^3/uL (0.8-4.8); Lymphocytes % 6.9 %; Mean Corpuscular HGB Conc 33.2 g/dL (30.0-36.0); Mean Corpuscular Hemoglobin 31.6 pg (28.0-34.0); Mean Corpuscular Volume 95.2 fl (80-94); Mean Platelet Volume 11.5 fL (7.4-10.4); Monocytes # 0.4 10^3/uL (0.2-0.9); Monocytes % 5.8 %; Neutrophils # 6.44 10^3/uL (1.8-7.7); Neutrophils % 86.6 %; Nucleated Red Blood Cells % 0 %; Platelet Count 236 10^3/cmm (130-400); Red Blood Count 3.92 10^6/uL (4.1-5.3); Red Cell Distribution Width 13.6 % (12.1-15.1); White Blood Count 7.4 10^3/uL (4.0-10.0)
[2020-11-06] MEDS: remdesivir 100 MG in sodium chloride 0.9% (100 ml) 80 ML IV (05:28)
[2020-11-06 05:41] LABS: Alanine Aminotransferase 38 U/L (0-41); Albumin Level 2.7 g/dL (3.5-5.2); Alkaline Phosphatase 58 IU/L (40-130); Anion Gap 14.6 (5-19); Aspartate Amino Transferase 26 U/L (0-40); Blood Urea Nitrogen 26 mg/dL (8-23); C Reactive Protein 91.9 mg/L (0.0-4.9); Carbon Dioxide 26 mmol/L (22-29); Chloride 100 mmol/L (98-107); Globulin 2.4 g/dL (1.3-4.6); Glucose 172 mg/dL (65-115); Magnesium 1.9 mg/dL (1.7-2.3); Osmolality Calculated 293 mOsm/kg (285-295); Potassium 3.6 mmol/L (3.5-5.1); Sodium 137 mmol/L (136-145); Total Bilirubin 0.7 mg/dL (0.15-1.2); Total Protein 5.1 g/dL (6.6-8.7)
[2020-11-06 05:52] LABS: Procalcitonin 1.12 ng/mL (0-0.5)
--- NOTE | 2020-11-06 06:06 | PC.NURSE ---
patient has had a very good night, patient states that he is feeling better this morning. vital signs remained stable through the shift.
[2020-11-06 06:08] LABS: D Dimer 0.42 ug/mIFEU (0-0.59)
[2020-11-06 06:12] LABS: Ferritin 2453 ng/mL (30-400)
[2020-11-06] MEDS: piperacillin-tazobactam 3.375 GM in sodium chloride 0.9% (plus) 50 ML IV ×3 (06:30→22:37)
--- NOTE | 2020-11-06 07:00 | XRR_ITS ---
PROCEDURE INFORMATION: Exam: XR Chest Exam date and time: 11/06/2020 7:00 AM Age: 85 years old Clinical indication: Other: Covid follow up; Additional info: Respiratory failure TECHNIQUE: Imaging protocol: XR of the chest. Views: 1 view. COMPARISON: CR XR chest 1V portable [id number] 11/03/2020 11:11 AM FINDINGS: Tubes, catheters and devices: Surgical clips project over the GE junction region. Lungs: Interval worsening of bilateral airspace opacities. No large pleural effusion or pneumothorax. Pleural spaces: See Lungs finding. Heart/Mediastinum: Stable cardiomediastinal silhouette. Bones/joints: Median sternotomy changes seen. No acute osseous injury identified. XR/XR chest 1V portable [id number] IMPRESSION: Interval worsening of bilateral airspace opacities.
[2020-11-06] MEDS: tamsulosin 0.4 mg Capsule PO (08:17)
[2020-11-06] MEDS: aspirin 81 mg EC Tablet PO (08:17)
[2020-11-06] MEDS: pantoprazole DR 40 mg Tablet PO (08:17)
[2020-11-06] MEDS: atorvastatin 40 mg Tablet 20 MG PO (08:17)
[2020-11-06] MEDS: enoxaparin 60 mg/0.6 mL Syringe SUBCUT ×2 (08:18→17:04)
[2020-11-06] MEDS: azithromycin 250 mg Tablet 500 MG PO (09:33)
[2020-11-06] MEDS: benzonatate 100 mg Capsule PO ×3 (09:33→20:25)
[2020-11-06] MEDS: zinc gluconate 50 mg Tablet PO (09:33)
[2020-11-06] MEDS: metoprolol tartrate 25 mg Tablet 12.5 MG PO (09:33)
[2020-11-06] MEDS: vancomycin 1,000 MG in sodium chloride 0.9% 250 ML 250 MG IV (09:33)
[2020-11-06] MEDS: ipratropium-albuterol 3 mL Neb INHALATION ×3 (09:51→20:56)
--- NOTE | 2020-11-06 10:30 | PC.SOCIAL ---
IMM Update Pg. 2 of IMM updated. Copy provided to nursing staff to give to patient, as unable to reach family at this time. Will discuss with them once able to reach them.
--- NOTE | 2020-11-06 10:30 | PC.NURSE ---
pt refuses zyrtec. pt says it causes him to feel anxious and have issues with his blood pressure
[2020-11-06 11:47] LABS: Iron 69 ug/dL (59-158); Total Iron Binding Capacity 123 mcg/dl; Unsaturated Iron Binding 54 ug/dL (112-347)
[2020-11-06 11:55] LABS: Thyroid Stimulating Hormone 0.25 uIU/mL (0.27-4.20)
--- NOTE | 2020-11-06 15:35 | P.PN_ITS ---
Subjective Subjective: Interval history: Hospitalization, labs reviewed. On examination today patient working with physical therapy. Looks fairly weak. Can currently on 40 L 65% heated high flow saturating 92%. Denies any nausea, vomiting, headache. States he is feeling better today. Discussed in detail for need for him to work with incentive spirometry and flutter valve. Patient verbalized understanding. Also discussed in detail regarding semiprone positioning. Medications: Reviewed: Yes Vitals/I&O/Wt Last Vital Signs Temp 98.7 F 11/06/20 09:06 Pulse 84 11/06/20 14:57 Resp 16 11/06/20 14:57 BP 114/73 11/06/20 13:35 Pulse Ox 94 11/06/20 14:57 11/06/20 11/06/20 11/06/20 06:59 14:59 22:59 Intake Total 130 / 1510 418 / 418 Output Total 225 / 875 300 / 300 Balance -95 / 635 118 / 118 Physical Exam Narrative: EXAM NARRATIVE: General: No acute distress, AO x3, frail, sick appearing HEENT: PERRLA, pupils bilaterally equal and reactive Chest: Bilateral bronchial breath sounds, coarse crackles present bilaterally over the lung blair, occasional rhonchi present all over the lung blair, equal good air entry bilaterally CVS: S1-S2 irregularly irregular, pansystolic murmur present in fourth intercostal space, left parasternal region, no tachycardia, no gallops, no rubs Abdomen: Soft, nontender, no organomegaly, bowel sounds present Neuro: No focal deficits, no facial deformity, AO x3, power 5/5 in all limbs Data : 11/06/20 04:50 11/06/20 04:50 Micro: Microbiology 11/04/20 14:59 Blood Culture - Preliminary Blood NEGATIVE TO DATE 11/04/20 14:50 Blood Culture - Preliminary Blood NEGATIVE TO DATE A&P Assessment and plan (1) Acute hypoxemic respiratory failure due to COVID-19: Status: Acute (2) Atrial fibrillation with RVR: Status: Acute (3) Congestive heart failure: Status: Acute (4) Right-sided heart failure: Status: Acute (5) ASHD (arteriosclerotic heart disease): Status: Acute (6) Hyperlipidemia: Status: Acute Qualifiers: Hyperlipidemia type: mixed hyperlipidemia Qualified Code(s): E78.2 - Mixed hyperlipidemia (7) Hypertension: Status: Acute Qualifiers: Hypertension type: essential hypertension Qualified Code(s): I10 - Essential (primary) hypertension Additional A&P Information Hypoxia secondary to COVID-19 pneumonia: Moderate disease. Oxygen supplementation keeping saturation over 88%. Dexamethasone 6 mg daily. Remdesivir to finish a 5-day course. Vitamin C, zinc. DuoNebs every 6 hours, budesonide twice daily. Pulmonary toilet with incentive spirometry flutter valve. We will monitor inflammatory markers including ferritin, ESR, CRP, D-dimer, fibrinogen. If getting elevated will dose Actemra. Patient was made aware of the same and he has given verbal consent. D-dimer elevated. CTA negative for pulmonary embolism. For now continue with full dose anticoagulation with full dose Lovenox 60 mg twice daily. Will m onitor for anemia or blood loss. Procalcitonin elevated, check sputum culture, urine Legionella, bacterial antigen. Blood cultures so far negative. Continue with Zosyn. For now start patient on vancomycin and azithromycin as patient is requiring high oxygen supplementation. Can discontinue vancomycin if MRSA is negative. Will plan to continue azithromycin to finish a 5-day course. Given hypoxia will try to keep patient as negative as possible. Echocardiogram done earlier in the admission shows an EF of 40% with moderately decreased LV systolic function, consistent with right ventricular volume overload, moderately increased right atrial size, moderately increased right ventricular size, moderate MR, moderate TR. We will try to keep patient as negative as possible. Start on Lasix 40 mg oral daily. Fluid restriction up to 1500 cc. Strict input output charting, daily weights. Atrial Fibrillation with RVR: Blood pressure is better. For now continue with home dose of metoprolol 12.5 mg twice daily. Will uptitrate medication accordingly. On Asa 81mg PO daily for CVA prevention - Likely would need OAC Started on Lovenox 60 mg SQ BID - no prior bleeding history Coronary artery disease hx of CABG Aspirin 325 mg PO daily - changed to 81 mg Statin. Will monitor liver functions. Worsening will stop. Telemetry Troponin trend not consistent with acute ischemia ECHO ordered Elevated LFTs AST 77-> 51 - 36 ALT 89-> 58 - 42 CMP in am Hx of Post-nasal drip Allergic rhinitis Zyrtec 10 mg PO daily Possible dysphagia ST eval. advance diet as per recommendations. Aspiration precautions Benign prostatic hyperplasia Flomax 0.4 mg PO daily GI ppx Protonix 40 mg PO daily DVT ppx Lovenox 60 mg SQ Q12 Attestations Medical Necessity Statement*: Requires further hospitalization for management of severe hypoxia/ARDS secondary COVID-19 pneumonia, atrial fibrillation with rapid ventricular response, congestive heart failure. Time Spent in Patient Care: Greater than 35 minutes (>than 50% of time spent in counselling and/or direct pt care on unit) . Coding Level of Care Code Acute Assurance Engineer for [facility] Diagnoses Acute hypoxemic respiratory failure due to COVID-19 U07.1; J96.01 Atrial fibrillation with RVR I48.91 Congestive heart failure I50.9 Right-sided heart failure I50.810 ASHD (arteriosclerotic heart disease) I25.10 Hyperlipidemia E78.2 Hyperlipidemia type: mixed hyperlipidemia Hypertension I10 Hypertension type: essential hypertension
--- NOTE | 2020-11-06 15:51 | PM.PN ---
Subjective Subjective: Interval history: Patient appeared to be in sinus rhythm. Medications: Reviewed: Yes Vitals/I&O/Wt Last Vital Signs Temp 98.7 F 11/06/20 09:06 Pulse 84 11/06/20 14:57 Resp 16 11/06/20 14:57 BP 114/73 11/06/20 13:35 Pulse Ox 94 11/06/20 14:57 11/06/20 11/06/20 11/06/20 06:59 14:59 22:59 Intake Total 130 / 1510 418 / 418 Output Total 225 / 875 300 / 300 Balance -95 / 635 118 / 118 Physical Exam Narrative: EXAM NARRATIVE: Physical examination not performed by me please review full exam by medicine colleagues Data : 11/06/20 04:50 11/06/20 04:50 Micro: Microbiology 11/06/20 13:20 Bacterial Antigens - Final Urine Kidney 11/04/20 14:59 Blood Culture - Preliminary Blood NEGATIVE TO DATE 11/04/20 14:50 Blood Culture - Preliminary Blood NEGATIVE TO DATE A&P Assessment and plan (1) Atrial fibrillation with RVR: Continue enoxaparin, calcium channel gaurav and beta-gaurav. Status: Acute (2) Coronary artery abnormality: Appear to be stable. 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
--- NOTE | 2020-11-06 16:29 | PC.RESP ---
RT Shift Note Frequent safety and respiratory rounds continue. Orders completed as indicated. Patient monitored pre and post treatments throughout shift. Patient did tolerate treatments appropriately. Condition improved. Patient and/or food service sales representatives educated on respiratory treatment and medications. Patient and/or food service sales representatives verbalized understanding. Will continue to monitor patient progress.
[2020-11-06] MEDS: ascorbic acid 500 mg Tablet PO (17:04)
--- NOTE | 2020-11-06 19:25 | PC.NURSE ---
received call back from doctor Talked to Dr. Romero via phone to start pt on first dose now of diltiazem 120 mg then daily. Verified to Dr. Romero. Updated Dr. Romero on pt's current Heart Rate, Rhythm and BP.
[2020-11-06] MEDS: metoprolol tartrate 25 mg Tablet PO (20:26)
[2020-11-06] MEDS: dexamethasone 10 mg/mL INJ 6 MG IVP (20:27)
[2020-11-06] MEDS: dilTIAZem ER (24HR) 120 mg Capsule PO (20:27)
[2020-11-06] MEDS: budesonide 0.5 mg/2 mL Neb INHALATION (20:56)
[2020-11-07] VITALS (21 sets, daily range): BP systolic 71–127; BP diastolic 49–82; PULSE 71–127; RESP 18–30; TEMP 36.6–36.8; O2SAT 86–100
[2020-11-07] MEDS: ipratropium-albuterol 3 mL Neb INHALATION ×2 (03:42→09:17)
[2020-11-07] MEDS: vancomycin 1,000 MG in sodium chloride 0.9% 250 ML 250 MG IV (04:22)
[2020-11-07 04:53] LABS: Basophils % 0.1 %; Hematocrit 35.5 % (42.0-52.0); Lymphocytes % 8.2 %; Mean Corpuscular HGB Conc 33.8 g/dL (30.0-36.0); Mean Corpuscular Volume 94.7 fl (80-94); Mean Platelet Volume 11.6 fL (7.4-10.4); Monocytes # 1.1 10^3/uL (0.2-0.9); Monocytes % 8.8 %; Neutrophils # 10.07 10^3/uL (1.8-7.7); Neutrophils % 82.3 %; Nucleated Red Blood Cells % 0 %; Platelet Count 234 10^3/cmm (130-400); Red Blood Count 3.75 10^6/uL (4.1-5.3); Red Cell Distribution Width 13.5 % (12.1-15.1); White Blood Count 12.2 10^3/uL (4.0-10.0)
[2020-11-07 05:13] LABS: Alanine Aminotransferase 34 U/L (0-41); Albumin Level 2.6 g/dL (3.5-5.2); Alkaline Phosphatase 55 IU/L (40-130); Anion Gap 12.8 (5-19); Aspartate Amino Transferase 23 U/L (0-40); Blood Urea Nitrogen 29 mg/dL (8-23); Carbon Dioxide 26 mmol/L (22-29); Chloride 101 mmol/L (98-107); Glucose 127 mg/dL (65-115); Osmolality Calculated 289 mOsm/kg (285-295); Potassium 3.8 mmol/L (3.5-5.1); Sodium 136 mmol/L (136-145); Total Bilirubin 0.6 mg/dL (0.15-1.2); Total Protein 5.6 g/dL (6.6-8.7)
[2020-11-07 05:17] LABS: Estmated Average Glucose 120; Hemoglobin A1C 5.8 % (4.0-6.0)
[2020-11-07 05:26] LABS: NT Pro B Type Natriuretic Pept 1191 pg/mL (0-450); Procalcitonin 0.58 ng/mL (0-0.5)
[2020-11-07 05:37] LABS: C Reactive Protein 44.5 mg/L (0.0-4.9); Chol HDL Ratio 2.12 mg/dL (1.0-5.00); Cholesterol 106 mg/dL (0-200); HDL Cholesterol 50 mg/dL (60-100); LDL Cholesterol Calculated 43 mg/dL (50-129); Triglycerides 65 mg/dL (0-150); VLDL Cholestrol Calculation 13 mg/dL (0-30)
[2020-11-07] MEDS: remdesivir 100 MG in sodium chloride 0.9% (100 ml) 80 ML IV (05:47)
--- NOTE | 2020-11-07 06:00 | XRR_ITS ---
PROCEDURE INFORMATION: Exam: XR Chest Exam date and time: 11/07/2020 6:00 AM Age: 85 years old Clinical indication: Condition or disease; Other: Covid TECHNIQUE: Imaging protocol: XR of the chest. Views: 1 view. COMPARISON: CR XR chest 1V portable [id number] 11/06/2020 7:17 AM FINDINGS: Lungs: No change in the patchy interstitial and airspace opacities throughout the right lung and in the lower half of the left lung. Continued relatively prominent lung volumes. Pleural spaces: No interval pneumothorax or large pleural effusion. Small posterior right pleural effusion not excluded. Stable slight pleural thickening along the lateral aspects of each lower lung. Heart/Mediastinum: CABG again evident, possibly accounting for the continued surgical clips over the medial left lung base. Possible borderline cardiomegaly again evident. Vasculature: Aortic elongation still likely. Bones/joints: No apparent change in the bones. Median sternotomy again evident. XR/XR chest 1V portable [id number] IMPRESSION: No significant change in the bilateral lung disease or the rest of the chest. CABG and possible borderline cardiomegaly again evident. Other findings detailed above.
[2020-11-07 06:01] LABS: Erythrocyte Sedimentation Rate 44 mm/hr (0-10)
[2020-11-07 06:37] LABS: D Dimer 0.45 ug/mIFEU (0-0.59)
[2020-11-07] MEDS: piperacillin-tazobactam 3.375 GM in sodium chloride 0.9% (plus) 50 ML IV ×3 (07:30→23:13)
[2020-11-07] MEDS: budesonide 0.5 mg/2 mL Neb INHALATION ×2 (09:17→19:31)
[2020-11-07] MEDS: tamsulosin 0.4 mg Capsule PO (09:25)
[2020-11-07] MEDS: FUROsemide 40 mg Tablet PO (09:25)
[2020-11-07] MEDS: enoxaparin 60 mg/0.6 mL Syringe SUBCUT ×2 (09:25→18:06)
[2020-11-07] MEDS: azithromycin 250 mg Tablet 500 MG PO (09:25)
[2020-11-07] MEDS: dilTIAZem ER (24HR) 120 mg Capsule PO (09:25)
[2020-11-07] MEDS: aspirin 81 mg EC Tablet PO (09:25)
[2020-11-07] MEDS: metoprolol tartrate 25 mg Tablet PO ×2 (09:26→11:32)
[2020-11-07] MEDS: ascorbic acid 500 mg Tablet PO ×2 (09:26→18:07)
[2020-11-07] MEDS: pantoprazole DR 40 mg Tablet PO (09:26)
[2020-11-07] MEDS: zinc gluconate 50 mg Tablet PO (09:26)
[2020-11-07] MEDS: atorvastatin 40 mg Tablet 20 MG PO (09:26)
[2020-11-07] MEDS: cetirizine 10 mg Tablet PO (09:26)
[2020-11-07] MEDS: benzonatate 100 mg Capsule PO ×3 (09:26→20:30)
[2020-11-07 11:32] LABS: Free T4 Free Thyroxine 1.73 ng/dL (0.82-1.77); T3 Free 1.4 PG/ML (2.0-4.4)
[2020-11-07] MEDS: FUROsemide 10 mg/mL SDV 2mL 20 MG IVP (11:32)
--- NOTE | 2020-11-07 12:32 | PC.NURSE ---
Manual blood pressure due to low reading on machine.
[2020-11-07] MEDS: ipratropium 0.5 mg/2.5 mL Neb INHALATION ×3 (12:54→19:31)
[2020-11-07] MEDS: levalbuterol 0.63 mg/3 mL Neb INHALATION ×3 (12:54→19:31)
[2020-11-07] MEDS: acetaminophen 325 mg Tablet 650 MG PO (15:51)
--- NOTE | 2020-11-07 16:34 | PM.PN ---
Subjective Subjective: Interval history: No events overnight. On examination patient sitting in chair. On 40 L 60% saturating 94%. Denies any nausea, vomiting, headache. Working appropriately with physical therapy. Working with incentive spirometry and flutter valve. Discussed in detail for him need to do more with IS and flutter valve. Medications: Reviewed: Yes Vitals/I&O/Wt Last Vital Signs Temp 98.1 F 11/07/20 12:00 Pulse 87 11/07/20 14:00 Resp 18 11/07/20 12:54 BP 98/66 11/07/20 12:31 Pulse Ox 90 11/07/20 12:54 11/07/20 11/07/20 11/07/20 06:59 14:59 22:59 Intake Total 400 / 2530 490 / 490 Output Total 400 / 900 Balance 0 / 1630 490 / 490 Physical Exam Narrative: EXAM NARRATIVE: General: No acute distress, AO x3, frail, sick appearing HEENT: PERRLA, pupils bilaterally equal and reactive Chest: Bilateral bronchial breath sounds, coarse crackles present bilaterally over the lung blair, occasional rhonchi present all over the lung blair, equal good air entry bilaterally CVS: S1-S2 irregularly irregular, pansystolic murmur present in fourth intercostal space, left parasternal region, no tachycardia, no gallops, no rubs Abdomen: Soft, nontender, no organomegaly, bowel sounds present Neuro: No focal deficits, no facial deformity, AO x3, power 5/5 in all limbs Data : 11/07/20 04:33 11/07/20 04:33 Micro: Microbiology 11/06/20 11:10 MRSA Culture - Final Nose 11/06/20 13:20 Legionella Urinary Antigen - Final Urine,Clean Catch 11/06/20 13:20 Bacterial Antigens - Final Urine Kidney A&P Assessment and plan (1) Acute hypoxemic respiratory failure due to COVID-19: Status: Acute (2) Bacterial pneumonia: Status: Acute (3) Atrial fibrillation with RVR: Status: Acute (4) Congestive heart failure: Status: Acute (5) Right-sided heart failure: Status: Acute (6) ASHD (arteriosclerotic heart disease): Status: Acute (7) Hyperlipidemia: Status: Acute Qualifiers: Hyperlipidemia type: mixed hyperlipidemia Qualified Code(s): E78.2 - Mixed hyperlipidemia (8) Hypertension: Status: Acute Qualifiers: Hypertension type: essential hypertension Qualified Code(s): I10 - Essential (primary) hypertension Additional A&P Information Hypoxia secondary to COVID-19 pneumonia along with possible superadded bacterial pneumonia: Moderate disease. Oxygen supplementation keeping saturation over 88%. Dexamethasone 6 mg daily. Remdesivir to finish a 5-day course. Vitamin C, zinc. DuoNebs every 6 hours, budesonide twice daily. Pulmonary toilet with incentive spirometry flutter valve. We will monitor inflammatory markers including ferritin, ESR, CRP, D-dimer, fibrinogen. We will try to hold off on Actemra because of high chance of patient having bacterial pneumonia. D-dimer elevated. CTA negative for pulmonary embolism. For now continue with full dose anticoagulation with full dose Lovenox 60 mg twice daily. Will monitor for anemia or blood loss. Most likely patient will be discharged on anticoagulation because of persistent atrial fibrillation. Procalcitonin elevated, Sputum culture pending, urine Legionella, bacterial antigen, MRSA negative. Blood cultures so far negative. Continue Zosyn and azithromycin. Stop vancomycin as MRSA is negative. Will plan to continue azithromycin to finish a 5-day course and Zosyn for 7 days. Given hypoxia will try to keep patient as negative as possible. Echocardiogram done earlier in the admission shows an EF of 40% with moderately decreased LV systolic function, consistent with right ventricular volume overload, moderately increased right atrial size, moderately increased right ventricular size, moderate MR, moderate TR. We will try to keep patient as negative as possible. Continue with Lasix 40 mg oral daily. Lasix 20 mg IV stat Fluid restriction up to 1500 cc. Strict input output charting, daily weights. Atrial Fibrillation with RVR: Converted to sinus rhythm. Blood pressure is better. Continue with metoprolol 50 mg twice daily, Cardizem 120 mg oral daily. Gilmer vas score- 4. Continue Lovenox 60 mg twice daily which will also help with stroke prevention. Coronary artery disease hx of CABG 21 mg daily, statin Telemetry. Troponin trend not consistent with acute ischemia ECHO ordered Appreciate cardiology recommendations. Elevated LFTs: Resolved. Hx of Post-nasal drip Allergic rhinitis Zyrtec 10 mg PO daily Possible dysphagia ST eval. advance diet as per recommendations. Aspiration precautions Benign prostatic hyperplasia Flomax 0.4 mg PO daily GI ppx Protonix 40 mg PO daily DVT ppx Lovenox 60 mg SQ Q12 Attestations Medical Necessity Statement*: Requires further hospitalization for management of severe hypoxia secondary COVID-19 pneumonia with superadded bacterial pneumonia requiring heated high flow, atrial fibrillation Time Spent in Patient Care: Greater than 35 minutes (>than 50% of time spent in counselling and/or direct pt care on unit). 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
[2020-11-07 17:49] LABS: ABG PCO2 40.1 mmHg (35-45); ABG PH Result 7.47 (7.35-7.45); Arterial Blood Gas Hematocrit 37.3 % (42-52); Base Excess ABG 4.9 mmol/L (-2.0-2.0); Blood Gas Allen Test Pos; Blood Gas Sample Site Radial, left; Blood Gas Sample Type Arterial; Oxygen Device HAG; PO2 ABG 60.3 mmHg (80.0-100.0)
--- NOTE | 2020-11-07 18:26 | PM.PN ---
Subjective Subjective: Interval history: Heart rate ranges between 90s to 120 Medications: Reviewed: Yes Vitals/I&O/Wt Last Vital Signs Temp 98.1 F 11/07/20 12:00 Pulse 93 11/07/20 16:39 Resp 18 11/07/20 16:34 BP 98/66 11/07/20 12:31 Pulse Ox 92 11/07/20 16:34 11/07/20 11/07/20 11/07/20 06:59 14:59 22:59 Intake Total 400 / 2530 490 / 490 240 / 730 Output Total 400 / 900 220 / 220 200 / 420 Balance 0 / 1630 270 / 270 40 / 310 Physical Exam Narrative: EXAM NARRATIVE: Physical examination not performed by me please review full exam by medicine colleagues Data : 11/07/20 04:33 11/07/20 04:33 Micro: Microbiology 11/06/20 11:10 MRSA Culture - Final Nose 11/06/20 13:20 Legionella Urinary Antigen - Final Urine,Clean Catch 11/06/20 13:20 Bacterial Antigens - Final Urine Kidney A&P Assessment and plan (1) Atrial fibrillation with RVR: Continue enoxaparin, calcium channel gaurav and beta-gaurav, consider adding digoxin. Status: Acute (2) Coronary artery abnormality: Appear to be stable Status: Acute (3) Hypertension: Blood pressure is on the low side. Status: Acute Qualifiers: Hypertension type: essential hypertension Qualified Code(s): I10 - Essential (primary) hypertension Attestations Medical Necessity Statement*: Require continuation hospitalization ? 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
--- NOTE | 2020-11-07 18:40 | PC.NURSE ---
Shift Note Frequent safety and comfort rounds continue. Orders and/or nursing care completed as indicated. Patient monitored for response to intervention and treatment(s). Education provided includes[high flow oxygen]. Patient and/or sales utility representative [states understanding.]. Will continue to monitor.
[2020-11-07] MEDS: dexamethasone 4 mg/mL INJ 6 MG IVP (20:29)
[2020-11-07] MEDS: metoprolol tartrate 50 mg Tablet PO (20:30)
[2020-11-07 22:25] LABS: Vancomycin Trough < 4.0 ug/mL (10-15)
[2020-11-08] VITALS (17 sets, daily range): BP systolic 99–108; BP diastolic 53–60; PULSE 62–99; RESP 18–24; TEMP 36.6–36.8; O2SAT 90–95
[2020-11-08] MEDS: ipratropium 0.5 mg/2.5 mL Neb INHALATION ×7 (00:49→23:55)
[2020-11-08] MEDS: levalbuterol 0.63 mg/3 mL Neb INHALATION ×7 (00:49→23:55)
[2020-11-08 03:43] LABS: Hematocrit 33.3 % (42.0-52.0); Hemoglobin 11.2 g/dL (11.7-16.6); Lymphocytes # 0.4 10^3/uL (0.8-4.8); Lymphocytes % 5.5 %; Mean Corpuscular HGB Conc 33.6 g/dL (30.0-36.0); Mean Corpuscular Hemoglobin 32.5 pg (28.0-34.0); Mean Corpuscular Volume 96.5 fl (80-94); Mean Platelet Volume 11.8 fL (7.4-10.4); Monocytes # 0.3 10^3/uL (0.2-0.9); Monocytes % 3.9 %; Neutrophils # 6.27 10^3/uL (1.8-7.7); Neutrophils % 90.2 %; Nucleated Red Blood Cells % 0 %; Platelet Count 227 10^3/cmm (130-400); Red Blood Count 3.45 10^6/uL (4.1-5.3); Red Cell Distribution Width 13.7 % (12.1-15.1)
[2020-11-08 04:11] LABS: Alanine Aminotransferase 27 U/L (0-41); Albumin Level 2.4 g/dL (3.5-5.2); Alkaline Phosphatase 60 IU/L (40-130); Anion Gap 11.8 (5-19); Aspartate Amino Transferase 20 U/L (0-40); Blood Urea Nitrogen 32 mg/dL (8-23); Calcium 7.7 mg/dL (8.5-10.5); Carbon Dioxide 28 mmol/L (22-29); Chloride 101 mmol/L (98-107); Globulin 2.8 g/dL (1.3-4.6); Glucose 154 mg/dL (65-115); NT Pro B Type Natriuretic Pept 876 pg/mL (0-450); Osmolality Calculated 294 mOsm/kg (285-295); Potassium 3.8 mmol/L (3.5-5.1); Sodium 137 mmol/L (136-145); Total Bilirubin 0.5 mg/dL (0.15-1.2); Total Protein 5.2 g/dL (6.6-8.7)
[2020-11-08] MEDS: piperacillin-tazobactam 3.375 GM in sodium chloride 0.9% (plus) 50 ML IV ×3 (06:00→21:51)
[2020-11-08] MEDS: budesonide 0.5 mg/2 mL Neb INHALATION ×2 (08:03→19:52)
[2020-11-08] MEDS: enoxaparin 60 mg/0.6 mL Syringe SUBCUT ×2 (09:43→20:34)
[2020-11-08] MEDS: benzonatate 100 mg Capsule PO ×3 (09:44→20:34)
[2020-11-08] MEDS: zinc gluconate 50 mg Tablet PO (09:44)
[2020-11-08] MEDS: aspirin 81 mg EC Tablet PO (09:44)
[2020-11-08] MEDS: cetirizine 10 mg Tablet PO (09:44)
[2020-11-08] MEDS: metoprolol tartrate 50 mg Tablet PO ×2 (09:44→20:34)
[2020-11-08] MEDS: FUROsemide 40 mg Tablet PO (09:44)
[2020-11-08] MEDS: ascorbic acid 500 mg Tablet PO ×2 (09:44→17:54)
[2020-11-08] MEDS: atorvastatin 40 mg Tablet 20 MG PO (09:45)
[2020-11-08] MEDS: dilTIAZem ER (24HR) 120 mg Capsule PO (09:45)
[2020-11-08] MEDS: pantoprazole DR 40 mg Tablet PO (09:45)
[2020-11-08] MEDS: tamsulosin 0.4 mg Capsule PO (09:45)
[2020-11-08] MEDS: azithromycin 250 mg Tablet 500 MG PO (09:45)
--- NOTE | 2020-11-08 10:33 | P.PN_ITS ---
Subjective Subjective: Interval history: Rate is controlled. Medications: Reviewed: Yes Vitals/I&O/Wt Last Vital Signs Temp 98.3 F 11/08/20 04:00 Pulse 64 11/08/20 08:17 Resp 22 H 11/08/20 08:04 BP 99/53 11/08/20 04:00 Pulse Ox 95 11/08/20 08:04 11/07/20 11/08/20 11/08/20 22:59 06:59 14:59 Intake Total 490 / 980 150 / 1130 Output Total 200 / 420 250 / 670 Balance 290 / 560 -100 / 460 Physical Exam Narrative: EXAM NARRATIVE: Physical examination not performed by me please review full exam by medicine colleagues Data : 11/08/20 03:00 11/08/20 03:00 Micro: Microbiology 11/07/20 13:50 Gram Stain - Final Sputum - Expectorated Sputum Sputum Culture - Preliminary A&P Assessment and plan (1) Atrial fibrillation with RVR: Continues to be in A. fib but with controlled rate. We will continue Cardizem and beta-gaurav as it is Status: Acute (2) Coronary artery abnormality: Appear to be stable Status: Acute (3) Hypertension: Blood pressure is on the lower side. Status: Acute Qualifiers: Hypertension type: essential hypertension Qualified Code(s): I10 - Essential (primary) hypertension Attestations Medical Necessity Statement*: As per medicine. 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
--- NOTE | 2020-11-08 10:39 | PC.SOCIAL ---
IMM Updated Updated pt on Pg 2 IMM, via phone. No questions voiced. Provided pt a copy. Initialed, dated, & timed copy in chart.
[2020-11-08] MEDS: FUROsemide 10 mg/mL SDV 2mL 20 MG IVP (11:41)
--- NOTE | 2020-11-08 12:19 | PC.NUTR ---
Nutrition note: Recommend to increase Ensure to TID for additional kcal/protein, and to provide meal preferences as appropriate. Spoke with FPGA DESIGN ENGINEER (Yanira) who stated plans to continue current diet/liquid plan but pt may have water (not thickened). See full RD assessment for further details.
--- NOTE | 2020-11-08 13:44 | P.PN_ITS ---
Subjective Subjective: Interval history: No events overnight. On examination patient sitting in chair. On 40 L 60% saturating 94%. Denies any nausea, vomiting, headache. Working appropriately with physical therapy. Working with incentive spirometry and flutter valve. Discussed in detail for him need to do more with IS and flutter valve. Medications: Reviewed: Yes Vitals/I&O/Wt Last Vital Signs Temp 98.3 F 11/08/20 04:00 Pulse 99 11/08/20 11:55 Resp 22 H 11/08/20 11:55 BP 99/53 11/08/20 04:00 Pulse Ox 92 11/08/20 11:55 11/07/20 11/08/20 11/08/20 22:59 06:59 14:59 Intake Total 490 / 980 150 / 1130 Output Total 200 / 420 250 / 670 750 / 750 Balance 290 / 560 -100 / 460 -750 / -750 Physical Exam Narrative: EXAM NARRATIVE: General: No acute distress, AO x3, frail, sick appearing HEENT: PERRLA, pupils bilaterally equal and reactive Chest: Bilateral bronchial breath sounds, coarse crackles present bilaterally over the lung blair, occasional rhonchi present all over the lung blair, equal good air entry bilaterally CVS: S1-S2 irregularly irregular, pansystolic murmur present in fourth intercostal space, left parasternal region, no tachycardia, no gallops, no rubs Abdomen: Soft, nontender, no organomegaly, bowel sounds present Neuro: No focal deficits, no facial deformity, AO x3, power 5/5 in all limbs Data : 11/08/20 03:00 11/08/20 03:00 Micro: Microbiology 11/07/20 13:50 Gram Stain - Final Sputum - Expectorated Sputum Sputum Culture - Preliminary A&P Assessment and plan (1) Acute hypoxemic respiratory failure due to COVID-19: Status: Acute (2) Bacterial pneumonia: Status: Acute (3) Atrial fibrillation with RVR: Status: Acute (4) Congestive heart failure: Status: Acute (5) Right-sided heart failure: Status: Acute (6) ASHD (arteriosclerotic heart disease): Status: Acute (7) Hyperlipidemia: Status: Acute Qualifiers: Hyperlipidemia type: mixed hyperlipidemia Qualified Code(s): E78.2 - Mixed hyperlipidemia (8) Hypertension: Status: Acute Qualifiers: Hypertension type: essential hypertension Qualified Code(s): I10 - Essential (primary) hypertension Additional A&P Information Hypoxia secondary to COVID-19 pneumonia along with possible superadded bacterial pneumonia: Moderate disease. Oxygen supplementation keeping saturation over 88%. Dexamethasone 6 mg daily. Remdesivir to finish a 5-day course. Vitamin C, zinc. Ipratropium and Xopenex every 4 hours, budesonide twice daily. Pulmonary toilet with incentive spirometry flutter valve. We will monitor inflammatory markers including ferritin, ESR, CRP, D-dimer, fibrinogen. We will try to hold off on Actemra because of high chance of patient having bacterial pneumonia. D-dimer elevated. CTA negative for pulmonary embolism. For now continue with full dose anticoagulation with full dose Lovenox 1 mg/kg body weight every 12 hourly. Will monitor for anemia or blood loss. Most likely patient will be discharged on anticoagulation because of persistent atrial fibrillation. Procalcitonin elevated, Sputum culture pending, urine Legionella, bacterial antigen, MRSA negative. Blood cultures so far negative. Continue Zosyn and azithromycin. Vancomycin stopped as MRSA negative. Will plan to continue azithromycin to finish a 5-day course and Zosyn for 7 days. Last dose of antibiotics on November 11. Given hypoxia will try to keep patient as negative as possible. Echocardiogram done earlier in the admission shows an EF of 40% with moderately decreased LV systolic function, consistent with right ventricular volume overload, moderately increased right atrial size, moderately increased right ventricular size, moderate MR, moderate TR. We will try to keep patient as negative as possible. Continue with Lasix 40 mg oral daily. Lasix 20 mg IV stat Fluid restriction up to 1500 cc. Strict input output charting, daily weights. Atrial Fibrillation with RVR: Converted to sinus rhythm. Blood pressure is better. Continue with metoprolol 50 mg twice daily, Cardizem 120 mg oral daily. Gilmer vas score- 4. Continue Lovenox 60 mg twice daily which will also help with stroke prevention. Coronary artery disease hx of CABG Aspirin 81 mg daily, statin Telemetry. Troponin trend not consistent with acute ischemia ECHO ordered Appreciate cardiology recommendations. Elevated LFTs: Resolved. Hx of Post-nasal drip Allergic rhinitis Zyrtec 10 mg PO daily Possible dysphagia ST eval. advance diet as per recommendations. Aspiration precautions Benign prostatic hyperplasia Flomax 0.4 mg PO daily GI ppx Protonix 40 mg PO daily DVT ppx Lovenox 60 mg SQ Q12 Patient's care discussed in detail with his daughter on the phone. All the q uestions were answered. We discussed unfortunately Mr. Worthington is still requiring a lot of oxygen supplementation which is most likely secondary to a combination of Covid pneumonia, superadded bacterial infection and congestive heart failure. We discussed that it is possible that Mr. Worthington will be in the hospital for couple of weeks while the wait for his oxygen supplementation to calm down. We also discussed possible discharge options if and when his oxygen supplementation trends down. Attestations Medical Necessity Statement*: Requires further hospitalization for management of severe hypoxia secondary to COVID-19 pneumonia, superadded bacterial infection, congestive heart failure. Time Spent in Patient Care: Greater than 35 minutes (>than 50% of time s pent in counselling and/or direct pt care on unit) . 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
[2020-11-08 15:21] LABS: C Reactive Protein 63.3 mg/L (0.0-4.9)
[2020-11-08 17:06] LABS: D Dimer 0.59 ug/mIFEU (0-0.59)
--- NOTE | 2020-11-08 19:47 | PC.NURSE ---
Shift Note Frequent safety and comfort rounds continue. Orders and/or nursing care completed as indicated. Patient monitored for response to intervention and treatment(s). Education provided includes instruction in lasix. Patient and/or promotional representative verb understanding of instruction. Will continue to monitor.
[2020-11-08] MEDS: dexamethasone 4 mg/mL INJ 6 MG IVP (20:34)
[2020-11-08 22:03] LABS: Erythrocyte Sedimentation Rate 13 mm/hr (0-10)
[2020-11-09] VITALS (22 sets, daily range): BP systolic 99–128; BP diastolic 56–80; PULSE 74–97; RESP 19–40; TEMP 36.6–36.7; O2SAT 88–95
[2020-11-09] MEDS: ipratropium 0.5 mg/2.5 mL Neb INHALATION ×6 (03:46→23:49)
[2020-11-09] MEDS: levalbuterol 0.63 mg/3 mL Neb INHALATION ×6 (03:46→23:49)
[2020-11-09 04:52] LABS: Basophils % 0.1 %; Hemoglobin 12.5 g/dL (11.7-16.6); Lymphocytes # 0.9 10^3/uL (0.8-4.8); Lymphocytes % 9.9 %; Mean Corpuscular HGB Conc 33.8 g/dL (30.0-36.0); Mean Corpuscular Hemoglobin 31.5 pg (28.0-34.0); Mean Corpuscular Volume 93.2 fl (80-94); Monocytes # 0.3 10^3/uL (0.2-0.9); Monocytes % 3.4 %; Neutrophils # 7.43 10^3/uL (1.8-7.7); Neutrophils % 86.1 %; Nucleated Red Blood Cells % 0 %; Platelet Count 283 10^3/cmm (130-400); Red Blood Count 3.97 10^6/uL (4.1-5.3); Red Cell Distribution Width 13.5 % (12.1-15.1); White Blood Count 8.6 10^3/uL (4.0-10.0)
[2020-11-09 05:06] LABS: Alanine Aminotransferase 29 U/L (0-41); Albumin Level 2.8 g/dL (3.5-5.2); Alkaline Phosphatase 61 IU/L (40-130); Anion Gap 14.6 (5-19); Aspartate Amino Transferase 21 U/L (0-40); Blood Urea Nitrogen 34 mg/dL (8-23); Calcium 8.3 mg/dL (8.5-10.5); Carbon Dioxide 32 mmol/L (22-29); Chloride 96 mmol/L (98-107); D Dimer 0.51 ug/mIFEU (0-0.59); Globulin 3.3 g/dL (1.3-4.6); Glucose 158 mg/dL (65-115); Osmolality Calculated 299 mOsm/kg (285-295); Potassium 3.6 mmol/L (3.5-5.1); Sodium 139 mmol/L (136-145); Total Bilirubin 0.7 mg/dL (0.15-1.2); Total Protein 6.1 g/dL (6.6-8.7)
[2020-11-09 05:16] LABS: NT Pro B Type Natriuretic Pept 897 pg/mL (0-450); Procalcitonin 0.23 ng/mL (0-0.5)
[2020-11-09 05:26] LABS: C Reactive Protein 68.5 mg/L (0.0-4.9)
[2020-11-09 05:50] LABS: Erythrocyte Sedimentation Rate 55 mm/hr (0-10)
--- NOTE | 2020-11-09 06:00 | XR_ITS ---
WS: [id number] Portable AP upright chest, 11/09/2020 Clinical Data: covid Comparison: Portable chest, 11/07/2020. Findings: The patchy bilateral pulmonary opacities have not changed. The heart is enlarged. Midline s ternotomy sutures and mediastinal clips are present. Monitor leads are on the chest wall. XR/XR chest 1V portable [id number] Impression: 1. No change in bilateral patchy pulmonary opacities. 2. Atherosclerosis and cardiomegaly.
[2020-11-09] MEDS: piperacillin-tazobactam 3.375 GM in sodium chloride 0.9% (plus) 50 ML IV ×2 (06:04→15:13)
[2020-11-09] MEDS: budesonide 0.5 mg/2 mL Neb INHALATION ×2 (08:08→19:44)
[2020-11-09] MEDS: atorvastatin 40 mg Tablet 20 MG PO (10:01)
[2020-11-09] MEDS: dilTIAZem ER (24HR) 120 mg Capsule PO (10:02)
[2020-11-09] MEDS: ascorbic acid 500 mg Tablet PO ×2 (10:02→18:58)
[2020-11-09] MEDS: azithromycin 250 mg Tablet 500 MG PO (10:04)
[2020-11-09] MEDS: pantoprazole DR 40 mg Tablet PO (10:04)
[2020-11-09] MEDS: aspirin 81 mg EC Tablet PO (10:04)
[2020-11-09] MEDS: benzonatate 100 mg Capsule PO ×3 (10:05→21:39)
[2020-11-09] MEDS: tamsulosin 0.4 mg Capsule PO (10:05)
[2020-11-09] MEDS: zinc gluconate 50 mg Tablet PO (10:05)
[2020-11-09] MEDS: FUROsemide 40 mg Tablet PO (10:06)
[2020-11-09] MEDS: cetirizine 10 mg Tablet PO (10:06)
[2020-11-09] MEDS: enoxaparin 60 mg/0.6 mL Syringe SUBCUT ×2 (10:06→21:39)
[2020-11-09] MEDS: metoprolol tartrate 50 mg Tablet PO ×2 (10:10→21:49)
[2020-11-09] MEDS: FUROsemide 10 mg/mL SDV 2mL 20 MG IVP (15:13)
--- NOTE | 2020-11-09 15:43 | PM.PN ---
Subjective Subjective: Interval history: No acute events overnight. Patient has been hemodynamically stable. Currently on 35 to 65% saturating 94%. Laying comfortably in bed. States working with I-S and Acapella. States trying to get a comfortable position in bed. Trying to do semiprone position when possible. States feeling better. States nothing tasting well. Medications: Reviewed: Yes Vitals/I&O/Wt Last Vital Signs Temp 98.1 F 11/09/20 08:00 Pulse 90 11/09/20 12:00 Resp 22 H 11/09/20 12:00 BP 128/80 11/09/20 12:00 Pulse Ox 94 11/09/20 12:00 11/09/20 11/09/20 11/09/20 06:59 14:59 22:59 Intake Total 350 / 450 50 / 50 Balance 350 / -1050 50 / 50 Physical Exam Narrative: EXAM NARRATIVE: General: No acute distress, AO x3, frail, sick appearing HEENT: PERRLA, pupils bilaterally equal and reactive Chest: Bilateral bronchial breath sounds, coarse crackles present bilaterally over the lung blair, occasional rhonchi present all over the lung blair, equal good air entry bilaterally CVS: S1-S2 irregularly irregular, pansystolic murmur present in fourth intercostal space, left parasternal region, no tachycardia, no gallops, no rubs Abdomen: Soft, nontender, no organomegaly, bowel sounds present Neuro: No focal deficits, no facial deformity, AO x3, power 5/5 in all limbs Data : 11/09/20 04:20 11/09/20 04:20 Micro: Microbiology 11/04/20 14:59 Blood Culture - Final Blood NO GROWTH AFTER 5 DAYS 11/04/20 14:50 Blood Culture - Final Blood NO GROWTH AFTER 5 DAYS 11/07/20 13:50 Gram Stain - Final Sputum - Expectorated Sputum Sputum Culture - Preliminary Gram Negative Rods A&P Assessment and plan (1) Acute hypoxemic respiratory failure due to COVID-19: Status: Acute (2) Bacterial pneumonia: Status: Acute (3) Atrial fibrillation with RVR: Status: Acute (4) Congestive heart failure: Status: Acute (5) Right-sided heart failure: Status: Acute (6) ASHD (arteriosclerotic heart disease): Status: Acute (7) Hyperlipidemia: Status: Acute Qualifiers: Hyperlipidemia type: mixed hyperlipidemia Qualified Code(s): E78.2 - Mixed hyperlipidemia (8) Hypertension: Status: Acute Qualifiers: Hypertension type: essential hypertension Qualified Code(s): I10 - Essential (primary) hypertension Additional A&P Information Hypoxia secondary to COVID-19 pneumonia along with possible superadded bacterial pneumonia: Moderate disease. Oxygen supplementation keeping saturation over 88%. Dexamethasone 6 mg daily. Remdesivir to finish a 5-day course. Vitamin C, zinc. Ipratropium and Xopenex every 4 hours, budesonide twice daily. Pulmonary toilet with incentive spirometry flutter valve. We will monitor inflammatory markers including ferritin, ESR, CRP, D-dimer, fibrinogen. We will try to hold off on Actemra because of high chance of patient having bacterial pneumonia. D-dimer elevated. CTA negative for pulmonary embolism. For now continue with full dose anticoagulation with full dose Lovenox 1 mg/kg body weight every 12 hourly. Will monitor for anemia or blood loss. Procalcitonin elevated, urine Legionella, bacterial antigen, MRSA negative, blood culture negative. Sputum culture growing gram-negative rods. Continue with Zosyn to finish a 7-day course. Switch azithromycin to Levaquin for double possible Pseudomonas coverage and atypical coverage. Vancomycin stopped as MRSA negative. Given hypoxia will try to keep patient as negative as possible. Echocardiogram done earlier in the admission shows an EF of 40% with moderately decreased LV systolic function, consistent with right ventricular volume overload, moderately increased right atrial size, moderately increased right ventricular size, moderate MR, moderate TR. We will try to keep patient as negative as possible. Continue with Lasix 40 mg oral daily. Lasix 20 mg IV stat Fluid restriction up to 1500 cc. Strict input output charting, daily weights. Atrial Fibrillation with RVR: Converted to sinus rhythm. Blood pressure is better. Continue with metoprolol 50 mg twice daily, Cardizem 120 mg oral daily. Gilmer vas score- 4. Continue Lovenox 60 mg twice daily which will also help with stroke prevention. Coronary artery disease hx of CABG Aspirin 81 mg daily, statin Telemetry. Troponin trend not consistent with acute ischemia ECHO ordered Appreciate cardiology recommendations. Elevated LFTs: Resolved. Hx of Post-nasal drip Allergic rhinitis Zyrtec 10 mg PO daily Possible dysphagia ST eval. advance diet as per recommendations. Aspiration precautions Benign prostatic hyperplasia Flomax 0.4 mg PO daily GI ppx Protonix 40 mg PO daily DVT ppx Lovenox 60 mg SQ Q12 Patient's care discussed in detail with his daughter on the phone. All the questions were answered. We discussed unfortunately Mr. Worthington is still requiring a lot of oxygen supplementation which is most likely secondary to a combination of Covid pneumonia, superadded bacterial infection and congestive heart failure. We discussed that it is possible that Mr. Worthington will be in the hospital for couple of weeks while the wait for his oxygen supplementation to calm down. We also discussed possible discharge options if and when his oxygen supplementation trends down. Attestations Medical Necessity Statement*: Requires further hospitalization for management of severe hypoxia secondary to COVID-19 pneumonia, superadded bacterial pneumonia while still requiring heated high flow Time Spent in Patient Care: Greater than 35 minutes (>than 50% of time spent in counselling and/or direct pt care on unit). 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
--- NOTE | 2020-11-09 16:00 | PC.NURSE ---
Pt lying in bed resting with eyes closed. Resp even and non-labored no distress noted. Pt receiving O2 at 40 Lpm at 65% heated Hi Ashish. Pt had no c/o pain or discomfort at the present time. No needs voiced at the present time. Call light in reach. Will cont to monitor.
[2020-11-09] MEDS: levoFLOXacin 500 mg Tablet PO (18:58)
[2020-11-09] MEDS: dexamethasone 4 mg/mL INJ 6 MG IVP (21:38)
--- NOTE | 2020-11-09 21:49 | PM.PN ---
Subjective Subjective: Interval history: Heart rate remained stable. Medications: Reviewed: Yes Vitals/I&O/Wt Last Vital Signs Temp 98.1 F 11/09/20 08:00 Pulse 88 11/09/20 20:21 Resp 23 H 11/09/20 20:10 BP 122/72 11/09/20 20:10 Pulse Ox 90 11/09/20 20:10 11/09/20 11/09/20 11/09/20 06:59 14:59 22:59 Intake Total 350 / 450 50 / 50 50 / 100 Output Total 525 / 525 Balance 350 / -1050 50 / 50 -475 / -425 Physical Exam Narrative: EXAM NARRATIVE: Physical examination not performed by me please review full exam by medicine colleagues Data : 11/09/20 04:20 11/09/20 04:20 Micro: Microbiology 11/04/20 14:59 Blood Culture - Final Blood NO GROWTH AFTER 5 DAYS 11/04/20 14:50 Blood Culture - Final Blood NO GROWTH AFTER 5 DAYS 11/07/20 13:50 Gram Stain - Final Sputum - Expectorated Sputum Sputum Culture - Preliminary Gram Negative Rods A&P Assessment and plan (1) Atrial fibrillation with RVR: Continue current regimen continue to optimize Cardizem and beta-gaurav Status: Acute (2) Coronary artery abnormality: Remained stable. Status: Acute (3) Hypertension: Well-controlled. Status: Acute Qualifiers: Hypertension type: essential hypertension Qualified Code(s): I10 - Essential (primary) hypertension Attestations Medical Necessity Statement*: Patient require continuation hospitalization for above defined care. Coding Level of Care Code Established Pt Acute Manager Mental Health for g Fwd Patient Type Established History Expanded Problem Focused Exam Expanded Problem Focused Medical Decision Making Moderate Complexity Diagnoses Atrial fibrillation with RVR I48.91 Coronary artery abnormality Q24.5 Hypertension I10 Hypertension type: essential hypertension
[2020-11-10] VITALS (17 sets, daily range): BP systolic 88–122; BP diastolic 56–72; PULSE 72–129; RESP 20–29; TEMP 36.7–36.8; O2SAT 88–95
[2020-11-10] MEDS: piperacillin-tazobactam 3.375 GM in sodium chloride 0.9% (plus) 50 ML IV ×4 (00:17→22:24)
[2020-11-10] MEDS: ipratropium 0.5 mg/2.5 mL Neb INHALATION ×5 (04:03→22:10)
[2020-11-10] MEDS: levalbuterol 0.63 mg/3 mL Neb INHALATION ×5 (04:04→22:10)
[2020-11-10 04:27] LABS: Basophils % 0.1 %; Hematocrit 36.1 % (42.0-52.0); Hemoglobin 12.2 g/dL (11.7-16.6); Lymphocytes # 0.7 10^3/uL (0.8-4.8); Lymphocytes % 5.6 %; Mean Corpuscular HGB Conc 33.8 g/dL (30.0-36.0); Mean Corpuscular Hemoglobin 31.6 pg (28.0-34.0); Mean Corpuscular Volume 93.5 fl (80-94); Mean Platelet Volume 11.5 fL (7.4-10.4); Monocytes # 1.1 10^3/uL (0.2-0.9); Monocytes % 8.1 %; Neutrophils # 11.24 10^3/uL (1.8-7.7); Neutrophils % 85.7 %; Nucleated Red Blood Cells % 0 %; Platelet Count 268 10^3/cmm (130-400); Red Blood Count 3.86 10^6/uL (4.1-5.3); Red Cell Distribution Width 13.5 % (12.1-15.1); White Blood Count 13.1 10^3/uL (4.0-10.0)
[2020-11-10 04:41] LABS: C Reactive Protein 35.8 mg/L (0.0-4.9)
[2020-11-10 04:44] LABS: Alanine Aminotransferase 25 U/L (0-41); Albumin Level 2.7 g/dL (3.5-5.2); Alkaline Phosphatase 56 IU/L (40-130); Anion Gap 10.5 (5-19); Aspartate Amino Transferase 17 U/L (0-40); Blood Urea Nitrogen 39 mg/dL (8-23); Calcium 8.2 mg/dL (8.5-10.5); Carbon Dioxide 35 mmol/L (22-29); Chloride 97 mmol/L (98-107); Globulin 3.1 g/dL (1.3-4.6); Glucose 135 mg/dL (65-115); Osmolality Calculated 299 mOsm/kg (285-295); Potassium 3.5 mmol/L (3.5-5.1); Sodium 139 mmol/L (136-145); Total Bilirubin 0.7 mg/dL (0.15-1.2); Total Protein 5.8 g/dL (6.6-8.7)
[2020-11-10 04:45] LABS: D Dimer 0.45 ug/mIFEU (0-0.59)
[2020-11-10] MEDS: levoFLOXacin 500 mg Tablet PO (06:09)
[2020-11-10 06:42] LABS: Erythrocyte Sedimentation Rate 45 mm/hr (0-10)
--- NOTE | 2020-11-10 07:12 | PC.NURSE ---
Shift Note Frequent safety and comfort rounds continue. Orders and/or nursing care completed as indicated. Patient monitored for response to intervention and treatment(s). Education provided includesantibiotics being changed to po. ]. Patient and/or assisted sales representative verbalized understanding. Will continue to monitoring of o2 saturations and vital signs.
[2020-11-10] MEDS: budesonide 0.5 mg/2 mL Neb INHALATION ×2 (08:03→22:10)
--- NOTE | 2020-11-10 10:03 | PC.SOCIAL ---
IMM Update Discussed patient's medicare rights with Elodia, patient's daughter, via phone call. Verbalized understanding. Initialed timed dated copy in chart.
[2020-11-10] MEDS: atorvastatin 40 mg Tablet 20 MG PO (10:46)
[2020-11-10] MEDS: aspirin 81 mg EC Tablet PO (10:48)
[2020-11-10] MEDS: tamsulosin 0.4 mg Capsule PO (10:48)
[2020-11-10] MEDS: zinc gluconate 50 mg Tablet PO (10:48)
[2020-11-10] MEDS: benzonatate 100 mg Capsule PO ×3 (10:49→20:43)
[2020-11-10] MEDS: dilTIAZem ER (24HR) 120 mg Capsule PO (10:49)
[2020-11-10] MEDS: ascorbic acid 500 mg Tablet PO ×2 (10:49→18:44)
[2020-11-10] MEDS: FUROsemide 40 mg Tablet PO (10:50)
[2020-11-10] MEDS: cetirizine 10 mg Tablet PO (10:50)
[2020-11-10] MEDS: enoxaparin 60 mg/0.6 mL Syringe SUBCUT ×2 (10:50→20:43)
[2020-11-10] MEDS: pantoprazole DR 40 mg Tablet PO (10:51)
[2020-11-10] MEDS: metoprolol tartrate 50 mg Tablet PO ×2 (12:50→20:51)
--- NOTE | 2020-11-10 13:42 | PM.PN ---
Subjective Subjective: Interval history: Patient went back into A. fib as he has not received metoprolol this morning Medications: Reviewed: Yes Vitals/I&O/Wt Last Vital Signs Temp 98.1 F 11/10/20 03:47 Pulse 129 H 11/10/20 11:48 Resp 24 H 11/10/20 11:48 BP 99/64 11/10/20 03:47 Pulse Ox 89 L 11/10/20 11:48 11/09/20 11/10/20 11/10/20 22:59 06:59 14:59 Intake Total 550 / 600 50 / 650 50 / 50 Output Total 1050 / 1050 500 / 1550 Balance -500 / -450 -450 / -900 50 / 50 Physical Exam Narrative: EXAM NARRATIVE: Physical examination not performed by me please review full exam by medicine colleagues Data : 11/10/20 04:03 11/10/20 04:03 Micro: Microbiology 11/07/20 13:50 Gram Stain - Final Sputum - Expectorated Sputum Sputum Culture - Final Citrobacter koseri 11/04/20 14:59 Blood Culture - Final Blood NO GROWTH AFTER 5 DAYS 11/04/20 14:50 Blood Culture - Final Blood NO GROWTH AFTER 5 DAYS A&P Assessment and plan (1) Atrial fibrillation with RVR: I will give him another extra half 25 mg of metoprolol if does not get better with 50 mg of metoprolol which was missed this morning. We will continue p.o. calcium channel gaurav at 120 mg. If blood pressure is issue we can always add digoxin since creatinine is within normal range. Continue anticoagulation as per protocol he is on Lovenox Status: Acute (2) Coronary artery abnormality: Remained stable. Status: Acute (3) Hypertension: On the lower side but still around 99 Status: Acute Qualifiers: Hypertension type: essential hypertension Qualified Code(s): I10 - Essential (primary) hypertension Attestations Medical Necessity Statement*: Patient require continuation hospitalization for above defined care Coding Level of Care Code Established Pt Acute Product/Industry Consultant for [facility] Patient Type Established History Expanded Problem Focused Exam Expanded Problem Focused Medical Decision Making Moderate Complexity Diagnoses Atrial fibrillation with RVR I48.91 Coronary artery abnormality Q24.5 Hypertension I10 Hypertension type: essential hypertension
--- NOTE | 2020-11-10 14:13 | PM.PN ---
Subjective Subjective: Interval history: No acute events overnight. Patient has remained on heated high flow. Currently on 35 L 55% saturating 89 to 91%. Today morning patient went back into A. fib as he has not received metoprolol this morning or after 1 PM. Patient denies any nausea, vomiting, headache. Medications: Reviewed: Yes Vitals/I&O/Wt Last Vital Signs Temp 98.1 F 11/10/20 03:47 Pulse 129 H 11/10/20 11:48 Resp 24 H 11/10/20 11:48 BP 99/64 11/10/20 03:47 Pulse Ox 89 L 11/10/20 11:48 11/09/20 11/10/20 11/10/20 22:59 06:59 14:59 Intake Total 550 / 600 50 / 650 50 / 50 Output Total 1050 / 1050 500 / 1550 Balance -500 / -450 -450 / -900 50 / 50 Physical Exam Narrative: EXAM NARRATIVE: General: No acute distress, AO x3, frail, sick appearing HEENT: PERRLA, pupils bilaterally equal and reactive Chest: Bilateral bronchial breath sounds, coarse crackles present bilaterally over the lung blair, occasional rhonchi present all over the lung blair, equal good air entry bilaterally CVS: S1-S2 irregularly irregular, pansystolic murmur present in fourth intercostal space, left parasternal region, no tachycardia, no gallops, no rubs Abdomen: Soft, nontender, no organomegaly, bowel sounds present Neuro: No focal deficits, no facial deformity, AO x3, power 5/5 in all limbs Data : 11/10/20 04:03 11/10/20 04:03 Micro: Microbiology 11/07/20 13:50 Gram Stain - Final Sputum - Expectorated Sputum Sputum Culture - Final Citrobacter koseri 11/04/20 14:59 Blood Culture - Final Blood NO GROWTH AFTER 5 DAYS 11/04/20 14:50 Blood Culture - Final Blood NO GROWTH AFTER 5 DAYS A&P Assessment and plan (1) Acute hypoxemic respiratory failure due to COVID-19: Status: Acute (2) Bacterial pneumonia: Status: Acute (3) Atrial fibrillation with RVR: Status: Acute (4) Congestive heart failure: Status: Acute (5) Right-sided heart failure: Status: Acute (6) ASHD (arteriosclerotic heart disease): Status: Acute (7) Hyperlipidemia: Status: Acute Qualifiers: Hyperlipidemia type: mixed hyperlipidemia Qualified Code(s): E78.2 - Mixed hyperlipidemia (8) Hypertension: Status: Acute Qualifiers: Hypertension type: essential hypertension Qualified Code(s): I10 - Essential (primary) hypertension Additional A&P Information Hypoxia secondary to COVID-19 pneumonia along with possible superadded Citrobacter pneumonia and congestive heart failure: Moderate disease. Oxygen supplementation keeping saturation over 88%. Dexamethasone 6 mg daily. Remdesivir to finish a 5-day course. Vitamin C, zinc. Ipratropium and Xopenex every 4 hours, budesonide twice daily. Pulmonary toilet with incentive spirometry flutter valve. We will monitor inflammatory markers including ferritin, ESR, CRP, D-dimer, fibrinogen. We will try to hold off on Actemra because of high chance of patient having bacterial pneumonia. D-dimer elevated. CTA negative for pulmonary embolism. For now continue with full dose anticoagulation with full dose Lovenox 1 mg/kg body weight every 12 hourly. Will monitor for anemia or blood loss. Procalcitonin elevated, urine Legionella, bacterial antigen, MRSA negative, blood culture negative. Sputum culture consistent with Citrobacter. Continue with Zosyn and Levaquin to finish a 7-day course. Given hypoxia will try to keep patient as negative as possible. Echocardiogram done earlier in the admission shows an EF of 40% with moderately decreased LV systolic function, consistent with right ventricular volume overload, moderately increased right atrial size, moderately increased right ventricular size, moderate MR, moderate TR. We will try to keep patient as negative as possible. Continue with Lasix 40 mg oral daily. Lasix 20 mg IV stat Fluid restriction up to 1500 cc. Strict input output charting, daily weights. Atrial Fibrillation with RVR: Converted to sinus rhythm. Blood pressure is better. Continue with metoprolol 50 mg twice daily, Cardizem 120 mg oral daily. Gilmer vas score- 4. Continue Lovenox 60 mg twice daily which will also help with stroke prevention. Coronary artery disease hx of CABG Aspirin 81 mg daily, statin Telemetry. Troponin trend not consistent with acute ischemia ECHO ordered Appreciate cardiology recommendations. Elevated LFTs: Resolved. Hx of Post-nasal drip Allergic rhinitis Zyrtec 10 mg PO daily Possible dysphagia ST eval. advance diet as per recommendations. Aspiration precautions Benign prostatic hyperplasia Flomax 0.4 mg PO daily GI ppx Protonix 40 mg PO daily DVT ppx Lovenox 60 mg SQ Q12 Patient's care discussed in detail with his daughter on the phone. All the questions were answered. We discussed unfortunately Mr. Worthington is still requiring a lot of oxygen supplementation which is most likely secondary to a combination of Covid pneumonia, superadded bacterial infection and congestive heart failure. We discussed that it is possible that Mr. Worthington will be in the hospital for couple of weeks while the wait for his oxygen supplementation to calm down. We also discussed possible discharge options if and when his oxygen supplementation trends down. Plan for the day: Continue with antibiotics for Citrobacter pneumonia, continue with dexamethasone and nebulization along with incentive spirometry and flutter valve. Will give an extra dose of metoprolol as patient back into A. fib with RVR because of delay in morning dose of Lopressor. Give extra dose of IV Lasix and monitor intake and output. Attestations Medical Necessity Statement*: Requires further hospitalization for management of hypoxia/ARDS secondary COVID-19 pneumonia and superadded right rib after bacterial pneumonia, A. fib with RVR, heart failure Time Spent in Patient Care: Greater than 35 minutes (>than 50% of time spent in counselling and/or direct pt care on unit). Coding Level of Care Code Acute Last Remodeler Repairer for [facility] Diagnoses Acute hypoxemic respiratory failure due to COVID-19 U07.1; J96.01 Bacterial pneumonia J15.9 Atrial fibrillation with RVR I48.91 Congestive heart failure I50.9 Right-sided heart failure I50.810 ASHD (arteriosclerotic heart disease) I25.10 Hyperlipidemia E78.2 Hyperlipidemia type: mixed hyperlipidemia Hypertension I10 Hypertension type: essential hypertension
--- NOTE | 2020-11-10 14:13 | PC.CHAP ---
Pastoral Care Encounter/Spiritual Assessment Type of Contact [] Declined obstetric anaesthetist visit [] Patient/Family/Request visit [] Outpatient visit [xx] Follow-up visit [] Physician referral [] Code/Alert [] Routine visit [] Staff referral [] Actively dying [] Patient sleeping [] Family support [] [] Out of room [] Palliative care [] [xx] Receiving care in room [] Pre-surgical visit [] Trauma [xx] Long length of stay [] ICU visit [] Other: Relational/Emotional Strength [] Patient feels connected with others/family/visitors/staff [] Distress [] Loneliness/isolation [] Abandonment Spirituality of Patient [] Person of [place] [] Attends Confucianist of their [place] [] Believes in Prayer [] Reads Bible or Shinto materials [] There are Spiritual issues to be addressed Tumbling Instructor Interventions [] Prayer [] Active listening [] Non-anxious presence [] Spiritual/emotional support [] Crisis/trauma care [] Spiritual counseling [] Bereavement support [] Provided bereavement packet [] Provided Bible/devotional materials [] Provided toy/stuffed animal, coloring book to patient or family member [] Provided Communion [] Anointing/[place] [] Salvation [] Completed spiritual assessment [] Other: Impact on Illness or Injury [] Angry [] Fearful [] Anxious [] Often cries [] Exhaustion [] Unable to work [] Unable to attend taoist [] Unable to walk/stand [] Unable to read [] Unable to drive [] Unable to eat/drink [] Unable to sleep [] Unable to be with family [] Patient intubated [] Other: Summary Patient with therapist/staff. Follow up later. Time spent with patient
[2020-11-10] MEDS: FUROsemide 10 mg/mL SDV 2mL 20 MG IVP (15:00)
[2020-11-10] MEDS: metoprolol tartrate 25 mg Tablet PO (15:00)
[2020-11-10] MEDS: dexamethasone 4 mg/mL INJ 6 MG IVP (20:42)
[2020-11-11] VITALS (17 sets, daily range): BP systolic 91–113; BP diastolic 62–77; PULSE 70–108; RESP 16–32; TEMP 36.4–36.8; O2SAT 89–97
--- NOTE | 2020-11-11 05:16 | PC.NURSE ---
Patient rested well this shift, VS stayed WNL, No changes in status to report at this time.
--- NOTE | 2020-11-11 06:00 | XRR_ITS ---
PROCEDURE INFORMATION: Exam: XR Chest Exam date and time: 11/11/2020 6:00 AM Age: 85 years old Clinical indication: Shortness of breath; Additional info: Covid TECHNIQUE: Imaging protocol: XR of the chest. Views: 1 view. COMPARISON: CR XR chest 1V portable [id number] 11/09/2020 6:34 AM FINDINGS: Lungs: Bibasilar pulmonary infiltrates are present especially in the left lung. Allowing for differences in technique there is no significant change. Pleural spaces: Unremarkable. No pleural effusion. No pneumothorax. Heart/Mediastinum: The patient has undergone coronary bypass. The heart is not enlarged. Bones/joints: Unremarkable. XR/XR chest 1V portable [id number] IMPRESSION: Bilateral pulmonary infiltrates unchanged allowing for differences in technique.
[2020-11-11] MEDS: levoFLOXacin 500 mg Tablet PO (06:15)
[2020-11-11] MEDS: piperacillin-tazobactam 3.375 GM in sodium chloride 0.9% (plus) 50 ML IV (06:15)
--- NOTE | 2020-11-11 06:42 | PC.NURSE ---
helped patient to stand to use urinal, noted that patient is needing more assistance with standing, and that patient is not handling the activity as well as he has.
[2020-11-11] MEDS: budesonide 0.5 mg/2 mL Neb INHALATION ×2 (08:47→21:15)
[2020-11-11] MEDS: levalbuterol 0.63 mg/3 mL Neb INHALATION ×3 (08:47→21:15)
[2020-11-11] MEDS: ipratropium 0.5 mg/2.5 mL Neb INHALATION ×3 (08:47→21:15)
[2020-11-11] MEDS: zinc gluconate 50 mg Tablet PO (09:54)
[2020-11-11] MEDS: FUROsemide 40 mg Tablet PO (09:54)
[2020-11-11] MEDS: aspirin 81 mg EC Tablet PO (09:54)
[2020-11-11] MEDS: cetirizine 10 mg Tablet PO (09:54)
[2020-11-11] MEDS: tamsulosin 0.4 mg Capsule PO (09:54)
[2020-11-11] MEDS: dilTIAZem ER (24HR) 120 mg Capsule PO (09:54)
[2020-11-11] MEDS: metoprolol tartrate 50 mg Tablet PO ×2 (09:54→20:29)
[2020-11-11] MEDS: apixaban 5 mg Tablet 2.5 MG PO ×2 (09:55→20:29)
[2020-11-11] MEDS: ascorbic acid 500 mg Tablet PO ×2 (09:55→18:32)
[2020-11-11] MEDS: pantoprazole DR 40 mg Tablet PO (09:55)
[2020-11-11] MEDS: atorvastatin 40 mg Tablet 20 MG PO (09:55)
[2020-11-11] MEDS: benzonatate 100 mg Capsule PO ×3 (09:55→20:29)
--- NOTE | 2020-11-11 13:28 | PC.NUTR ---
Nutrition follow up: PO intakes unclear, as [address] review indicated as 100%, however 4 others missing from EMR. Receiving Ensure Plus TID but unclear if drinking. Recommend to encourage intakes of Ensure Plus and meals/fluids, and to provide meal preferences as appropriate. See full RD assessment for further details.
--- NOTE | 2020-11-11 14:42 | P.PN_ITS ---
Subjective Subjective: Interval history: No acute events overnight. No events on telemetry. Patient's heart rate fairly controlled Medications: Reviewed: Yes Vitals/I&O/Wt Last Vital Signs Temp 98 F 11/11/20 12:00 Pulse 72 11/11/20 12:57 Resp 24 H 11/11/20 12:57 BP 113/77 11/11/20 12:04 Pulse Ox 97 11/11/20 12:57 11/10/20 11/11/20 11/11/20 22:59 06:59 14:59 Intake Total 50 / 100 50 / 150 100 / 100 Output Total 550 / 550 300 / 300 Balance -500 / -450 50 / -400 -200 / -200 Physical Exam Narrative: EXAM NARRATIVE: Physical examination not performed by me please review full exam by medicine colleagues Data : 11/10/20 04:03 11/10/20 04:03 Micro: Microbiology 11/07/20 13:50 Gram Stain - Final Sputum - Expectorated Sputum Sputum Culture - Final Citrobacter koseri A&P Assessment and plan (1) Atrial fibrillation with RVR: -Patient was started on Eliquis 2.5 mg twice a day. Continue metoprolol tartrate 50 mg twice daily and Cardizem 120 mg daily. -Rate well controlled. Status: Acute (2) Congestive heart failure: Heart failure with reduced ejection fraction (LVEF=40%); dilated right ventricle with decreased right ventricular systolic function. -On p.o. Lasix Status: Acute Qualifiers: Heart failure type: biventricular Qualified Code(s): I50.82 - Biventricular heart failure (3) Hypertension: On the lower side but still around 99 Status: Acute Qualifiers: Hypertension type: essential hypertension Qualified Code(s): I10 - Essential (primary) hypertension Additional A&P Information COVID-19 pneumonia Coronary artery disease Moderate mitral and tricuspid valve regurgitation Attestations Medical Necessity Statement*: As per primary team Coding Level of Care Code Acute Yarrow Gatherer for Bala Das Diagnoses Atrial fibrillation with RVR I48.91 Congestive heart failure I50.82 Heart failure type: biventricular Hypertension I10 Hypertension type: essential hypertension
--- NOTE | 2020-11-11 14:44 | P.PN_ITS ---
Subjective Subjective: Interval history: No acute events overnight. Patient has remained on heated high flow. Currently on 35 L 55% saturating 93%. During the day oxygen supplementation improved yrn to 6L HFNC. Heart rate better controlled today. Patient denies any nausea, vomiting, headache. Medications: Reviewed: Yes Vitals/I&O/Wt Last Vital Signs Temp 98 F 11/11/20 12:00 Pulse 72 11/11/20 12:57 Resp 24 H 11/11/20 12:57 BP 113/77 11/11/20 12:04 Pulse Ox 97 11/11/20 12:57 11/10/20 11/11/20 11/11/20 22:59 06:59 14:59 Intake Total 50 / 100 50 / 150 100 / 100 Output Total 550 / 550 300 / 300 Balance -500 / -450 50 / -400 -200 / -200 Physical Exam Narrative: EXAM NARRATIVE: General: No acute distress, AO x3, frail, sick appearing HEENT: PERRLA, pupils bilaterally equal and reactive Chest: Bilateral bronchial breath sounds, coarse crackles present bilaterally over the lung blair, occasional rhonchi present all over the lung blair, equal good air entry bilaterally CVS: S1-S2 irregularly irregular, pansystolic murmur present in fourth intercostal space, left parasternal region, no tachycardia, no gallops, no rubs Abdomen: Soft, nontender, no organomegaly, bowel sounds present Neuro: No focal deficits, no facial deformity, AO x3, power 5/5 in all limbs Data : 11/10/20 04:03 11/10/20 04:03 Micro: Microbiology 11/07/20 13:50 Gram Stain - Final Sputum - Expectorated Sputum Sputum Culture - Final Citrobacter koseri A&P Assessment and plan (1) Acute hypoxemic respiratory failure due to COVID-19: Status: Acute (2) Bacterial pneumonia: Status: Acute (3) Atrial fibrillation with RVR: Status: Acute (4) Congestive heart failure: Status: Acute (5) Right-sided heart failure: Status: Acute (6) ASHD (arteriosclerotic heart disease): Status: Acute (7) Hyperlipidemia: Status: Acute Qualifiers: Hyperlipidemia type: mixed hyperlipidemia Qualified Code(s): E78.2 - Mixed hyperlipidemia (8) Hypertension: Status: Acute Qualifiers: Hypertension type: essential hypertension Qualified Code(s): I10 - Essential (primary) hypertension Additional A&P Information Hypoxia secondary to COVID-19 pneumonia along with possible superadded Citrobacter pneumonia and congestive heart failure: Moderate disease. Improving. Oxygen supplementation keeping saturation over 88%. Dexamethasone 6 mg daily. Remdesivir to finish a 5-day course. Vitamin C, zinc. Ipratropium and Xopenex every 4 hours, budesonide twice daily. Pulmonary toilet with incentive spirometry flutter valve. We will monitor inflammatory markers including ferritin, ESR, CRP, D-dimer, fibrinogen. We will try to hold off on Actemra because of high chance of yue ent having bacterial pneumonia. D-dimer elevated. CTA negative for pulmonary embolism. For now continue with full dose anticoagulation with full dose Lovenox 1 mg/kg body weight every 12 hourly. Will monitor for anemia or blood loss. Procalcitonin elevated, urine Legionella, bacterial antigen, MRSA negative, blood culture negative. Sputum culture consistent with Citrobacter. Continue with Zosyn and Levaquin to finish a 7-day course. Last dose on 11/11/20 Given hypoxia will try to keep patient as negative as possible. Echocardiogram done earlier in the admission shows an EF of 40% with moderately decreased LV systolic function, consistent with right ventricular volume overload, moderately increased right atrial size, moderately increased right ventricular size, moderate MR, moderate TR. We will try to keep patient as negative as possible. Continue with Lasix 40 mg oral daily. Fluid restriction up to 1500 cc. Strict input output charting, daily weights. Atrial Fibrillation with RVR: Converted to sinus rhythm. Blood pressure is better. Continue with metoprolol 50 mg twice daily, Cardizem 120 mg oral daily. Gilmer vas score- 4. Continue Lovenox 60 mg twice daily which will also help with stroke prevention. Coronary artery disease hx of CABG Aspirin 81 mg daily, statin Telemetry. Troponin trend not consistent with acute ischemia ECHO appreciated. Appreciate cardiology recommendations. Elevated LFTs: Resolved. Hx of Post-nasal drip Allergic rhinitis Zyrtec 10 mg PO daily Possible dysphagia ST eval. advance diet as per recommendations. Aspiration precautions Benign prostatic hyperplasia Flomax 0.4 mg PO daily GI ppx Protonix 40 mg PO daily DVT ppx Lovenox 60 mg SQ Q12 Patient's care discussed in detail with his daughter on the phone. All the questions were answered. We discussed unfortunately Mr. Worthington is still requiring a lot of oxygen supplementation which is most likely secondary to a combination of Covid pneumonia, superadded bacterial infection and congestive heart failure. We discussed that it is possible that Mr. Worthington will be in the hospital for couple of weeks while the wait for his oxygen supplementation to calm down. We also discussed possible discharge options if and when his oxygen supplementation trends down. November 11, 2020: Patient's care discussed in detail with her granddaughter at bedside. We discussed that you are able to come down on oxygen supplementation and if continues to improve and the plan will be to discharge him once his oxygen supplementation is around 5 L. Patient complaining of mild neuropathy pain. Plan for the day: Continue with antibiotics for Citrobacter pneumonia with last dose of zosyn today. C/w levoflox for 3 more dose. Wean O2 for keeping saturation over 88%. continue with dexamethasone and nebulization along with incentive spirometry and flutter valve. Out of bed to chair. Starting gabapentin 100 mg 3 times a day. Attestations 2 Medical Necessity Statement*: Requires further hospitalization for management of hypoxia 2/2 covid 19 and superadded bacterial pna, chf Time Spent in Patient Care: Greater than 35 minutes (>than 50% of time spent in counselling and/or direct pt care on unit) . Coding Level of Care Code Acute Dimension Warehouse Supervisor for [facility] Diagnoses Acute hypoxemic respiratory failure due to COVID-19 U07.1; J96.01 Bacterial pneumonia J15.9 Atrial fibrillation with RVR I48.91 Congestive heart failure I50.9 Right-sided heart failure I50.810 ASHD (arteriosclerotic heart disease) I25.10 Hyperlipidemia E78.2 Hyperlipidemia type: mixed hyperlipidemia Hypertension I10 Hypertension type: essential hypertension
[2020-11-11] MEDS: gabapentin 100 mg Capsule PO (18:32)
[2020-11-11 19:01] LABS: Basophils % 0.1 %; Hematocrit 39.6 % (42.0-52.0); Hemoglobin 13.4 g/dL (11.7-16.6); Lymphocytes # 0.8 10^3/uL (0.8-4.8); Lymphocytes % 8.7 %; Mean Corpuscular HGB Conc 33.8 g/dL (30.0-36.0); Mean Corpuscular Hemoglobin 31.8 pg (28.0-34.0); Mean Corpuscular Volume 94.1 fl (80-94); Mean Platelet Volume 11.8 fL (7.4-10.4); Monocytes # 0.8 10^3/uL (0.2-0.9); Monocytes % 8.7 %; Neutrophils # 7.68 10^3/uL (1.8-7.7); Neutrophils % 81.9 %; Nucleated Red Blood Cells % 0 %; Platelet Count 263 10^3/cmm (130-400); Red Blood Count 4.21 10^6/uL (4.1-5.3); Red Cell Distribution Width 13.6 % (12.1-15.1); White Blood Count 9.4 10^3/uL (4.0-10.0)
[2020-11-11 19:53] LABS: Alanine Aminotransferase 25 U/L (0-41); Alkaline Phosphatase 65 IU/L (40-130); Anion Gap 14.5 (5-19); Aspartate Amino Transferase 20 U/L (0-40); Blood Urea Nitrogen 53 mg/dL (8-23); Calcium 8.5 mg/dL (8.5-10.5); Carbon Dioxide 33 mmol/L (22-29); Chloride 96 mmol/L (98-107); Creatinine Clr Calc Pharmacy 45.1814; Globulin 3.5 g/dL (1.3-4.6); Glucose 142 mg/dL (65-115); Osmolality Calculated 307 mOsm/kg (285-295); Potassium 3.5 mmol/L (3.5-5.1); Sodium 140 mmol/L (136-145); Total Bilirubin 0.7 mg/dL (0.15-1.2); Total Protein 6.5 g/dL (6.6-8.7)
[2020-11-11 20:00] LABS: Procalcitonin 0.11 ng/mL (0-0.5)
[2020-11-11] MEDS: dexamethasone 4 mg/mL INJ 6 MG IVP (20:29)
--- NOTE | 2020-11-11 21:11 | PC.NURSE ---
patient seems to be in better spirits today, patient sat up to bedside to take medications and tolerated well.
[2020-11-12] VITALS (20 sets, daily range): BP systolic 89–119; BP diastolic 55–76; PULSE 75–142; RESP 16–39; TEMP 36.3–36.8; O2SAT 88–97
[2020-11-12] MEDS: levalbuterol 0.63 mg/3 mL Neb INHALATION ×7 (00:22→23:13)
[2020-11-12] MEDS: ipratropium 0.5 mg/2.5 mL Neb INHALATION ×7 (00:22→23:13)
[2020-11-12] MEDS: levoFLOXacin 500 mg Tablet PO (05:20)
[2020-11-12 05:34] LABS: Hematocrit 37.7 % (42.0-52.0); Hemoglobin 12.7 g/dL (11.7-16.6); Lymphocytes # 0.6 10^3/uL (0.8-4.8); Lymphocytes % 6.4 %; Mean Corpuscular HGB Conc 33.7 g/dL (30.0-36.0); Mean Corpuscular Hemoglobin 31.7 pg (28.0-34.0); Mean Platelet Volume 11.8 fL (7.4-10.4); Monocytes # 0.5 10^3/uL (0.2-0.9); Monocytes % 5.4 %; Neutrophils # 7.95 10^3/uL (1.8-7.7); Neutrophils % 87.5 %; Nucleated Red Blood Cells % 0 %; Platelet Count 243 10^3/cmm (130-400); Red Blood Count 4.01 10^6/uL (4.1-5.3); Red Cell Distribution Width 13.6 % (12.1-15.1); White Blood Count 9.1 10^3/uL (4.0-10.0)
[2020-11-12 05:56] LABS: C Reactive Protein 27.4 mg/L (0.0-4.9)
[2020-11-12 06:10] LABS: Alanine Aminotransferase 22 U/L (0-41); Albumin Level 2.9 g/dL (3.5-5.2); Alkaline Phosphatase 60 IU/L (40-130); Anion Gap 10.7 (5-19); Aspartate Amino Transferase 19 U/L (0-40); Blood Urea Nitrogen 57 mg/dL (8-23); Calcium 8.4 mg/dL (8.5-10.5); Carbon Dioxide 36 mmol/L (22-29); Chloride 97 mmol/L (98-107); Creatinine Clr Calc Pharmacy 45.1814; Globulin 3.2 g/dL (1.3-4.6); Glucose 186 mg/dL (65-115); Osmolality Calculated 311 mOsm/kg (285-295); Potassium 3.7 mmol/L (3.5-5.1); Sodium 140 mmol/L (136-145); Total Bilirubin 0.6 mg/dL (0.15-1.2); Total Protein 6.1 g/dL (6.6-8.7)
[2020-11-12 06:46] LABS: Erythrocyte Sedimentation Rate 54 mm/hr (0-10)
[2020-11-12] MEDS: budesonide 0.5 mg/2 mL Neb INHALATION ×2 (07:43→20:09)
[2020-11-12] MEDS: zinc gluconate 50 mg Tablet PO (08:37)
[2020-11-12] MEDS: dilTIAZem ER (24HR) 120 mg Capsule PO (08:38)
[2020-11-12] MEDS: FUROsemide 40 mg Tablet PO (08:38)
[2020-11-12] MEDS: aspirin 81 mg EC Tablet PO (08:38)
[2020-11-12] MEDS: tamsulosin 0.4 mg Capsule PO (08:38)
[2020-11-12] MEDS: pantoprazole DR 40 mg Tablet PO (08:38)
[2020-11-12] MEDS: benzonatate 100 mg Capsule PO ×3 (08:38→20:48)
[2020-11-12] MEDS: gabapentin 100 mg Capsule PO ×2 (08:38→17:42)
[2020-11-12] MEDS: atorvastatin 40 mg Tablet 20 MG PO (08:38)
[2020-11-12] MEDS: cetirizine 10 mg Tablet PO (08:38)
[2020-11-12] MEDS: apixaban 5 mg Tablet 2.5 MG PO ×2 (08:41→20:25)
[2020-11-12] MEDS: metoprolol tartrate 50 mg Tablet PO ×2 (08:41→20:48)
--- NOTE | 2020-11-12 09:57 | PM.PN ---
Subjective Subjective: Interval history: This morning on examination patient lying comfortably in bed. Has been turned down to 4 L oxygen supplementation, saturating 94%. Though he does desaturate to mid 80s on minimal ambulation requiring up to 6 to 8 L. States he is feeling better though is extremely weak and is worried however he take care of himself once he goes home. Asking if he can go to a group home. Denies any nausea, vomiting, headache. States he is feeling horrible because of the weakness. Medications: Reviewed: Yes Vitals/I&O/Wt Last Vital Signs Temp 97.4 F L 11/12/20 07:56 Pulse 78 11/12/20 07:56 Resp 22 H 11/12/20 07:56 BP 103/64 11/12/20 07:56 Pulse Ox 96 11/12/20 07:56 11/11/20 11/12/20 11/12/20 22:59 06:59 14:59 Intake Total 0 / 100 230 / 330 Output Total 550 / 850 150 / 1000 Balance -550 / -750 80 / -670 Physical Exam Narrative: EXAM NARRATIVE: General: No acute distress, AO x3, frail, sick appearing HEENT: PERRLA, pupils bilaterally equal and reactive Chest: Bilateral bronchial breath sounds, coarse crackles present bilaterally over the lung blair, occasional rhonchi present all over the lung blair, equal good air entry bilaterally CVS: S1-S2 irregularly irregular, pansystolic murmur present in fourth intercostal space, left parasternal region, no tachycardia, no gallops, no rubs Abdomen: Soft, nontender, no organomegaly, bowel sounds present Neuro: No focal deficits, no facial deformity, AO x3, power 5/5 in all limbs Data : 11/12/20 04:53 11/12/20 04:53 A&P Assessment and plan (1) Acute hypoxemic respiratory failure due to COVID-19: Status: Acute (2) Bacterial pneumonia: Status: Acute (3) Atrial fibrillation with RVR: Status: Acute (4) Congestive heart failure: Status: Acute Qualifiers: Heart failure type: biventricular Qualified Code(s): I50.82 - Biventricular heart failure (5) Right-sided heart failure: Status: Acute (6) ASHD (arteriosclerotic heart disease): Status: Acute (7) Hyperlipidemia: Status: Acute Qualifiers: Hyperlipidemia type: mixed hyperlipidemia Qualified Code(s): E78.2 - Mixed hyperlipidemia (8) Hypertension: Status: Acute Qualifiers: Hypertension type: essential hypertension Qualified Code(s): I10 - Essential (primary) hypertension Additional A&P Information Hypoxia secondary to COVID-19 pneumonia along with possible superadded Citrobacter pneumonia and congestive heart failure: Moderate disease. Improving. Oxygen supplementation keeping saturation over 88%. Dexamethasone 6 mg daily. Remdesivir to finish a 5-day course. Vitamin C, zinc. Ipratropium and Xopenex every 4 hours, budesonide twice daily. Pulmonary toilet with incentive spirometry flutter valve. We will monitor inflammatory markers including ferritin, ESR, CRP, D-dimer, fibrinogen. We will try to hold off on Actemra because of high chance of patient having bacterial pneumonia. D-dimer elevated. CTA negative for pulmonary embolism. For now continue with full dose anticoagulation with full dose Lovenox 1 mg/kg body weight every 12 hourly. Will monitor for anemia or blood loss. Procalcitonin elevated, urine Legionella, bacterial antigen, MRSA negative, blood culture negative. Sputum culture consistent with Citrobacter. Continue with Zosyn and Levaquin to finish a 7-day course. Given hypoxia will try to keep patient as negative as possible. Echocardiogram done earlier in the admission shows an EF of 40% with moderately decreased LV systolic function, consistent with right ventricular volume overload, moderately increased right atrial size, moderately increased right ventricular size, moderate MR, moderate TR. We will try to keep patient as negative as possible. Continue with Lasix 40 mg oral daily. Fluid restriction up to 1500 cc. Strict input output charting, daily weights. Atrial Fibrillation with RVR: Converted to sinus rhythm. Blood pressure is better. Continue with metoprolol 50 mg twice daily, Cardizem 120 mg oral daily. Gilmer vas score- 4. Continue Lovenox 60 mg twice daily which will also help with stroke prevention. Coronary artery disease hx of CABG Aspirin 81 mg daily, statin Telemetry. Troponin trend not consistent with acute ischemia ECHO appreciated. Appreciate cardiology recommendations. Elevated LFTs: Resolved. Hx of Post-nasal drip Allergic rhinitis Zyrtec 10 mg PO daily Possible dysphagia ST eval. advance diet as per recommendations. Aspiration precautions Benign prostatic hyperplasia Flomax 0.4 mg PO daily GI ppx Protonix 40 mg PO daily DVT ppx Lovenox 60 mg SQ Q12 Patient's care discussed in detail with his daughter on the phone. All the questions were answered. We discussed unfortunately Mr. Worthington is still requiring a lot of oxygen supplementation which is most likely secondary to a combination of Covid pneumonia, superadded bacterial infection and congestive heart failure. We discussed that it is possible that Mr. Worthington will be in the hospital for couple of weeks while the wait for his oxygen supplementation to calm down. We also discussed possible discharge options if and when his oxygen supplementation trends down. November 12, 2020: Patient states he is feeling extremely weak and thinks would benefit for constant physical therapy and close monitoring for next 2 weeks. Requesting if he can go to a group home and looking forward for [facility] system. Case management has been alerted. Patient and her review from [facility] [place], [place]. Plan for the day: Continue levofloxacin for 3 more days. Continue with I-S, Acapella and physical therapy. Continue to wean down oxygen supplementation keeping saturation over 88%. Attestations Medical Necessity Statement*: Requires further hospitalization for management of hypoxia secondary COVID-19 pneumonia, Citrobacter superadded pneumonia, congestive heart failure in setting of atrial fibrillation and severe physical deconditioning. Time Spent in Patient Care: Greater than 35 minutes (>than 50% of time spent in counselling and/or direct pt care on unit). Coding Level of Care Code Acute Cab Starter for [facility] [facility] Diagnoses Acute hypoxemic respiratory failure due to COVID-19 U07.1; J96.01 Bacterial pneumonia J15.9 Atrial fibrillation with RVR I48.91 Congestive heart failure I50.82 Heart failure type: biventricular Right-sided heart failure I50.810 ASHD (arteriosclerotic heart disease) I25.10 Hyperlipidemia E78.2 Hyperlipidemia type: mixed hyperlipidemia Hypertension I10 Hypertension type: essential hypertension
--- NOTE | 2020-11-12 10:20 | P.PN_ITS ---
Subjective Subjective: Interval history: No acute events overnight. No events on telemetry. Patient's heart rate fairly controlled. some spike this morning before meds. Medications: Reviewed: Yes Vitals/I&O/Wt Last Vital Signs Temp 97.4 F L 11/12/20 07:56 Pulse 78 11/12/20 07:56 Resp 22 H 11/12/20 07:56 BP 103/64 11/12/20 07:56 Pulse Ox 96 11/12/20 07:56 11/11/20 11/12/20 11/12/20 22:59 06:59 14:59 Intake Total 0 / 100 230 / 330 Output Total 550 / 850 150 / 1000 Balance -550 / -750 80 / -670 Physical Exam Narrative: EXAM NARRATIVE: Physical examination not performed by me please review full exam by medicine colleagues Data : 11/12/20 04:53 11/12/20 04:53 A&P Assessment and plan (1) Atrial fibrillation with RVR: -Patient was started on Eliquis 2.5 mg twice a day. Continue metoprolol tartrate 50 mg twice daily and Cardizem 120 mg daily. -Rate well controlled. Status: Acute (2) Congestive heart failure: Heart failure with reduced ejection fraction (LVEF=40%); dilated right ventricle with decreased right ventricular systolic function. -On p.o. Lasix Status: Acute Qualifiers: Heart failure type: biventricular Qualified Code(s): I50.82 - Biventricular heart failure (3) Hypertension: Status: Acute Qualifiers: Hypertension type: essential hypertension Qualified Code(s): I10 - Essential (primary) hypertension Additional A&P Information COVID-19 pneumonia Coronary artery disease Moderate mitral and tricuspid valve regurgitation Attestations Medical Necessity Statement*: As per primary team Coding Level of Care Code Acute Loss Prevention Supervisor for [facility] Diagnoses Atrial fibrillation with RVR I48.91 Congestive heart failure I50.82 Heart failure type: biventricular Hypertension I10 Hypertension type: essential hypertension
--- NOTE | 2020-11-12 11:55 | PC.SOCIAL ---
IMM Update pg 2 of IMM updated and reviewed w/ patient. Copy provided.
--- NOTE | 2020-11-12 13:24 | PC.NURSE ---
patient has visitor at front end ui developer notified Dr Payne patient denied visitor per Dr nair at this time
--- NOTE | 2020-11-12 14:27 | PC.NUTR ---
Nutrition note: Nursing reports pt did not receive Ensure Plus today as ordered. Have clarified with dietary. Pt prefers strawberry flavor per nursing. Will follow up as needed.
[2020-11-12] MEDS: ascorbic acid 500 mg Tablet PO (17:42)
--- NOTE | 2020-11-12 18:34 | PC.NURSE ---
Shift Note Frequent safety and comfort rounds continue. Orders and/or nursing care completed as indicated. Patient monitored for response to intervention and treatment(s). Education provided includes meal supplements ensures. Patient and/or telephone claims representative verbalized understanding. Will continue to monitor.
[2020-11-12] MEDS: dexamethasone 4 mg/mL INJ 6 MG IVP (20:48)
[2020-11-13] VITALS (15 sets, daily range): BP systolic 93–118; BP diastolic 59–74; PULSE 66–112; RESP 18–32; TEMP 19.4–36.6; O2SAT 74–98
[2020-11-13] MEDS: levalbuterol 0.63 mg/3 mL Neb INHALATION ×5 (04:20→20:41)
[2020-11-13] MEDS: ipratropium 0.5 mg/2.5 mL Neb INHALATION ×5 (04:20→20:41)
[2020-11-13 05:53] LABS: Basophils % 0.1 %; Hematocrit 39.1 % (42.0-52.0); Lymphocytes # 0.6 10^3/uL (0.8-4.8); Lymphocytes % 6.3 %; Mean Corpuscular HGB Conc 33.2 g/dL (30.0-36.0); Mean Corpuscular Hemoglobin 31.7 pg (28.0-34.0); Mean Corpuscular Volume 95.4 fl (80-94); Mean Platelet Volume 11.9 fL (7.4-10.4); Monocytes # 0.5 10^3/uL (0.2-0.9); Monocytes % 5.3 %; Neutrophils # 8.08 10^3/uL (1.8-7.7); Neutrophils % 87.6 %; Nucleated Red Blood Cells % 0 %; Platelet Count 233 10^3/cmm (130-400); Red Cell Distribution Width 13.6 % (12.1-15.1); White Blood Count 9.2 10^3/uL (4.0-10.0)
[2020-11-13 06:20] LABS: Alanine Aminotransferase 21 U/L (0-41); Alkaline Phosphatase 61 IU/L (40-130); Aspartate Amino Transferase 16 U/L (0-40); Blood Urea Nitrogen 62 mg/dL (8-23); Calcium 8.7 mg/dL (8.5-10.5); Carbon Dioxide 39 mmol/L (22-29); Chloride 98 mmol/L (98-107); Globulin 3.3 g/dL (1.3-4.6); Glucose 161 mg/dL (65-115); Osmolality Calculated 315 mOsm/kg (285-295); Sodium 142 mmol/L (136-145); Total Bilirubin 0.6 mg/dL (0.15-1.2); Total Protein 6.3 g/dL (6.6-8.7)
[2020-11-13] MEDS: levoFLOXacin 500 mg Tablet PO (06:24)
[2020-11-13] MEDS: zinc gluconate 50 mg Tablet PO (08:23)
[2020-11-13] MEDS: apixaban 5 mg Tablet 2.5 MG PO ×2 (08:23→20:03)
[2020-11-13] MEDS: pantoprazole DR 40 mg Tablet PO (08:24)
[2020-11-13] MEDS: benzonatate 100 mg Capsule PO ×3 (08:24→20:03)
[2020-11-13] MEDS: aspirin 81 mg EC Tablet PO (08:24)
[2020-11-13] MEDS: cetirizine 10 mg Tablet PO (08:24)
[2020-11-13] MEDS: gabapentin 100 mg Capsule PO ×2 (08:25→17:38)
[2020-11-13] MEDS: tamsulosin 0.4 mg Capsule PO (08:25)
[2020-11-13] MEDS: ascorbic acid 500 mg Tablet PO ×2 (08:25→17:38)
[2020-11-13] MEDS: dilTIAZem ER (24HR) 120 mg Capsule PO (08:25)
[2020-11-13] MEDS: FUROsemide 40 mg Tablet PO (08:25)
[2020-11-13] MEDS: atorvastatin 40 mg Tablet 20 MG PO (08:25)
[2020-11-13] MEDS: metoprolol tartrate 50 mg Tablet PO ×2 (08:30→20:03)
[2020-11-13] MEDS: budesonide 0.5 mg/2 mL Neb INHALATION ×2 (08:50→20:40)
[2020-11-13] MEDS: dexamethasone 4 mg/mL INJ 6 MG IVP (19:51)
--- NOTE | 2020-11-13 21:38 | P.PN_ITS ---
Subjective Subjective: Interval history: States he is doing all right. Has not been very ambulatory. Feels deconditioned. Desaturated with exertion. Took a while to bring up saturation and oxygen flow had to be increased to 6 L. Vitals/I&O/Wt Last Vital Signs Temp 98 F 11/13/20 19:48 Pulse 85 11/13/20 19:48 Resp 32 H 11/13/20 19:48 BP 94/59 11/13/20 19:48 Pulse Ox 88 L 11/13/20 19:48 11/13/20 11/13/20 11/13/20 06:59 14:59 22:59 Intake Total 240 / 1130 2 2 Output Total 300 / 300 750 / 750 Balance -60 / 830 2 / 2 -750 / -748 Physical Exam Const: COMMON NORMALS: no acute distress, patient oriented x3 and alert GENERAL APPEARANCE: cooperative and frail appearing ORIENTATION/CONSCIOUSNESS: Yes awake HENMT: COMMON NORMALS: oropharynx normal Resp: COMMON NORMALS: normal respiratory effort AUSCULTATION: diminished lung sounds Cardio: COMMON NORMALS: regular rhythm, S1 normal heart sound present, S2 normal heart sound present and No murmurs present (Cardio) RHYTHM: regular rhythm HEART SOUNDS: S1 normal heart sound present and S2 normal heart sound present GI: COMMON NORMALS: Normal to inspection, nondistended, normoactive bowel sounds present, Soft to palpation and non-tender PALPATION: Yes Soft to p alpation Extremity: COMMON NORMALS: no joint enlargement and no pedal edema Neuro: COMMON NORMALS: patient oriented x3 and moves all extremities SENSORIUM/ORIENTATION: Yes alert Skin: COMMON NORMALS: no rashes or lesions noted GENERAL SKIN EXAM: no rashes or lesions noted Data : 11/13/20 05:20 11/13/20 05:20 A&P Assessment and plan (1) Acute hypoxemic respiratory failure due to COVID-19: Gradually improving. Wean down oxygen requirement. He does have complication with chronic/recurrent aspiration it appears. Reassessed by speech therapy today. Noted not doing well with any consistency liquid. As per condition we will try putting thick and see if he tolerates, and whether he may accept continue with it may be another question. Continue aspiration precautions, ST follow-up. Continue to wean oxygen as tolerating. Wean down steroid. Continues on Eliquis. Status: Acute (2) Bacterial pneumonia: Levaquin Status: Acute (3) Atrial fibrillation with RVR: Continue rate control strategy. Appreciate cardiology recommendations. Continue anticoagulation. Status: Acute (4) Congestive heart failure: Continue p.o. Lasix. Status: Acute Qualifiers: Heart failure type: biventricular Qualified Code(s): I50.82 - Biventricular heart failure (5) Right-sided heart failure: Status: Acute (6) ASHD (arteriosclerotic heart disease): Status: Acute (7) Hyperlipidemia: Status: Acute Qualifiers: Hyperlipidemia type: mixed hyperlipidemia Qualified Code(s): E78.2 - Mixed hyperlipidemia (8) Hypertension: Status: Acute Qualifiers: Hypertension type: essential hypertension Qualified Code(s): I10 - Essential (primary) hypertension (9) Dysphagia: Dysphagia level 1 diet, pudding thick liquids, aspiration precautions. Continue ST follow-up. Appreciate recommendations. Status: Acute Additional A&P Information Elevated LFTs: Resolved. Hx of Post-nasal drip: Allergic rhinitis. Zyrtec 10 mg PO daily Benign prostatic hyperplasia Flomax 0.4 mg PO daily Attestations Medical Necessity Statement*: Continue admission for assessment management of hypoxia following severe COVID-19 pneumonia, superimposed bacterial pneumonia, dysphagia and concern for recurrent microaspiration. Coding Level of Care Code Acute Packing And Stamping Machine Operator for [facility] Diagnoses Acute hypoxemic respiratory failure due to COVID-19 U07.1; J96.01 Bacterial pneumonia J15.9 Atrial fibrillation with RVR I48.91 Congestive heart failure I50.82 Heart failure type: biventricular Right-sided heart failure I50.810 ASHD (arteriosclerotic heart disease) I25.10 Hyperlipidemia E78.2 Hyperlipidemia type: mixed hyperlipidemia Hypertension I10 Hypertension type: essential hypertension Dysphagia R13.10
[2020-11-14] VITALS (17 sets, daily range): BP systolic 88–126; BP diastolic 54–72; PULSE 65–126; RESP 17–30; TEMP 36.3–36.4; O2SAT 87–96
[2020-11-14] MEDS: ipratropium 0.5 mg/2.5 mL Neb INHALATION ×7 (00:20→23:10)
[2020-11-14] MEDS: levalbuterol 0.63 mg/3 mL Neb INHALATION ×7 (00:20→23:10)
[2020-11-14 05:26] LABS: Basophils % 0.1 %; Hematocrit 42.9 % (42.0-52.0); Hemoglobin 13.6 g/dL (11.7-16.6); Lymphocytes # 0.5 10^3/uL (0.8-4.8); Lymphocytes % 6.1 %; Mean Corpuscular HGB Conc 31.7 g/dL (30.0-36.0); Mean Corpuscular Hemoglobin 31.8 pg (28.0-34.0); Mean Corpuscular Volume 100.2 fl (80-94); Monocytes # 0.3 10^3/uL (0.2-0.9); Neutrophils # 7.86 10^3/uL (1.8-7.7); Neutrophils % 90.3 %; Nucleated Red Blood Cells % 0 %; Platelet Count 189 10^3/cmm (130-400); Red Blood Count 4.28 10^6/uL (4.1-5.3); White Blood Count 8.7 10^3/uL (4.0-10.0)
[2020-11-14 05:34] LABS: Blood Urea Nitrogen 61 mg/dL (8-23); Calcium 8.8 mg/dL (8.5-10.5); Carbon Dioxide 35 mmol/L (22-29); Chloride 98 mmol/L (98-107); Glucose 179 mg/dL (65-115); Osmolality Calculated 312 mOsm/kg (285-295); Sodium 140 mmol/L (136-145)
[2020-11-14 05:37] LABS: C Reactive Protein 21.3 mg/L (0.0-4.9)
[2020-11-14 05:41] LABS: Anion Gap 11.3 (5-19); Potassium 4.3 mmol/L (3.5-5.1)
[2020-11-14 06:11] LABS: Erythrocyte Sedimentation Rate 61 mm/hr (0-10)
[2020-11-14] MEDS: levoFLOXacin 500 mg Tablet PO (06:28)
[2020-11-14] MEDS: metoprolol tartrate 50 mg Tablet PO ×2 (08:33→20:27)
[2020-11-14] MEDS: benzonatate 100 mg Capsule PO ×3 (08:33→20:27)
[2020-11-14] MEDS: atorvastatin 40 mg Tablet 20 MG PO (08:33)
[2020-11-14] MEDS: aspirin 81 mg EC Tablet PO (08:34)
[2020-11-14] MEDS: FUROsemide 40 mg Tablet PO (08:34)
[2020-11-14] MEDS: zinc gluconate 50 mg Tablet PO (08:34)
[2020-11-14] MEDS: tamsulosin 0.4 mg Capsule PO (08:34)
[2020-11-14] MEDS: cetirizine 10 mg Tablet PO (08:35)
[2020-11-14] MEDS: dilTIAZem ER (24HR) 120 mg Capsule PO (08:35)
[2020-11-14] MEDS: ascorbic acid 500 mg Tablet PO ×2 (08:36→16:51)
[2020-11-14] MEDS: apixaban 5 mg Tablet 2.5 MG PO ×2 (08:36→20:27)
[2020-11-14] MEDS: pantoprazole DR 40 mg Tablet PO (08:36)
[2020-11-14] MEDS: dexamethasone 4 mg/mL INJ 3 MG IVP (08:37)
[2020-11-14] MEDS: gabapentin 100 mg Capsule PO ×2 (08:37→16:51)
[2020-11-14] MEDS: budesonide 0.5 mg/2 mL Neb INHALATION ×2 (08:58→19:50)
--- NOTE | 2020-11-14 14:32 | P.PN_ITS ---
Subjective Subjective: Interval history: He is doing about the same today. Noticed that when he is drinking upright through the straw he has quite a bit fewer secretions to clear out later. Encouraged him to continue strict aspiration precautions. Discussed with him we changed his liquid consistency to pudding thick. Vitals/I&O/Wt Last Vital Signs Temp 98 F 11/13/20 19:48 Pulse 102 H 11/14/20 12:04 Resp 20 H 11/14/20 12:04 BP 126/72 11/14/20 08:00 Pulse Ox 89 L 11/14/20 12:04 11/13/20 11/14/20 11/14/20 22:59 06:59 14:59 Intake Total 240 / 242 240 / 482 240 / 240 Output Total 750 / 750 500 / 1250 Balance -510 / -508 -260 / -768 240 / 240 Physical Exam Const: COMMON NORMALS: no acute distress, patient oriented x3 and alert GENERAL APPEARANCE: cooperative and frail appearing ORIENTATION/CONSC IOUSNESS: Yes awake HENMT: COMMON NORMALS: oropharynx normal Resp: COMMON NORMALS: normal respiratory effort AUSCULTATION: diminished lung sounds Cardio: COMMON NORMALS: regular rhythm, S1 normal heart sound present, S2 normal heart sound present and No murmurs present (Cardio) RHYTHM: regular rhythm HEART SOUNDS: S1 normal heart sound present and S2 normal heart sound present GI: COMMON NORMALS: Normal to inspection, nondistended, normoactive bowel sounds present, Soft to palpation and non-tender PALPATION: Yes Soft to palpation Extremity: COMMON NORMALS: no joint enlargement and no pedal edema Neuro: COMMON NORMALS: patient oriented x3 and moves all extremities SENSORIUM/ORIENTATION: Yes alert Skin: COMMON NORMALS: no rashes or lesions noted GENERAL SKIN EXAM: no rashes or lesions noted Data : 11/14/20 04:48 11/14/20 04:59 A&P Assessment and plan (1) Acute hypoxemic respiratory failure due to COVID-19: We had quite extensive discussion with him and later with his daughter over the phone. I discussed concern regarding slow improvement of hypoxia, persistent pneumonia secondary to recurrent aspiration events. We have downgraded his liquid consistency to pudding thick. However, even this may not guarantee that he may not aspirate recurrently leading to recurrent lung injury, pneumonia, or may not have a life-threatening aspiration event. Both verbalized understanding. Discussed additional options with consideration of tracheostomy in case pursuing more aggressive medical care, alternatively continuation of current regimen with attempted aspiration precautions, dysphagia diet, or alternatively more comfort based approach with liberalized diet consistency for comfort. He feels this is a very large decision, would like to think on it. Discussed with his daughter as well who will similarly further revisit with him regarding his thoughts, as well as there advanced care wishes. Otherwise continue de-escalate oxygen support as tolerating. We will attempt to stop steroid. Continue aspiration precautions, ST follow-up. Continues on Eliquis. Status: Acute (2) Bacterial pneumonia: Levaquin Status: Acute (3) Atrial fibrillation with RVR: Continue rate control strategy. Appreciate cardiology recommendations. Continue anticoagulation. Status: Acute (4) Congestive heart failure: Continue p.o. Lasix. Status: Acute Qualifiers: Heart failure type: biventricular Qualified Code(s): I50.82 - Biventricular heart failure (5) Right-sided heart failure: Status: Acute (6) ASHD (arteriosclerotic heart disease): Status: Acute (7) Hyperlipidemia: Status: Acute Qualifiers: Hyperlipidemia type: mixed hyperlipidemia Qualified Code(s): E78.2 - Mixed hyperlipidemia (8) Hypertension: Status: Acute Qualifiers: Hypertension type: essential hypertension Qualified Code(s): I10 - Essential (primary) hypertension (9) Dysphagia: Dysphagia level 1 diet, pudding thick liquids, aspiration precautions. Continue ST follow-up. Appreciate recommendations. Status: Acute Additional A&P Information Elevated LFTs: Resolved. Hx of Post-nasal drip: Allergic rhinitis. Zyrtec 10 mg PO daily Benign prostatic hyperplasia Flomax 0.4 mg PO daily Attestations Medical Necessity Statement*: Continue admission for assessment of management of ongoing hypoxia with easy desaturation following severe COVID-19 complicated by continued/recurrent aspiration. Coding Level of Care Code Acute Dye Range Feeder for [facility] Exam Comprehensive Diagnoses Acute hypoxemic respiratory failure due to COVID-19 U07.1; J96.01 Bacterial pneumonia J15.9 Atrial fibrillation with RVR I48.91 Congestive heart failure I50.82 Heart failure type: biventricular Right-sided heart failure I50.810 ASHD (arteriosclerotic heart disease) I25.10 Hyperlipidemia E78.2 Hyperlipidemia type: mixed hyperlipidemia Hypertension I10 Hypertension type: essential hypertension Dysphagia R13.10
[2020-11-15] VITALS (18 sets, daily range): BP systolic 97–121; BP diastolic 63–71; PULSE 70–85; RESP 17–34; TEMP 36.6; O2SAT 90–96
[2020-11-15] MEDS: levalbuterol 0.63 mg/3 mL Neb INHALATION ×6 (04:20→23:05)
[2020-11-15] MEDS: ipratropium 0.5 mg/2.5 mL Neb INHALATION ×6 (04:20→23:05)
[2020-11-15 05:16] LABS: Basophils % 0.1 %; Hematocrit 40.1 % (42.0-52.0); Hemoglobin 12.9 g/dL (11.7-16.6); Lymphocytes # 0.7 10^3/uL (0.8-4.8); Lymphocytes % 5.9 %; Mean Corpuscular HGB Conc 32.2 g/dL (30.0-36.0); Mean Corpuscular Hemoglobin 32.3 pg (28.0-34.0); Mean Corpuscular Volume 100.3 fl (80-94); Mean Platelet Volume 11.9 fL (7.4-10.4); Monocytes # 0.8 10^3/uL (0.2-0.9); Monocytes % 7.3 %; Neutrophils # 9.51 10^3/uL (1.8-7.7); Neutrophils % 86.2 %; Nucleated Red Blood Cells % 0 %; Platelet Count 170 10^3/cmm (130-400)
[2020-11-15 05:36] LABS: Blood Urea Nitrogen 59 mg/dL (8-23); Calcium 8.8 mg/dL (8.5-10.5); Carbon Dioxide 37 mmol/L (22-29); Chloride 100 mmol/L (98-107); Glucose 126 mg/dL (65-115); Osmolality Calculated 316 mOsm/kg (285-295); Sodium 144 mmol/L (136-145)
[2020-11-15 05:46] LABS: Anion Gap 11.4 (5-19); Potassium 4.4 mmol/L (3.5-5.1)
--- NOTE | 2020-11-15 06:30 | PC.NURSE ---
Shift Note Frequent safety and comfort rounds continue. Orders and/or nursing care completed as indicated. Patient monitored for response to intervention and treatment(s). Will continue to monitor.
[2020-11-15] MEDS: budesonide 0.5 mg/2 mL Neb INHALATION ×2 (07:30→19:15)
[2020-11-15] MEDS: FUROsemide 40 mg Tablet PO (08:39)
[2020-11-15] MEDS: benzonatate 100 mg Capsule PO ×2 (08:40→14:39)
[2020-11-15] MEDS: dilTIAZem ER (24HR) 120 mg Capsule PO (08:40)
[2020-11-15] MEDS: gabapentin 100 mg Capsule PO (08:40)
[2020-11-15] MEDS: metoprolol tartrate 50 mg Tablet PO ×2 (08:40→22:23)
[2020-11-15] MEDS: apixaban 5 mg Tablet 2.5 MG PO ×2 (08:40→22:20)
[2020-11-15] MEDS: atorvastatin 40 mg Tablet 20 MG PO (08:40)
[2020-11-15] MEDS: pantoprazole DR 40 mg Tablet PO (08:40)
[2020-11-15] MEDS: tamsulosin 0.4 mg Capsule PO (08:40)
[2020-11-15] MEDS: cetirizine 10 mg Tablet PO (08:40)
[2020-11-15] MEDS: zinc gluconate 50 mg Tablet PO (08:40)
[2020-11-15] MEDS: aspirin 81 mg EC Tablet PO (08:40)
[2020-11-15] MEDS: ascorbic acid 500 mg Tablet PO (08:40)
--- NOTE | 2020-11-15 14:46 | PC.NUTR ---
Nutrition note: Increased Magic Cup to TID. Clarified Ensure Plus to be thickened to pudding consistency per RECYCLING SPECIALIST.
--- NOTE | 2020-11-15 20:04 | PM.PN ---
Subjective Subjective: Interval history: This morning he reported doing quite well. Stated that he was doing well with Ensure. Revisiting with him with regards to our discussion from yesterday, after thoughtful consideration he states surgery like tracheostomy would not be on the table. He would rather let things take the natural course. He is, however, interested in other less invasive interventions. Is wanting to continue dysphagia diet, aspiration precautions, working with speech therapy. Discussed our concerns and his condition also with his granddaughter. Per discussion we will obtain additional swallow evaluation. Discussed with patient therapy, tomorrow will undergo fees. We may also trial electrostimulation therapy. Currently ENT not available at the hospital, and due to COVID-19 pandemic no beds have been opened in the surrounding hospitals, and although he is not interested in invasive surgical interventions, we may try to confirm with ENT whether any additional minimally invasive procedures may be available to help him with his protracted swallowing troubles which are making his recovery from COVID-19 so much more difficult. Vitals/I&O/Wt Last Vital Signs Temp 97.8 F 11/15/20 10:56 Pulse 85 11/15/20 17:12 Resp 26 H 11/15/20 17:12 BP 104/65 11/15/20 16:00 Pulse Ox 92 11/15/20 17:12 11/15/20 11/15/20 11/15/20 06:59 14:59 22:59 Intake Total 100 / 780 711 / 711 Output Total 275 / 1000 300 / 300 400 / 700 Balance -175 / -220 411 / 411 -400 / 11 Physical Exam Const: COMMON NORMALS: no acute distress, patient oriented x3 and alert GENERAL APPEARANCE: cooperative and frail appearing ORIENTATION/CONSCIOUSNESS: Yes awake HENMT: COMMON NORMALS: oropharynx normal Resp: COMMON NORMALS: normal respiratory effort AUSCULTATION: diminished lung sounds Cardio: COMMON NORMALS: regular rhythm, S1 normal heart sound present, S2 normal heart sound present and No murmurs present (Cardio) RHYTHM: regular rhythm HEART SOUNDS: S1 normal heart sound present and S2 normal heart sound present GI: COMMON NORMALS: Normal to inspection, nondistended, normoactive bowel sounds present, Soft to palpation and non-tender PALPATION: Yes Soft to palpation Extremity: COMMON NORMALS: no joint enlargement and no pedal edema Neuro: COMMON NORMALS: patient oriented x3 and moves all extremities SENSORIUM/ORIENTATION: Yes alert Skin: COMMON NORMALS: no rashes or lesions noted GENERAL SKIN EXAM: no rashes or lesions noted Data : 11/15/20 04:52 11/15/20 04:52 A&P Assessment and plan (1) Acute hypoxemic respiratory failure due to COVID-19: Worsening hypoxia today, having to return to height at high flow. Requiring up to 45 L, 65% FiO2. Noted aspirating with Ensure today. Holding off additional oral intake tonight as per discussion. Recovered from COVID-19 complicated by recurrent microaspiration events at risk of more aspiration as discussed with him, family. He is confirmed to me following our discussions today as well as to other staff that more invasive surgical interventions including tracheostomy are off the table and he would prefer to allow things to take their natural course. However, he is willing to continue working with speech therapy. Plan for fees tomorrow. Trial of electrostimulation. Once available touch base with ENT whether there may be additional less invasive procedures (laryngoplasty?) Which could be an option for him. This of course is complicated by his generalized weakness and deconditioning following the acute illness. Continue dysphagia diet. Aspiration precautions. Continue PT as tolerating. Wean down oxygen as tolerating. Hold off on restarting systemic steroid. Continues on Eliquis. Status: Acute (2) Bacterial pneumonia: Levaquin Status: Acute (3) Atrial fibrillation with RVR: Continue rate control strategy. Appreciate cardiology recommendations. Continue anticoagulation. Status: Acute (4) Congestive heart failure: Continue p.o. Lasix. Status: Acute Qualifiers: Heart failure type: biventricular Qualified Code(s): I50.82 - Biventricular heart failure (5) Right-sided heart failure: Status: Acute (6) ASHD (arteriosclerotic heart disease): Status: Acute (7) Hyperlipidemia: Status: Acute Qualifiers: Hyperlipidemia type: mixed hyperlipidemia Qualified Code(s): E78.2 - Mixed hyperlipidemia (8) Hypertension: Status: Acute Qualifiers: Hypertension type: essential hypertension Qualified Code(s): I10 - Essential (primary) hypertension (9) Dysphagia: Dysphagia level 1 diet, pudding thick liquids, aspiration precautions. Continue ST follow-up. Appreciate recommendations. Trial of electrostimulation. Additional assessment by fees tomorrow. Once they are available, reach out to ENT to see if any additional minimally invasive interventions may be offered and helpful to his difficult situation. Status: Acute Additional A&P Information Elevated LFTs: Resolved. Hx of Post-nasal drip: Allergic rhinitis. Zyrtec 10 mg PO daily Benign prostatic hyperplasia Flomax 0.4 mg PO daily Attestations Medical Necessity Statement*: Continue admission for assessment of management of hypoxic respite failure with prolonged recovery following severe COVID-19 complicated by recurrent aspiration episodes, worsening hypoxia. Coding Level of Care Code Acute Older Adult Social Work Specialist for [facility] Diagnoses Acute hypoxemic respiratory failure due to COVID-19 U07.1; J96.01 Bacterial pneumonia J15.9 Atrial fibrillation with RVR I48.91 Congestive heart failure I50.82 Heart failure type: biventricular Right-sided heart failure I50.810 ASHD (arteriosclerotic heart disease) I25.10 Hyperlipidemia E78.2 Hyperlipidemia type: mixed hyperlipidemia Hypertension I10 Hypertension type: essential hypertension Dysphagia R13.10
[2020-11-16] VITALS (18 sets, daily range): BP systolic 85–122; BP diastolic 53–79; PULSE 64–108; RESP 17–36; TEMP 36.4; O2SAT 91–98
[2020-11-16] MEDS: ipratropium 0.5 mg/2.5 mL Neb INHALATION ×6 (03:50→23:50)
[2020-11-16] MEDS: levalbuterol 0.63 mg/3 mL Neb INHALATION ×6 (03:50→23:50)
[2020-11-16 04:54] LABS: Basophils % 0.1 %; Eosinophils # 0.1 10^3/uL (0.0-0.8); Eosinophils % 0.7 %; Hematocrit 40.1 % (42.0-52.0); Lymphocytes # 0.7 10^3/uL (0.8-4.8); Lymphocytes % 9.7 %; Mean Corpuscular HGB Conc 32.4 g/dL (30.0-36.0); Mean Corpuscular Hemoglobin 31.7 pg (28.0-34.0); Mean Corpuscular Volume 97.8 fl (80-94); Mean Platelet Volume 12.1 fL (7.4-10.4); Monocytes # 0.6 10^3/uL (0.2-0.9); Monocytes % 7.6 %; Neutrophils # 6.18 10^3/uL (1.8-7.7); Neutrophils % 81.2 %; Nucleated Red Blood Cells % 0 %; Platelet Count 161 10^3/cmm (130-400); White Blood Count 7.6 10^3/uL (4.0-10.0)
[2020-11-16 05:11] LABS: Blood Urea Nitrogen 53 mg/dL (8-23); Calcium 8.9 mg/dL (8.5-10.5); Carbon Dioxide 39 mmol/L (22-29); Chloride 99 mmol/L (98-107); Glucose 109 mg/dL (65-115); Osmolality Calculated 313 mOsm/kg (285-295); Sodium 144 mmol/L (136-145)
[2020-11-16 05:16] LABS: Anion Gap 10.2 (5-19); Potassium 4.2 mmol/L (3.5-5.1)
[2020-11-16] MEDS: budesonide 0.5 mg/2 mL Neb INHALATION ×2 (07:59→19:50)
--- NOTE | 2020-11-16 10:21 | PC.NURSE ---
Pt has refused all medications and has refused vital signs being taken. Pt states I just want to be left alone, no medications. Nurse will continue to monitor
--- NOTE | 2020-11-16 10:57 | PC.SOCIAL ---
IMM Updated Updated pt on Pg 2 IMM. No questions voiced. Provided pt a copy. Initialed, dated, & timed copy in chart.
--- NOTE | 2020-11-16 12:28 | P.PN_ITS ---
Subjective Subjective: Interval history: This morning he had declined to take his medications. Declines additional assessment by FEES or electro stim therapy. With noted progressed/worsened hypoxia today, requiring as high as 100 percent FiO2. He is awake, alert, calm. Not in distress with oxygen supplementation. He quite clearly states he does not want additional interventions and does not want to revisit again for additional assessments. On discussion of goals of care he states he would not want intubation or mechanical ventilation. On discussion of CODE STATUS he states he would not want CPR, intubation or life support. He is wanting to proceed with comfort measures. I discussed also what he has been relayed to me with his daughter Elodia Weeks. She was going to come over here with his for a visit today. Vitals/I&O/Wt Last Vital Signs Temp 97.8 F 11/15/20 10:56 Pulse 105 H 11/16/20 11:12 Resp 26 H 11/16/20 11:06 BP 93/57 11/16/20 04:00 Pulse Ox 92 11/16/20 11:06 11/15/20 11/16/20 11/16/20 22:59 06:59 14:59 Intake Total 50 / 761 50 / 811 Output Total 775 / 1075 200 / 200 Balance -725 / -314 50 / -264 -200 / -200 Physical Exam Const: COMMON NORMALS: no acute distress, patient oriented x3 and alert GENERAL APPEARANCE: cooperative and frail appearing ORIENTATION/CON SCIOUSNESS: Yes awake HENMT: COMMON NORMALS: oropharynx normal Resp: COMMON NORMALS: normal respiratory effort AUSCULTATION: diminished lung sounds Cardio: COMMON NORMALS: regular rhythm, S1 normal heart sound present, S2 normal heart sound present and No murmurs present (Cardio) RHYTHM: regular rhythm HEART SOUNDS: S1 normal heart sound present and S2 normal heart sound present GI: COMMON NORMALS: Normal to inspection, nondistended, normoactive bowel sounds present, Soft to palpation and non-tender PALPATION: Yes Soft to palpation Extremity: COMMON NORMALS: no joint enlargement and no pedal edema Neuro: COMMON NORMALS: patient oriented x3 and moves all extremities SENSORIUM/ORIENTATION: Yes alert Skin: COMMON NORMALS: no rashes or lesions noted GENERAL SKIN EXAM: no rashes or lesions noted Data : 11/16/20 04:10 09/16/21 04:10 A&P Assessment and plan (1) Acute hypoxemic respiratory failure due to COVID-19: Persistent/recurrent episodes of aspiration. Appears to stay had add itional episode after drinking Ensure with worsening of hypoxia. This morning declined to take his medications. Had a detailed discussion with speech therapist, but declined additional assessment by fees or electro-stim therapy. Discussed his wishes to avoid additional aggressive medical treatments with his daughter. They are going to further discuss with the rest of the family, planning she also comments visit him with his . They will consider in case he is to discharge with comfort care whether he may return home as opposed to senior care. Case management is aware and will be following up as well. S/p severe COVID-19 complicated by recurrent aspiration events. This of course is complicated by his generalized weakness and deconditioning following the acute illness. Status: Acute (2) Bacterial pneumonia: Levaquin Status: Acute (3) Atrial fibrillation with RVR: Continue rate control strategy. Appreciate cardiology recommendations. Continue anticoagulation. Status: Acute (4) Congestive heart failure: Continue p.o. Lasix. Status: Acute Qualifiers: Heart failure type: biventricular Qualified Code(s): I50.82 - Biventricular heart failure (5) Right-sided heart failure: Status: Acute (6) ASHD (arteriosclerotic heart disease): Status: Acute (7) Hyperlipidemia: Status: Acute Qualifiers: Hyperlipidemia type: mixed hyperlipidemia Qualified Code(s): E78.2 - Mixed hyperlipidemia (8) Hypertension: Status: Acute Qualifiers: Hypertension type: essential hypertension Qualified Code(s): I10 - Essential (primary) hypertension (9) Dysphagia: Dysphagia level 1 diet, pudding thick liquids, aspiration precautions. Continue ST follow-up. Appreciate recommendations. Trial of electrostimulation. Additional assessment by fees tomorrow. Once they are available, reach out to ENT to see if any additional minimally invasive interv entions may be offered and helpful to his difficult situation. Status: Acute Additional A&P Information Elevated LFTs: Resolved. Hx of Post-nasal drip: Allergic rhinitis. Zyrtec 10 mg PO daily Benign prostatic hyperplasia Flomax 0.4 mg PO daily Attestations Medical Necessity Statement*: Continue admission for assessment management of hypoxic respite failure, continued goals of care determination as well as post hospital planning and arrangements. Coding Level of Care Code Acute Peanut Roaster for [facility] Diagnoses Acute hypoxemic respiratory failure due to COVID-19 U07.1; J96.01 Bacterial pneumonia J15.9 Atrial fibrillation with RVR I48.91 Congestive heart failure I50.82 Heart failure type: biventricular Right-sided heart failure I50.810 ASHD (arteriosclerotic heart disease) I25.10 Hyperlipidemia E78.2 Hyperlipidemia type: mixed hyperlipidemia Hypertension I10 Hypertension type: essential hypertension Dysphagia R13.10
--- NOTE | 2020-11-16 16:04 | PC.OT ---
OT TREATMENT HELD PATIENT AND FAMILY ARE CONSIDERING COMFORT CARE. WILL CHECK ON PATIENT TOMORROW.
--- NOTE | 2020-11-16 17:47 | PC.NURSE ---
pt continues to refuse medications, food, and vital signs often. Pt has taken oxygen off twice today. Pt educated on risks of increased hypoxia and possible with out oxygen. Pt agreeable to wear oxygen until family comes in tomorrow. Pt is leaning toward comfort care at this time, but wants to wait for family to be here tomorrow.
[2020-11-16] MEDS: metoprolol tartrate 50 mg Tablet PO (21:22)
[2020-11-16] MEDS: apixaban 5 mg Tablet 2.5 MG PO (21:22)
[2020-11-17] VITALS (11 sets, daily range): BP systolic 102–117; BP diastolic 58–77; PULSE 75–104; RESP 18–27; TEMP 36.6; O2SAT 89–99
[2020-11-17 03:07] LABS: Basophils % 0.1 %; Eosinophils # 0.1 10^3/uL (0.0-0.8); Hematocrit 39.7 % (42.0-52.0); Hemoglobin 12.9 g/dL (11.7-16.6); Lymphocytes # 0.7 10^3/uL (0.8-4.8); Lymphocytes % 9.2 %; Mean Corpuscular HGB Conc 32.5 g/dL (30.0-36.0); Mean Corpuscular Hemoglobin 31.6 pg (28.0-34.0); Mean Corpuscular Volume 97.3 fl (80-94); Mean Platelet Volume 11.7 fL (7.4-10.4); Monocytes # 0.7 10^3/uL (0.2-0.9); Monocytes % 8.4 %; Nucleated Red Blood Cells % 0 %; Platelet Count 145 10^3/cmm (130-400); Red Blood Count 4.08 10^6/uL (4.1-5.3); Red Cell Distribution Width 13.9 % (12.1-15.1); White Blood Count 7.9 10^3/uL (4.0-10.0)
[2020-11-17 03:19] LABS: Blood Urea Nitrogen 51 mg/dL (8-23); Calcium 8.7 mg/dL (8.5-10.5); Carbon Dioxide 36 mmol/L (22-29); Chloride 101 mmol/L (98-107); Glucose 116 mg/dL (65-115); Osmolality Calculated 311 mOsm/kg (285-295); Sodium 143 mmol/L (136-145)
[2020-11-17] MEDS: ipratropium 0.5 mg/2.5 mL Neb INHALATION ×2 (04:10→08:03)
[2020-11-17] MEDS: levalbuterol 0.63 mg/3 mL Neb INHALATION ×2 (04:10→08:03)
--- NOTE | 2020-11-17 07:43 | PC.OT ---
OT TREATMENT HELD TODAY THE PATIENT CONSIDERING COMFORT CARE AND WOULD LIKE TO VISIT WITH HIS FAMILY REGARDING THIS.
[2020-11-17] MEDS: budesonide 0.5 mg/2 mL Neb INHALATION (08:03)
[2020-11-17] MEDS: dilTIAZem ER (24HR) 120 mg Capsule PO (09:35)
[2020-11-17] MEDS: gabapentin 100 mg Capsule PO (09:35)
[2020-11-17] MEDS: FUROsemide 40 mg Tablet PO (09:35)
[2020-11-17] MEDS: tamsulosin 0.4 mg Capsule PO (09:35)
[2020-11-17] MEDS: atorvastatin 40 mg Tablet 20 MG PO (09:35)
[2020-11-17] MEDS: aspirin 81 mg EC Tablet PO (09:35)
[2020-11-17] MEDS: benzonatate 100 mg Capsule PO (09:35)
[2020-11-17] MEDS: ascorbic acid 500 mg Tablet PO (09:36)
[2020-11-17] MEDS: zinc gluconate 50 mg Tablet PO (09:36)
[2020-11-17] MEDS: apixaban 5 mg Tablet 2.5 MG PO (09:43)
[2020-11-17] MEDS: pantoprazole DR 40 mg Tablet PO (09:45)
[2020-11-17] MEDS: metoprolol tartrate 50 mg Tablet PO (09:47)
--- NOTE | 2020-11-17 14:00 | PC.NURSE ---
Notified Physician on pt's decision to go on comfort care measures Pt stated he does not want to prolong and be on oxygen. Pt stated that he wants allow natural to occur. Explained to pt and family on what is going to happen and the medications to be given when in comfort care measures. Pt and children at bedside does not want any more aggressive treatments. Multiple family members are aware on the pt's orientation and awareness of his decision to discontinue heated high flow oxygen and proceed to comfort care. Dr Frank notified.
--- NOTE | 2020-11-17 14:19 | PC.NUTR ---
Nutrition reassessment: Possible change to comfort care pending per chart review. If comfort care measures selected, recommend provide diet as tolerated and per MD discretion. If continuing with current diet order, recommend clarification on safe meals/supplements, as pt appears to have choked on Ensure even when pudding thick per MD notes. If unable to safely consume oral diet and if consistent with goals of care, RD available for nutrition support recommendations as needed. See full RD assessment for further details.
--- NOTE | 2020-11-17 14:31 | P.PN_ITS ---
Subjective Subjective: Interval history: Has been feeling weak. Again states will be wanting to discontinue oxygen, declines any surgery. But wanting to further meet with family members today including wanting to see his son Deny. Understands that discontinuation of aggressive medical care will mean that he will . , daughter and son-in-law at bedside. Vitals/I&O/Wt Last Vital Signs Temp 97.6 F 11/16/20 20:00 Pulse 90 11/17/20 08:10 Resp 22 H 11/17/20 08:04 BP 117/77 11/17/20 07:41 Pulse Ox 93 11/17/20 08:04 11/16/20 11/17/20 11/17/20 22:59 06:59 14:59 Intake Total 50 / 100 50 / 150 474 / 474 Output Total 250 / 750 250 / 1000 100 / 100 Balance -200 / -650 -200 / -850 374 / 374 Physical Exam Const: COMMON NORMALS: no acute distress, patient oriented x3 and alert GENERAL APPEARANCE: cooperative and frail appearing ORIENTATION/CONSCIOUSNESS: Yes awake OTHER: Weak HENMT: COMMON NORMALS: oropharynx normal Resp: COMMON NORMALS: normal respiratory effort AUSCULTATION: rhonchi Cardio: COMMON NORMALS: regular rhythm, S1 normal heart sound present, S2 normal heart sound present and No murmurs present (Cardio) RHYTHM: regular rhythm HEART SOUNDS: S1 normal heart sound present and S2 normal heart sound present GI: COMMON NORMALS: Normal to inspection, nondistended, normoactive bowel sounds present, Soft to palpation and non-tender PALPATION: Yes Soft to palpation Extremity: COMMON NORMALS: no joint enlargement and no pedal edema Neuro: COMMON NORMALS: patient oriented x3 and moves all extremities SENSORIUM/ORIENTATION: Yes alert Skin: COMMON NORMALS: no rashes or lesions noted GENERAL SKIN EXAM: no rashes or lesions noted Data : 11/17/20 02:53 11/17/20 02:53 A&P Assessment and plan (1) Acute hypoxemic respiratory failure due to COVID-19: Persistent hypoxic respiratory failure, requiring slightly less oxygen at 60% FiO2. Generally very weak. High risk of recurrence of aspiration. Again he is very clear about his wishes of not wanting any surgical intervention. He is wanting to take some time to see his family including his son Deny. He then is talking about discontinuation of aggressive medical care and taking off oxygen. His , daughter and son-in-law present during the discussion. Additional family members are coming in today. S/p severe COVID-19 complicated by recurrent aspiration events. This of course is complicated by his generalized weakness and deconditioning following the acute illness. Status: Acute (2) Bacterial pneumonia: Levaquin Status: Acute (3) Atrial fibrillation with RVR: Continue rate control strategy. Appreciate cardiology recommendations. Continue anticoagulation. Status: Acute (4) Congestive heart failure: Continue p.o. Lasix. Status: Acute Qualifiers: Heart failure type: biventricular Qualified Code(s): I50.82 - Biventricular heart failure (5) Right-sided heart failure: Status: Acute (6) ASHD (arteriosclerotic heart disease): Status: Acute (7) Hyperlipidemia: Status: Acute Qualifiers: Hyperlipidemia type: mixed hyperlipidemia Qualified Code(s): E78.2 - Mixed hyperlipidemia (8) Hypertension: Status: Acute Qualifiers: Hypertension type: essential hypertension Qualified Code(s): I10 - Essential (primary) hypertension (9) Dysphagia: Dysphagia level 1 diet, pudding thick liquids, aspiration precautions. Co ntinue ST follow-up. Appreciate recommendations. Trial of electrostimulation. Additional assessment by fees tomorrow. Once they are available, reach out to ENT to see if any additional minimally invasive interventions may be offered and helpful to his difficult situation. Status: Acute Additional A&P Information Elevated LFTs: Resolved. Hx of Post-nasal drip: Allergic rhinitis. Zyrtec 10 mg PO daily Benign prostatic hyperplasia Flomax 0.4 mg PO daily Attestations Medical Necessity Statement*: Continue for now heated high flow oxygen support and supportive care at this time as much as he will allow, pending additional goals of care determination once he is able to meet and spend time with his family. Coding Level of Care Code Acute Airport Security Screener for [facility] Diagnoses Acute hypoxemic respiratory failure due to COVID-19 U07.1; J96.01 Bacterial pneumonia J15.9 Atrial fibrillation with RVR I48.91 Congestive heart failure I50.82 Heart failure type: biventricular Right-sided heart failure I50.810 ASHD (arteriosclerotic heart disease) I25.10 Hyperlipidemia E78.2 Hyperlipidemia type: mixed hyperlipidemia Hypertension I10 Hypertension type: essential hypertension Dysphagia R13.10
--- NOTE | 2020-11-17 14:53 | PC.CHAP ---
Pastoral Care Encounter/Spiritual Assessment Type of Contact [] Declined lining printer visit [] Patient/Family/Request visit [] Outpatient visit [xx] Follow-up visit [] Physician referral [] Code/Alert [xx] Routine visit [] Staff referral [] Actively dying [] Patient sleeping [] Family support [] [] Out of room [] Palliative care [] [] Receiving care in room [] Pre-surgical visit [] Trauma [xx] Long length of stay [] ICU visit [] Other: Relational/Emotional Strength [xx] Patient feels connected with others/family/visitors/staff [] Distress [] Loneliness/isolation [] Abandonment Spirituality of Patient [] Person of [place]antell [] Attends Tenriism of their [place] [xx] Believes in Prayer [] Reads Bible or Latter Day materials [] There are Spiritual issues to be addressed Bell Spinner Sousaphones Interventions [] Prayer [xx] Active listening [xx] Non-anxious presence [] Spiritual/emotional support [] Crisis/trauma care [] Spiritual counseling [] Bereavement support [] Provided bereavement packet [] Provided Bible/devotional materials [] Provided toy/stuffed animal, coloring book to patient or family member [] Provided Communion [] Anointing/Economy [] Salvation [] Completed spiritual assessment [] Other: Impact on Illness or Injury [] Angry [] Fearful [] Anxious [] Often cries [] Exhaustion [] Unable to work [] Unable to attend sabianist [] Unable to walk/stand [] Unable to read [] Unable to drive [] Unable to eat/drink [] Unable to sleep [] Unable to be with family [] Patient intubated [] Other: Summary Patient asked lining printer to get nurse to help him with his urinal dada so lining printer did. Bell Spinner Sousaphones returned to room later but doctor aarrived so lining printer did not finish visit or have prayer. Time spent with patient 5 minutes
[2020-11-17] MEDS: morphine 4 mg/mL SDV 1 mL IVP (15:46)
--- NOTE | 2020-11-17 19:14 | PC.NURSE ---
Received report from SONIA Hinojosa. Sons x2 at bedside. Patient has been made comfort measures per patient and family request. Patient appears comfortable at this time. Ortiz catheter in place for comfort.
[2020-11-17] MEDS: LORazepam 2 mg/mL INJ 1 mL IVP (19:35)
--- NOTE | 2020-11-17 19:45 | PC.NURSE ---
Family and patient upset at this time due to oxygen remaining in place as well as all monitoring. Patient becoming very anxious with regards to oxygen and monitoring. Informed Dr Frank about patient's and family's anxiety. Received ok from doctor to discontinue all oxygen and monitoring in the patient's room and to begin administering medications for increased anxiety as ordered. Explained to patient that NC was to be removed and Ativan being administered for his increased anxiety. Patient expressed great thanks. Patient remains alert and oriented presently. Family remaining at bedside. Doctor is aware.
--- NOTE | 2020-11-17 20:05 | PC.NURSE ---
Patient IV access lost at this time. Informed Dr Frakn. May leave out IV for comfort measures and received telephone to include lorazepam 2mg IM every 2 hours as need for increased anxiety.
--- NOTE | 2020-11-17 20:58 | PC.NURSE ---
Shift Note Frequent safety and comfort rounds continue. Orders and/or nursing care completed as indicated. Patient monitored for response to intervention and treatment(s). Education provided includes comfort care measures treatment and his decision to discontinue heated high flow. Patient and/or labor representative verbalizes understanding. Will continue to monitor.
[2020-11-18 00:14] VITALS: BP 102/66; PULSE 82; RESP 19; O2SAT 88
--- NOTE | 2020-11-18 01:20 | PC.NURSE ---
Patient continues on comfort measures. Family at bedside. Patient resting with eyes closed no distress observed. Patient currently on RA with SpO2 85-89% sustained. Patient appears comfortable per FLACC. Family denies needs at this time. Will continue to monitor.
[2020-11-18 04:48] VITALS: PULSE 86; RESP 20; O2SAT 87
[2020-11-18] MEDS: LORazepam 2 mg/mL INJ 1 mL IM (06:27)
--- NOTE | 2020-11-18 06:37 | PC.NURSE ---
Shift Note Frequent safety and comfort rounds continue. Orders and/or nursing care completed as indicated. Patient monitored for response to intervention and treatment(s). Education provided includes lorazepam. Patient and/or data entry representative all verbalized understanding. Patient has had uneventful evening. Sons remained at bedside. Patient currently has SpO2 at 86%. Patient feeling anxious and is requesting something for this which lorazepam was given as ordered and documented. Family expressed thanks as well as patient. Patient mentation slowing but remains aware of self and place. Patient denies other needs. No other distresses observed. Patient continues with comfort measures at this time. . Will continue to monitor.
--- NOTE | 2020-11-18 08:51 | PC.SOCIAL ---
IMM Updated Page 2 updated. Reviewed with pt and family. Initialed, timed and dated. Copy left in chart.
[2020-11-18] MEDS: morphine 10 mg/0.5 mL oral liq UD SUBLINGUAL ×7 (09:30→22:11)
[2020-11-18] MEDS: LORazepam 2 mg/mL INJ 1 mL 1 MG SUBLINGUAL ×4 (12:05→23:05)
--- NOTE | 2020-11-18 12:08 | PM.PN ---
Subjective Subjective: Interval history: He is very weak. Drink a lot of Ensure this morning. Otherwise not eating. At times somewhat restless, wanting to sit up, or reposition. Denies any pain. Vitals/I&O/Wt Last Vital Signs Temp 97.8 F 11/17/20 08:00 Pulse 86 11/18/20 04:48 Resp 20 H 11/18/20 04:48 BP 102/66 11/18/20 00:14 Pulse Ox 87 L 11/18/20 04:48 11/17/20 11/18/20 11/18/20 22:59 06:59 14:59 Output Total 900 / 1000 Balance -900 / -289 Physical Exam Const: COMMON NORMALS: no acute distress GENERAL APPEARANCE: cooperative and frail appearing ORIENTATION/CONSCIOUSNESS: Yes awake OTHER: Weak. Very frail. HENMT: COMMON NORMALS: oropharynx normal Resp: COMMON NORMALS: normal respiratory effort AUSCULTATION: crackles Cardio: COMMON NORMALS: regular rhythm, S1 normal heart sound present, S2 normal heart sound present and No murmurs present (Cardio) RHYTHM: regular rhythm HEART SOUNDS: S1 normal heart sound present and S2 normal heart sound present GI: COMMON NORMALS: Normal to inspection, nondistended, normoactive bowel sounds present, Soft to palpation and non-tender PALPATION: Yes Soft to palpation Extremity: COMMON NORMALS: no joint enlargement and no pedal edema Neuro: COMMON NORMALS: moves all extremities Skin: GENERAL SKIN EXAM: dry skin Urinary Catheter Management^: Ortiz: Cath Placed During This Visit: yes Reason for Continuing Indwelling Catheter: Hospice/Comfort/Palliative Care Urinary Catheter Date of Insertion: 11/17/20 Urinary Catheter Time of Insertion: 14:00 Data : 11/17/20 02:53 11/17/20 02:53 A&P Assessment and plan (1) Acute hypoxemic respiratory failure due to COVID-19: On 11/17 after multiple discussions patient had wanted to wait for family to come before transitioning to comfort care. Was requiring 40 L, 60% FiO2. Once visited by family, he did not want to proceed with aggressive medical care further. He was transitioned to complete comfort care. As per his wishes oxygen also was discontinued. Today he is very weak. He sounds a little bit clear likely due to lack of oral intake or very many secretions. Discussed with him and his family continued comfort measures as needed, discontinuation of aggressive medical care. Further plans are being made with regards to continuation of comfort/hospice measures with consideration of snf facility or perhaps even return home depending on their wishes. As he does get restless/anxious at times, continue Ativan as needed, morphine as needed and other comfort measures, Ortiz. Pleasure feeds. Up to chair if he wants to. Discussed with son Deny. S/p severe COVID-19 complicated by recurrent aspiration events. This of course is complicated by his generalized weakness and deconditioning following the acute illness. Status: Acute (2) Comfort measures only status: Status: Acute (3) Bacterial pneumonia: Status: Acute (4) Atrial fibrillation with RVR: Status: Acute (5) Congestive heart failure: Status: Acute Qualifiers: Heart failure type: biventricular Qualified Code(s): I50.82 - Biventricular heart failure (6) Right-sided heart failure: Status: Acute (7) ASHD (arteriosclerotic heart disease): Status: Acute (8) Hyperlipidemia: Status: Acute Qualifiers: Hyperlipidemia type: mixed hyperlipidemia Qualified Code(s): E78.2 - Mixed hyperlipidemia (9) Hypertension: Status: Acute Qualifiers: Hypertension type: essential hypertension Qualified Code(s): I10 - Essential (primary) hypertension (10) Dysphagia: Status: Acute Additional A&P Information Elevated LFTs: Resolved. Hx of Post-nasal drip Benign prostatic hyperplasia Attestations Medical Necessity Statement*: Continue supportive care with comfort measures, post hospital care planning. Coding Level of Care Code Acute Foreign Correspondent for [facility] Diagnoses Acute hypoxemic respiratory failure due to COVID-19 U07.1; J96.01 Comfort measures only status Z51.5 Bacterial pneumonia J15.9 Atrial fibrillation with RVR I48.91 Congestive heart failure I50.82 Heart failure type: biventricular Right-sided heart failure I50.810 ASHD (arteriosclerotic heart disease) I25.10 Hyperlipidemia E78.2 Hyperlipidemia type: mixed hyperlipidemia Hypertension I10 Hypertension type: essential hypertension Dysphagia R13.10
--- NOTE | 2020-11-18 19:21 | PC.NURSE ---
Received report from SONIA Hinojosa. Patient lying in bed with family at bedside. Patient observed to becoming more restless with increased respirations at 30-35bpm. Family requesting ordered medications for comfort care as ordered to provided needed comfort. Instructed patient's family on lorazepam and morphine. Son verbalized complete understanding.
--- NOTE | 2020-11-18 19:49 | PC.NURSE ---
Shift Note Frequent safety and comfort rounds continue. Orders and/or nursing care completed as indicated. Patient monitored for response to intervention and treatment(s). Education provided includes protocol dosing for pt's oral comfort care medications. Unhooked pt's telemetry patches and SpO2 probe on his finger. Patient and/or assisted sales representative verbalizes understanding. Will continue to monitor.
--- NOTE | 2020-11-18 20:15 | PC.NURSE ---
Patient becoming more restless. Pulling off clothes and covers. Responds appropriately presently. Son remains at bedside.
--- NOTE | 2020-11-18 23:10 | PC.NURSE ---
Son reports patient restless and attempting to pull at de [place] paz catheter and trying to get out of bed. Also reports patient is arguing with son that he (the patient) is the dad and the son is supposed to listen to him. Provided medication as ordered.
[2020-11-19] MEDS: morphine 10 mg/0.5 mL oral liq UD SUBLINGUAL ×4 (00:04→06:05)
[2020-11-19] MEDS: LORazepam 2 mg/mL INJ 1 mL 1 MG SUBLINGUAL ×4 (01:09→07:31)
--- NOTE | 2020-11-19 05:14 | PC.NURSE ---
Shift Note Frequent safety and comfort rounds continue. Orders and/or nursing care completed as indicated. Patient monitored for response to intervention and treatment(s). Provided reinforcement education provided includes Ativan and Morphine. Son verbalized complete understanding. Patient becoming less restless and has stopped pulling at de [place] paz. Son requests to continue with ordered comfort measures. Son denies needs at this time. No distress observed. Will continue to monitor.
--- NOTE | 2020-11-19 07:55 | PC.NURSE ---
0752- Pt's family alerted nursing staff of pt's probable expiration. This nurse did an apical for 60 seconds with no heart sounds.
--- NOTE | 2020-11-19 07:56 | PC.NURSE ---
Notified Dr on pt's time of -0752 Am. Son Deny at bedside. Family is notified.
--- NOTE | 2020-11-19 07:57 | PC.NURSE ---
House sup notified on the pt's expiration
--- NOTE | 2020-11-19 09:00 | PC.NURSE ---
Family stated they will call us to let us know what homes pt had chosen
--- NOTE | 2020-11-19 09:59 | PC.CHAP ---
Pastoral Care Encounter/Spiritual Assessment Type of Contact [] Declined hydrometeorology teacher visit [] Patient/Family/Request visit [] Outpatient visit [] Follow-up visit [] Physician referral [] Code/Alert [] Routine visit [x] Staff referral [] Actively dying [] Patient sleeping [x] Family support [x] [] Out of room [] Palliative care [] [] Receiving care in room [] Pre-surgical visit [] Trauma [] Long length of stay [] ICU visit [] Other: Relational/Emotional Strength [] Patient feels connected with others/family/visitors/staff [] Distress [] Loneliness/isolation [] Abandonment Spirituality of Patient [x] Person of [place] [] Attends Buddhist of their [place] [x] Believes in Prayer [] Reads Bible or Lutheran materials [] There are Spiritual issues to be addressed Machine Cell Tuber Interventions [x] Prayer [x] Active listening [x] Non-anxious presence [x] Spiritual/emotional support [] Crisis/trauma care [] Spiritual counseling [] Bereavement support [] Provided bereavement packet [] Provided Bible/devotional materials [] Provided toy/stuffed animal, coloring book to patient or family member [] Provided Communion [] Anointing/[place] [] Salvation [x] Completed spiritual assessment [] Other: Impact on Illness or Injury [] Angry [] Fearful [] Anxious [] Often cries [] Exhaustion [] Unable to work [] Unable to attend cheondoism [] Unable to walk/stand [] Unable to read [] Unable to drive [] Unable to eat/drink [] Unable to sleep [] Unable to be with family [] Patient intubated [x] Other: Patient Summary Machine Cell Tuber met and prayed with 2 sons. Time spent with patient 30 minutes
--- NOTE | 2020-11-19 11:13 | P.DES_ITS ---
Discharge Providers DDS Date of Admission: 11/03/20 16:07 Date Summary Completed: 11/19/20 Attending Provider at Admission: Regina Rubio Time of : 07:52 Attending Provider at Discharge: James Frank Primary Care Provider: KILO Padilla Diagnoses Hospital Diagnoses (1) Acute hypoxemic respiratory failure due to COVID-19: (2) Comfort measures only status: (3) Bacterial pneumonia: (4) Atrial fibrillation with RVR: (5) Congestive heart failure: Qualifiers: Heart failure type: biventricular Qualified Code(s): I50.82 - Biventricular heart failure (6) Right-sided heart failure: (7) ASHD (arteriosclerotic heart disease): Problem details: Had CABG July [address] Valadez.HAD THREEE VESSEL CABG (8) Hyperlipidemia: Qualifiers: Hyperlipidemia type: mixed hyperlipidemia Qualified Code(s): E78.2 - Mixed hyperlipidemia (9) Hypertension: Qualifiers: Hypertension type: essential hypertension Qualified Code(s): I10 - Essential (primary) hypertension (10) Dysphagia: Reason for Visit Reason for Visit: PNEUMONIA, SOB, AFIB 117 Summary Date and Time of Date of : 11/19/20 Time of : 07:52 Summary Summary: Pleasant 85-year-old gentleman with history of CAD, CABG, A. fib, HLD, HTN, upper respiratory infection, longstanding issue with dysphagia and microaspiration was admitted for cyst management of severe COVID-19 pneumonia, on presentation also with atrial fibrillation with RVR. Viral pneumonia complicated also by bacterial pneumonia with Citrobacter growing on culture. Received treatment with remdesivir, Decadron, breathing treatments, supportive care completed course of antibiotic with Zosyn, subsequently also Levaquin. Received oxygen support, initially requiring 35 L, 51% FiO2 on heated high flow. A. fib with RVR treated with Cardizem drip initially, subsequently transitioned to oral medications with Cardizem, metoprolol. Was seen by cardiology. Echocardiogram showed ejection fraction of 40%, moderately decreased LV systolic function, RV volume overload, moderately increased atrial size, moderately increased RV size, moderate MVR, moderate TVR. Overall oxygenation was gradually improving, came down to 4 L nasal cannula, however, after acute illne ss overall very deconditioned, weak, with persistent episodes of small aspiration. Was assessed by speech therapy with diet modification with dysphagia diet with pudding thick liquids, still had episodes of aspiration. A number of options were discussed with him, including surgical treatment which he declined. He preferred to continue conservative management with diet modification, continued rehabilitation, however, subsequently declined additional assessment by FEES or to attempt elective stenting or PE, also after continued episodes of aspiration, as well as with particularly bad one with significantly worsened hypoxia subsequently, although without signs of sepsis, oxygen requirement came up to as high as 100% FiO2 on heated high flow. Given overall fluctuating on improving course, limited goals of care, he declined to escalate care further and asked to stop all aggressive medical care. Did not want intubation or CPR in case of cardiopulmonary arrest, and subsequently requested to transition to comfort care entirely as per discussions with his family present. This was done gradually with father family visiting him to spend time beforehand as per his wishes. He transition to full comfort care on 11/17. He was noted to pass away peacefully this morning accompanied by family at 7:52 AM. Discharge Plan Discharge Patient Disposition: Condition: DS Attestations Time Spent in /Discharge Care*: greater than 30 min Quality - AMI: AMI present?: No Quality - Stroke: CVA present?: No Quality - VTE: VTE present?: No Deep Vein Thrombosis/Pulmonary Embolism Present on Admission: No Coding Level of Care Code Acute Towel Weaver for [facility] Diagnoses Acute hypoxemic respiratory failure due to COVID-19 U07.1; J96.01 Comfort measures only status Z51.5 Bacterial pneumonia J15.9 Atrial fibrillation with RVR I48.91 Congestive heart failure I50.82 Heart failure type: biventricular Right-sided heart failure I50.810 ASHD (arteriosclerotic heart disease) I25.10 Hyperlipidemia E78.2 Hyperlipidemia type: mixed hyperlipidemia Hypertension I10 Hypertension type: essential hypertension Dysphagia R13.10
--- NOTE | 2020-11-19 11:30 | PC.NURSE ---
Family called Elodia brasher dgtr of pt called to let us know the name of the home. [facility] home is called and house sup is notified as well. Pt body moved to our morgue.
== END 2020-11-19 12:48 | disposition expired | DRG 177 ==
LOC: ER 14:51 → CSU 17:53
PROVIDERS: Student in an Organized Health Care Education/Training Program; Admitting Provider Hospitalist; Emergency Provider Family Medicine; PCP Nurse Practitioner Family; Visit Provider Internal Medicine
DX: U07.1 COVID-19 (principal); J12.82 Pneumonia due to coronavirus disease 2019; J96.01 Acute respiratory failure with hypoxia; J15.8 Pneumonia due to other specified bacteria; I48.20 Chronic atrial fibrillation, unspecified; I25.10 Atherosclerotic heart disease of native coronary artery without angina pectoris; Z95.1 Presence of aortocoronary bypass graft; E78.2 Mixed hyperlipidemia; I11.0 Hypertensive heart disease with heart failure; I50.82 Biventricular heart failure; R13.10 Dysphagia, unspecified; N40.0 Benign prostatic hyperplasia without lower urinary tract symptoms; I08.1 Rheumatic disorders of both mitral and tricuspid valves; Z51.5 Encounter for palliative care; Z66 Do not resuscitate
CPT/HCPCS: 36415; 36600; 51702; 71045; 71046; 71275; 80048; 80051; 80053; 80061; 80202; 81001; 82330; 82550; 82728; 82803; 82805; 83036; 83540; 83550; 83605; 83735; 83880; 84145; 84439; 84443; 84481; 84484; 85025; 85378; 85651; 86140; 86403; 87040; 87070; 87077; 87186; 87205; 87426; 87449; 87635; 87641; 92522; 92526; 92610; 93005; 93306; 94640; 96365; 96372; 96375; 97110; 97163; 97166; 97530; 97535; 99285; J1100; J1650; J1940; J2060; J2270; J2543; J3370; J3490; J7050; J7614; J7626; J7644; Q0144; Q9967